=== PATIENT | female | born 1930 | race Caucasian/White ===

== ENCOUNTER 2016-06-03 12:57 | Inpatient (IN) | payer MEDICARE, OTHER ==
[~2016-06-03] VITALS: Ht 157.5 cm; Wt 54.0 kg
[~2016-06-03 12:57] MED LIST: APIX2.5T PO; DILT60TA33 PO; LEXA10TA PO; LISI-515 PO; METO100T PO; NEXI20CA PO; PRAV10TA PO; TRAV0.00 EACH EYE
[2016-06-03 12:59] VITALS: BP 173/78; PULSE 54; RESP 20; TEMP 97.3; O2SAT 91
[2016-06-03 13:15] VITALS: BP 191/84; PULSE 52; RESP 26; TEMP 97.8; O2SAT 84
[2016-06-03] MEDS ORDERED: SODIUM CHLORIDE 0.9% FLUSH 5 ML FLUSH IVF PRN (13:45)
[2016-06-03 13:48] LABS: BLOOD GAS BASE EXCESS -2.3 mmol/L (-2-2); BLOOD GAS CARBOXYHEMOGLOBIN 1.3 % (0-4); BLOOD GAS HCO3 21 mmol/L (22-26); BLOOD GAS METHEMOGLOBIN 0.3 % (0-2); BLOOD GAS O2 HGB SATURATION 93 % (90-100); BLOOD GAS OXYGEN CONTENT 14.2 Vol % (12.0-20.0); BLOOD GAS PCO2 31 mmHg (38-42); BLOOD GAS PO2 68 mmHG (61-120); BLOOD GAS TOTAL HGB 10.8 G/DL (12.0-16.0); CRITICAL VALUE NO; DRAW SITE LT RADIAL; LITER FLOW 4 L/M; NUMBER OF ARTERIAL PUNCTURES 1; OXYGEN DEVICE NASAL CANNULA; TEMP CORR TO 98.6; ULNAR PULSE PRESENT
[2016-06-03 13:49] LABS: STAT YES
[2016-06-03 13:56] LABS: AUTOMATED NEUTROPHIL # 3.3 TH/MM3 (1.8-7.7); BASOPHIL % 0.7 % (0.0-2.0); EOSINOPHIL # 0.1 TH/MM3 (0-0.4); EOSINOPHIL % 1.8 % (0.0-4.0); HEMATOCRIT 34.2 % (35.0-46.0); HEMO FLAGS DIFF FINAL; LYMPH % 20.6 % (9.0-44.0); LYMPHOCYTE # 1.1 TH/MM3 (1.0-4.8); MEAN CELL VOLUME 92.2 FL (80.0-100.0); MEAN CORPUSCULAR HEMOGLOBIN 30.9 PG (27.0-34.0); MEAN CORPUSCULAR HGB CONC 33.5 % (32.0-36.0); MONO % 14.2 % (0.0-8.0); NEUT % 62.7 % (16.0-70.0); PLATELET COUNT 308 TH/MM3 (150-450); RED CELL DISTRIBUTION WIDTH 16.3 % (11.6-17.2); WHITE BLOOD COUNT 5.3 TH/MM3 (4.0-11.0)
[2016-06-03 14:10] LABS: BACTERIA, URINE RARE /hpf; BLOOD, URINE NEG (NEG); GLUCOSE,URINE NEG (NEG); KETONE, URINE NEG (NEG); MUCUS URINE FEW /lpf (OCC); NITRITE,URINE NEG (NEG); SQUAMOUS EPITHELIAL CELL URINE 1 /hpf (0-5)
[2016-06-03 14:12] LABS: COMMENT (UR) CATH-CULTURE IND; CULTURE IF INDICATED CATH CULTURE IND; URINE COLOR LIGHT AMBER (YELLW/STRAW)
[2016-06-03 14:13] LABS: APTT (PATIENT) 34.5 SEC (24.3-30.1); INTERNATIONAL NORMALIZED RATIO 1.5 RATIO; PROTHROMBIN TIME - PATIENT 16.7 SEC (9.8-11.6)
[2016-06-03 14:16] LABS: ANION GAP 6 MEQ/L (5-15); BICARBONATE 25.6 MEQ/L (21.0-32.0); BLOOD UREA NITROGEN 5 MG/DL (7-18); CHLORIDE 107 MEQ/L (98-107); GLOMERULAR FILTRATION RATE 82 ML/MIN (>89); SODIUM (NA) 139 MEQ/L (136-145)
--- NOTE | 2016-06-03 14:24 | PD ---
HPI Chief Complaint: Respiratory Distress Time Seen by Provider: 13:12 Travel History International Travel<30 days: No Contact w/Intl Traveler<30days: No Traveled to known affect area: No History of Present Illness HPI Patient is a 86-year-old female with history of HTN, CVA/TIA, A. fib who presents the emergency department with complaint of diarrhea. Patient states that she had a stroke last January/February and ever since has been ill with diarrhea. It has increased slightly over the course the last week, and is now darker. Patient is anticoagulated for history of CVA/TIA. Patient is slightly dyspneic on exam and though she initially did not complain of this, upon further questioning was dyspneic for the last 2 days at home. She has not had any cough or chest congestion, no documented fevers. She denies any history of underlying lung disease. No chest pain. PFSH Past Medical History Hx Anticoagulant Therapy: Yes Alzheimer's Disease: Yes Atrial Fibrillation: Yes Anxiety: Yes Depression: Yes Heart Rhythm Problems: Yes (RVR) Cardiac Catheterization: Yes (ablation) Cardiovascular Problems: Yes High Cholesterol: Yes (resolved) Cerebrovascular Accident: Yes Dementia: Yes (slight) Diminished Hearing: Yes GERD: Yes Hiatal Hernia: Yes Hypertension: Yes Neurologic: Yes Immunizations Current: Yes ?: Not Menopausal: Yes Past Surgical History Abdominal Surgery: Yes (HERNIA ) Section: Yes Eye Surgery: Yes (removal of cataracts - bilateral) Gynecologic Surgery: Yes (removal of ovarian cyst) Hysterectomy: Yes Tonsillectomy: Yes Other Surgery: Yes (DERMOID CYST REMOVED AT 46 YEARS OF AGE, ) Social History Alcohol Use: Yes (1 per day) Tobacco Use: No Substance Use: No Allergies-Medications (Allergen,Severity, Reaction): Coded Allergies: Lactose (Verified Allergy, Severe, Cramping, 02/14/16) Reported Meds & Prescriptions Reported Meds & Active Scripts Active Pravastatin 10 Mg Tab 10 Mg PO DAILY Eliquis (Apixaban) 2.5 Mg Tab 2.5 Mg PO BID@ Reported Lexapro (Escitalopram Oxalate) 10 Mg Tab 10 Mg PO DAILY Nexium (Esomeprazole DR) 20 Mg Capdr 20 Mg PO DAILY Metoprolol Tartrate 100 Mg Tab 100 Mg PO BID Review of Systems ROS Limitations: Poor Historian Except as stated in HPI: all other systems reviewed are Neg Physical Exam Exam Limitations: Poor Historian Narrative GENERAL: Elderly female in mild respiratory distress SKIN: Warm and dry. HEAD: Normocephalic. EYES: No scleral icterus. No injection or drainage. ENT: Mucous membranes pink and moist. NECK: Supple CARDIOVASCULAR: Bradycardic with heart rate in the 50s, regular rhythm. No murmur appreciated. RESPIRATORY: Mild respiratory distress, decreased in bilateral bases GASTROINTESTINAL: Abdomen soft, non-tender, nondistended. MUSCULOSKELETAL: No obvious deformities. No edema. NEUROLOGICAL: Awake and alert. Motor grossly within normal limits. Normal speech. PSYCHIATRIC: Appropriate mood and affect; insight and judgment normal. Data Data Last Documented VS Vital Signs Date Time Temp Pulse Resp B/P Pulse Ox O2 Delivery O2 Flow Rate FiO2 06/03/16 15:40 50 23 195/85 96 Nasal Cannula 3 06/03/16 13:15 97.8 Orders Complete Blood Count With Diff (06/03/16 13:33) Basic Metabolic Panel (Bmp) (06/03/16 13:33) D-Dimer (06/03/16 13:33) Act Partial Throm Time (Ptt) (06/03/16 13:33) Prothrombin Time / Inr (Pt) (06/03/16 13:33) Troponin I (06/03/16 13:33) Arterial Blood Gas (Abg) (06/03/16 13:33) Urinalysis - C+S If Indicated (06/03/16 13:33) Iv Access Insert/Monitor (06/03/16 13:33) Electrocardiogram (06/03/16 13:33) Ecg Monitoring (06/03/16 13:33) Oximetry (06/03/16 13:33) Oxygen Administration (06/03/16 13:33) Chest, Single Ap (06/03/16 13:33) Cath For Specimen (06/03/16 13:33) Sodium Chloride 0.9% Flush (Ns Flush) (06/03/16 13:45) Type And Screen (06/03/16 13:33) Urine Culture (06/03/16 13:40) Ct Pulmonary Angiogram (06/03/16 14:16) Potassium Chloride (Kcl) (06/03/16 14:45) Iohexol 350 Inj (Omnipaque 350 Inj) (06/03/16 15:30) Labs Laboratory Tests Test 06/03/16 06/03/16 06/03/16 13:30 13:40 14:25 White Blood Count 5.3 TH/MM3 Red Blood Count 3.70 MIL/MM3 Hemoglobin 11.4 GM/DL Hematocrit 34.2 % Mean Corpuscular Volume 92.2 FL Mean Corpuscular Hemoglobin 30.9 PG Mean Corpuscular Hemoglobin 33.5 % Concent Red Cell Distribution Width 16.3 % Platelet Count 308 TH/MM3 Mean Platelet Volume 8.2 FL Neutrophils (%) (Auto) 62.7 % Lymphocytes (%) (Auto) 20.6 % Monocytes (%) (Auto) 14.2 % Eosinophils (%) (Auto) 1.8 % Basophils (%) (Auto) 0.7 % Neutrophils # (Auto) 3.3 TH/MM3 Lymphocytes # (Auto) 1.1 TH/MM3 Monocytes # (Auto) 0.8 TH/MM3 Eosinophils # (Auto) 0.1 TH/MM3 Basophils # (Auto) 0.0 TH/MM3 CBC Comment DIFF FINAL Differential Comment Prothrombin Time 16.7 SEC Prothromb Time International 1.5 RATIO Ratio Activated Partial 34.5 SEC Thromboplast Time D-Dimer Quantitative (PE/DVT) 0.78 MG/L FEU Sodium Level 139 MEQ/L Potassium Level 2.9 MEQ/L Chloride Level 107 MEQ/L Carbon Dioxide Level 25.6 MEQ/L Anion Gap 6 MEQ/L Blood Urea Nitrogen 5 MG/DL Creatinine 0.68 MG/DL Estimat Glomerular Filtration 82 ML/MIN Rate Random Glucose 103 MG/DL Calcium Level 8.4 MG/DL Troponin I LESS THAN 0.02 NG/ML Urine Color LIGHT MAX Urine Turbidity CLEAR Urine pH 6.0 Urine Specific [place] 1.020 Urine Protein TRACE mg/dL Urine Glucose (UA) NEG mg/dL Urine Ketones NEG mg/dL Urine Occult Blood NEG Urine Nitrite NEG Urine Bilirubin NEG Urine Urobilinogen LESS THAN 2.0 MG/DL Urine Leukocyte Esterase TRACE Urine RBC 1 /hpf Urine WBC 1 /hpf Urine Squamous Epithelial 1 /hpf Cells Urine Bacteria RARE /hpf Urine Mucus FEW /lpf Microscopic Urinalysis Comment CATH-CULTURE IND Blood Gas Puncture Site LT RADIAL Blood Gas Patient Temperature 98.6 Blood Gas HCO3 21 mmol/L Blood Gas Base Excess -2.3 mmol/L Blood Gas Oxygen Saturation 93 % Arterial Blood pH 7.45 Arterial Blood Partial 31 mmHg Pressure CO2 Arterial Blood Partial 68 mmHG Pressure O2 Arterial Blood Oxygen Content 14.2 Vol % Arterial Blood 1.3 % Carboxyhemoglobin Arterial Blood Methemoglobin 0.3 % Blood Gas Hemoglobin 10.8 G/DL Oxygen Delivery Device NASAL CANNULA Blood Gas Liter Flow 4 L/M Blood Type O POSITIVE Antibody Screen NEGATIVE Blood Bank Comment MDM Medical Decision Making Medical Screen Exam Complete: Yes Emergency Medical Condition: Yes Medical Record Reviewed: Yes Differential Diagnosis 86-year-old female with history of HTN, CVA/TIA, A. fib here with complaint of chronic diarrhea acutely worsened over the last several days to week, slightly darker in color with dyspnea for the last 2 days. Differential includes chronic diarrhea, electrolyte abnormality, dehydration, GI bleed, coagulopathy, pulmonary embolism, pneumonia, ACS, arrhythmia. Narrative Course Patient placed on monitor, IV established and blood obtained. O2 saturations borderline placed on supplemental oxygen. Twelve-lead EKG shows sinus bradycardia, no notable ST abnormalities, normal intervals. CBC, BMP, coags, type and screen troponin, d-dimer, urinalysis, ABG were obtained and notable for pH 7.45, PCO2 31, bicarbonate 21, PaO2 68. D-dimer elevated 0.78. Potassium 2.9, replaced with 80 mg orally. Portable chest x-ray obtained that by my read shows large left pleural effusion and small right pleural effusion. Mild cardiomegaly. CT pulmonary angiogram showed no evidence of PE. Moderate right and moderate to large left pleural effusion with bibasilar consolidation. Patient given dose of IV Lasix. She remains hypoxic and will be admitted for further management. Diagnosis Primary Impression: Pleural effusion Additional Impressions: Hypoxia Shortness of breath Diarrhea Qualified Code: R19.7 - Diarrhea, unspecified type Admitting Information Admitting Physician Requests: Admit Larissa Mckenzie MD Jun 03, 2016 14:24
[2016-06-03 14:28] LABS: POTASSIUM 2.9 MEQ/L (3.5-5.1)
--- NOTE | 2016-06-03 14:29 | RADRPT ---
EXAM DATE/TIME: 06/03/2016 13:49 [facility] COMPARISON: No previous studies available for comparison. INDICATIONS : Patient states shortness of breath. MEDICAL HISTORY : None. SURGICAL HISTORY : None. ENCOUNTER: Initial ACUITY: 1 day PAIN SCORE: 2/10 LOCATION: Bilateral chest FINDINGS: The cardiac silhouette is enlarged. There is increased density at the left base with silhouetting lef t hemidiaphragm. There is overall prominence of the interstitium. CONCLUSION: 1. Moderate left effusion. Some degree of left base atelectasis or consolidation is also needs to be considered. 2. Cardiomegaly. 3. Diffuse interstitial prominence likely representing pulmonary venous hypertension or mild edema. Jerry Jacobo MD on June 03, 2016 at 14:26 Board Certified Radiologist. This report was verified electronically.
[2016-06-03] MEDS ORDERED: POTASSIUM CHLORIDE 20 MEQ CONTROLLED RELEASE TAB PO ONE (14:45)
[2016-06-03] MEDS ORDERED: IOHEXOL 350 MG/ML 10 ML VIAL (for RAD DIAG) IV ONE (15:30)
[2016-06-03 15:40] VITALS: BP 195/85; PULSE 50; RESP 23; O2SAT 96
--- NOTE | 2016-06-03 15:44 | RADRPT ---
EXAM DATE/TIME: 06/03/2016 15:17 [facility] COMPARISON: No previous studies available for comparison. INDICATIONS : Short of breath. Evaluate for pulmonary embolism. IV CONTRAST: 50 cc Omnipaque 350 (iohexol) IV RADIATION DOSE: 7.05 CTDIvol (mGy) MEDICAL HISTORY : Cardiovascular disease. Cerebrovascular disease. Hypertension. SURGICAL HISTORY : Hysterectomy. ENCOUNTER: Initial ACUITY: 2 days PAIN SCALE: 0/10 LOCATION: chest TECHNIQUE: Volumetric scanning of the chest was performed using a pulmonary embolism protocol MIP images were re constructed. Using automated exposure control and adjustment of the mA and/or kV according to patien t size, radiation dose was kept as low as reasonably achievable to obtain optimal diagnostic quality images. FINDINGS: There is no pulmonary embolus. Moderate right and moderate to large left pleural effusions are present with basilar dependent consol idation. Mild left atrial enlargement. There is right and left-sided coronary artery calcification. Contrast r efluxes down the hepatic veins, can be seen in the setting of tricuspid regurgitation. No lymphadenopathy demonstrated. CONCLUSION: 1. No pulmonary embolus. 2. Moderate right and moderate to large left pleural effusions with basilar consolidation. 3. Mild left atrial margin. Possible tricuspid regurg. 4. Coronary artery calcification. Jerry Mcdonough MD on June 03, 2016 at 15:40 Board Certified Radiologist. This report was verified electronically.
[2016-06-03] MEDS ORDERED: FUROSEMIDE 40 MG/4 ML VIAL IV PUSH ONE (16:00)
[2016-06-03] MEDS ORDERED: hydrALAZINE HCL 20 MG/ML VIAL IV PUSH ONE (16:30)
[2016-06-03] MEDS ORDERED: SODIUM CHLORIDE 0.9% FLUSH 5 ML FLUSH FLUSH PRN (17:30)
[2016-06-03] MEDS ORDERED: NALOXONE HCL 0.4 MG/ML AMP IV PRN (17:30)
[2016-06-03] MEDS ORDERED: ACETAMINOPHEN 325 MG TAB PO PRN (17:30)
[2016-06-03] MEDS ORDERED: ONDANSETRON HCL 4 MG/2 ML VIAL IVP PRN (17:30)
[2016-06-03] MEDS ORDERED: NON-FORMULARY DRUG (Esomeprazole DR (Nexium) 20 MG) PO SCH (17:30)
[2016-06-03 18:38] VITALS: BP 172/75
--- NOTE | 2016-06-03 18:42 | MH ---
DATE OF ADMISSION 06/03/2016 ADMITTING PHYSICIAN Jorge Macedo MD ATTENDING PHYSICIAN Dr. Jaxson Kelly. CHIEF COMPLAINT Diarrhea, respiratory distress. HISTORY OF THE PRESENT ILLNESS The patient is a very pleasant 86-year-old female with a past medical history significant for hypertension, atrial fibrillation, cerebrovascular accident / transient ischemic attack who presents to the emergency room with complaints of diarrhea. Per patient she had a stroke last January and ever since she has been ill with diarrhea. It has increased slightly over the course of the last week and now is darker. The patient is anticoagulated for a history of cerebrovascular accident / transient ischemic attack. The patient is slightly dyspneic on examination and though she initially did not complain of this, upon further questioning she did say that her dyspnea has been progressively worsening for the last two days. Denies any cough or chest congestion. Denies any chest pain. Denies any pedal edema. Denies any fever. Per patient she had CT-guided aspiration of left pleural effusion two months ago at [facility]. Her maintenance associate is Dr. Abel. She also had cardiac ablation times two. Her micro photographer is Dr. Lares. In the ER a chest x-ray done showed moderate left effusion, some degree of left base atelectasis or consolidation. The D-dimer done in the ER was elevated at 0.78, so a CT angiography was requested which ruled out any pulmonary embolism but it did show moderate right moderate to large left pleural effusions with basilar consolidation. Because of the patient's symptomatology and the abnormal findings, the patient was admitted for further evaluation. PAST MEDICAL HISTORY 1. Atrial fibrillation. 2. Hypertension. 3. Hyperlipidemia. 4. History of cerebrovascular accident. 5. Gastroesophageal reflux disease. 6. Hiatal hernia. 7. History of pleural effusion. PAST SURGICAL HISTORY 1. Hysterectomy. 2. Removal of dermoid cyst. 3. Right inguinal hernia repair. 4. Bilateral cataract surgery. 5. Tonsillectomy. 6. Cardiac ablation times two. 7. CT-guided aspiration of left pleural effusion. SOCIAL HISTORY Denies any tobacco use or illicit drug use. Has one glass of wine per day. Lives with her . FAMILY HISTORY Significant for dementia in mother. Prostate cancer in father. ALLERGIES LACTOSE. MEDICATIONS Active medications: 1. Pravastatin 10 milligrams p.o. q.h.s. 2. Eliquis 2.5 milligrams p.o. twice a day. 3. Lexapro 10 milligrams p.o. daily. 4. Nexium 20 milligrams p.o. daily. 5. Metoprolol tartrate 100 milligrams p.o. twice a day. REVIEW OF SYSTEMS GENERAL: Complains of generalized weakness. HEENT: Denies any headache, ear, nose, and throat pain. RESPIRATORY: Does complain of dyspnea. Denies any wheezing. CARDIOVASCULAR: Denies any chest pain. Denies any orthopnea or paroxysmal nocturnal dyspnea. GASTROINTESTINAL: Does complain of chronic diarrhea since January of last year. No nausea or vomiting. MUSCULOSKELETAL: No joint pains. NEUROLOGICAL: Mild weakness of the left leg since her stroke in January of last year. PSYCHIATRIC: No depression or anxiety. Denies any suicidal ideation or homicidal intention. PHYSICAL EXAMINATION GENERAL: Elderly, frail, female in mild respiratory distress on 2 liters of oxygen. SKIN: Warm and dry. HEAD: Atraumatic, normocephalic. EYES: Pupils are equal, round and reactive to light. Extraocular movements are intact. No scleral icterus. No conjunctival injection or drainage. EARS, NOSE, AND THROAT: Mucous membranes are pink and moist. NECK: Supple. No JVD. CARDIOVASCULAR: Bradycardic with heart rate in the 50s. Regular rhythm. A 3/6 systolic ejection murmur. LUNGS: Mild respiratory distress. Decreased breath sounds bilaterally with basilar rales. GASTROINTESTINAL: Abdomen is soft and nontender, nondistended. No bowel sounds heard in all four quadrants. No organomegaly. MUSCULOSKELETAL: No obvious deformity. No edema. NEUROLOGICAL: The patient is awake and alert. Strength is 4/4 in the left lower extremity. Normal speech. PSYCHIATRIC: Appropriate mood and affect. Insight and judgment are normal. VITAL SIGNS: Blood pressure at the time of examination 195/85, heart rate is 50, respiratory rate 23, pulse oximetry is 96% on 3 liters nasal cannula. LABORATORY DATA Labs done showed a WBC of 5.3, hemoglobin 11.4, hematocrit 34.2. Platelets 308,000. PT is 16.7, INR is 1.5. D-dimer is 0.78. Potassium is 2.9, chloride 107, BUN 5, creatinine 0.68. Calcium is 8.4. Troponin I is less than 0.02. Urinalysis is positive for leukocyte esterase. ABG shows a bicarbonate of 21, oxygen is 93%. IMAGING A chest x-ray showed large pleural effusion and small right pleural effusion. Mild cardiomegaly. CT pulmonary angiogram showed no evidence of pulmonary embolism. Moderate right and moderate to large left pleural effusion with bibasilar consolidation. A 12-lead EKG showed sinus bradycardia, no notable ST abnormalities, normal intervals. DIAGNOSTIC IMPRESSION 1. Bilateral pleural effusions, left greater than right. 2. Dyspnea. 3. Hypoxia. 4. Hypokalemia. 5. Diarrhea. 6. History of left pleural effusion. 7. Atrial fibrillation. 8. Hyperlipidemia. 9. Gastroesophageal reflux disease. 10. Depression. PLAN We will admit the patient to cardiac care unit. Start the patient on continuous telemetry monitoring. We will start the patient empirically on Rocephin. We will continue the patient on oxygen, titrate to keep pulse oximetry about 92% . We will request pulmonary consultation with Dr. Lares, cardiology consultation with Dr. Abel. Heme-occult stool done in the emergency room was negative. We will request a 2-D echocardiogram. Patient has received potassium in the emergency room and also a dose of IV Lasix. We will repeat potassium level. We will continue the patient on IV Lasix 40 milligrams IV twice a day. We will monitor the electrolytes and replace as needed. We will also request a GI consultation with Dr. Eid. We will request a CT scan of the abdomen to rule out any colitis or diverticulitis. We will continue the home medications as appropriate. Deep venous thrombosis prophylaxis with Eliquis. Peptic ulcer disease prophylaxis with Nexium. We will check the CBC and the BMP in the a.m. we will also check TSH, T4 and lipid profile. We will also check lipase and amylase. Further management depends upon the hospital course. The patient is acutely ill, has presented with shortness of breath and diarrhea. Recent labs have shown severe hypokalemia and the CT scan has shown bilateral pleural effusions. The patient will need a complete pulmonary, gastrointestinal and cardiologic workup. The patient will need an inpatient stay of minimum three midnights. Anticipate discharge to home with home health care when stable. MD SANJAY Caldera
[2016-06-03 20:00] VITALS: BP 191/86; PULSE 68; RESP 17; TEMP 96.4; O2SAT 97
[2016-06-03] MEDS: SODIUM CHLORIDE 0.9% FLUSH 5 ML FLUSH FLUSH SCH (20:57)
[2016-06-03] MEDS: METOPROLOL TARTRATE 100 MG TAB PO SCH (20:57)
--- NOTE | 2016-06-03 21:04 | RADRPT ---
EXAM DATE/TIME: 06/03/2016 20:20 [facility] COMPARISON: CT PULMONARY ANGIOGRAM, June 03, 2016, 15:17. INDICATIONS : Diarrhea. ORAL CONTRAST: No oral contrast ingested. RADIATION DOSE: 8.73 CTDIvol (mGy) MEDICAL HISTORY : Cardiovascular disease. Dementia. Alzheimers.Hypertension. CVA. SURGICAL HISTORY : Hysterectomy. ENCOUNTER: Initial ACUITY: 1 day PAIN SCALE: 0/10 LOCATION: lower quadrant TECHNIQUE: Volumetric scanning of the abdomen and pelvis was performed. Using automated exposure control and ad justment of the mA and/or kV according to patient size, radiation dose was kept as low as reasonably achievable to obtain optimal diagnostic quality images. FINDINGS: Fluid-filled colon noted. No obstruction or high-grade inflammatory changes are demonstrated. Noncontrast appearance of the solid organs within normal limits. Incidentally seen 2 cm cyst of the r ight kidney. Both kidneys are excreting the contrast from the CT pulmonary and are gram done earlier today. There is excreted contrast collected in the urinary bladder. A small bubble of gas is seen in the urinary bladder is well. Several small dependently layering stones are seen in an otherwise normal-appearing gallbladder. No p erceptible wall thickening. No ductal stone or ductal dilatation. There is dense atherosclerotic calcification of the abdominal aorta. No aneurysm demonstrated. There are moderate right and moderate to large left pleural effusions at the visualized lung bases. CONCLUSION: 1. Nonspecific fluid-filled colon. No obstruction or perceptible inflammatory changes. 2. Small stones in the gallbladder without evidence of conus cystitis or biliary obstruction. 3. Atherosclerotic and tortuous abdominal aorta. No aneurysm. 4. Bilateral pleural effusions. 5. Small bubble of gas in the urinary bladder; was the bladder recently catheterized? Jerry Mcdonough MD on June 03, 2016 at 20:58 Board Certified Radiologist. This report was verified electronically.
[2016-06-04] VITALS (8 sets, daily range): BP systolic 106–194; BP diastolic 46–83; PULSE 56–63; RESP 17–18; TEMP 96.5–98.2; O2SAT 92–97
[2016-06-04] MEDS: ZOLPIDEM TARTRATE 5 MG TAB PO PRN ×2 (01:47→21:40)
[2016-06-04] MEDS: DOCUSATE SODIUM 100 MG CAP PO SCH ×2 (04:21→17:15)
[2016-06-04 05:12] LABS: HEMATOCRIT 35.6 % (35.0-46.0); MEAN CELL VOLUME 90.7 FL (80.0-100.0); MEAN CORPUSCULAR HEMOGLOBIN 30.5 PG (27.0-34.0); MEAN CORPUSCULAR HGB CONC 33.6 % (32.0-36.0); PLATELET COUNT 315 TH/MM3 (150-450); RED BLOOD COUNT 3.92 MIL/MM3 (4.00-5.30); RED CELL DISTRIBUTION WIDTH 16.3 % (11.6-17.2); REVIEW FLAG FINAL; WHITE BLOOD COUNT 6.4 TH/MM3 (4.0-11.0)
[2016-06-04 05:45] LABS: ALKALINE PHOSPHATASE 80 U/L (45-117); ALT (GPT) 26 U/L (10-53); AMYLASE 60 U/L (25-115); ANION GAP 11 MEQ/L (5-15); AST (GOT) 23 U/L (15-37); BICARBONATE 23.3 MEQ/L (21.0-32.0); BLOOD UREA NITROGEN 6 MG/DL (7-18); CHLORIDE 109 MEQ/L (98-107); FREE T4 1.63 NG/DL (0.76-1.46); GLOMERULAR FILTRATION RATE 85 ML/MIN (>89); HDL CHOLESTEROL 27.9 MG/DL (40.0-60.0); LDL CHOLESTEROL 64 MG/DL (0-99); SODIUM (NA) 143 MEQ/L (136-145); TOTAL BILIRUBIN ADULT 0.6 MG/DL (0.2-1.0)
[2016-06-04 06:03] LABS: POTASSIUM 2.9 MEQ/L (3.5-5.1)
[2016-06-04] MEDS: APIXABAN 2.5 MG TABLET PO SCH ×2 (06:34→17:15)
[2016-06-04] MEDS: FUROSEMIDE 40 MG/4 ML VIAL IV PUSH SCH (08:33)
[2016-06-04] MEDS: METOPROLOL TARTRATE 100 MG TAB PO SCH ×2 (08:34→21:00)
[2016-06-04] MEDS: PRAVASTATIN SOD 10 MG TAB PO SCH (08:34)
[2016-06-04] MEDS: POTASSIUM CHLORIDE 10 MEQ CONTROLLED RELEASE TAB PO SCH (08:35)
[2016-06-04] MEDS: ESCITALOPRAM OXALATE 10 MG TAB PO SCH (08:35)
[2016-06-04] MEDS: PANTOPRAZOLE SOD 20 MG DELAYED RELEASE TAB PO SCH (08:35)
[2016-06-04] MEDS: SODIUM CHLORIDE 0.9% FLUSH 5 ML FLUSH FLUSH SCH ×2 (08:35→21:00)
[2016-06-04] MEDS ORDERED: POTASSIUM CHLOR 10 MEQ PREMIX 100 ML IV ONE (09:00)
[2016-06-04] MEDS ORDERED: hydrALAZINE HCL 20 MG/ML VIAL IV PUSH PRN (11:45)
[2016-06-04] MEDS: amLODIPine BESYLATE 5 MG TAB PO SCH (12:16)
--- NOTE | 2016-06-04 12:52 | MB ---
cc: LORNE WOLFF M.D., VINCENT G. DO DATE OF CONSULTATION: 06/04/2016 REASON FOR CONSULTATION Atrial fibrillation, pleural effusion. PRIMARY [employer]ER Dr. Lorne Wolff. HISTORY OF PRESENT ILLNESS Eleanor Alfonso is a pleasant 86-year-old female who presents to [facility] Emergency Room on June 03, 2016. She initially had a complaint of diarrhea which has been going on for 4-5 weeks. Over the last week it has been getting significantly worse. She was noted to be slightly dyspneic on exam and did not initially complain of it but upon further questioning by the emergency room she states that she has been a little more short of breath at home than usual for the past two days. She has not had any cough or congestion, fever or chills. She denies chest pain. In seeing her today she states that her shortness of breath is still there but somewhat better. She denies chest pain. She previously was at [facility] and had aspiration of a left pleural effusion. PAST MEDICAL HISTORY 1. Atrial fibrillation. 2. Hypertension. 3. Hyperlipidemia. 4. History of CVA (January 2016) with mild left-sided weakness as residual. 5. Gastroesophageal reflux disease. 6. Hiatal hernia. 7. History of pleural effusion. PAST SURGICAL HISTORY 1. Hysterectomy. 2. Removal of a dermoid cyst. 3. Right inguinal hernia repair. 4. Bilateral cataract surgery. 5. Tonsillectomy. 6. Atrial fibrillation ablation x2. 7. Aspiration of a left pleural effusion (2 months ago). ALLERGIES LACTULOSE. MEDICATIONS 1. Eliquis 2.5 mg b.i.d. 2. Lexapro 10 mg daily. 3. Metoprolol tartrate 100 mg b.i.d. 4. Pravastatin 10 mg daily. 5. Nexium 20 mg daily. FAMILY HISTORY Denies premature coronary artery disease or sudden cardiac within the family. SOCIAL HISTORY Denies any tobacco or illicit drug abuse. Has one glass of wine per day. Lives with her . REVIEW OF SYSTEMS 14-systems were reviewed including osteopathic pertinent positives and negatives above, otherwise negative. PHYSICAL EXAMINATION VITAL SIGNS: Temperature 97.1, heart rate 60, blood pressure 178/83, respirations 18, pulse ox 97% on room air. GENERAL: In general the patient appears well, in no acute distress, alert, awake and oriented x3. Extraocular muscles intact. Mucous membranes are moist. NECK: Supple. No JVD at 45 degrees. No carotid bruits heard bilaterally. Carotid upstroke is brisk in nature. HEART: Heart is regular rate and rhythm. Positive first and second heart sounds with a 2/6 mid peaking crescendo-decrescendo murmur to the right sternal border. LUNGS: Lungs have decreased breath sounds at bilateral bases. ABDOMEN: Soft, nontender, nondistended. No organomegaly noted. EXTREMITIES: Show no clubbing, cyanosis or edema. NEUROLOGIC: Mild weakness of the left leg. SKIN: Warm, dry and intact. OSTEOPATHIC: Mild kyphoscoliosis, no lordosis or paraspinal tender points. LABORATORY FINDINGS Hemoglobin 11.9, hematocrit 35.6, platelets 315. Potassium 2.9, BUN 6, creatinine 0.66, troponin 0.02 increasing to 0.15 and then down to 0.02. Total cholesterol 101, LDL 64, HDL 27.9, triglycerides 47, TSH 2.18. Electrocardiogram (June 03, 2016 at 1408) sinus bradycardia, nonspecific ST-T wave changes. IMPRESSION 1. Significant chronic diarrhea. 2. Bilateral pleural effusions with recent aspiration of left pleural effusion. 3. Significant hypokalemia most likely due to diarrhea. 4. Hypoalbuminemia. 5. Dyspnea secondary to pleural effusions. 6. Minimal elevation of troponin. 7. Atrial fibrillation. 8. History of recent stroke (January 2016). 9. Hyperlipidemia. 10. Gastroesophageal reflux disease. 11. Depression. RECOMMENDATIONS 1. Eleanor may be having increase in her pleural effusions for multiple reasons including possible diastolic dysfunction with an elevated blood pressure, possible atrial fibrillation with rapid ventricular response (currently in normal sinus rhythm) or due to third spacing due to hypoalbuminemia. 2. Will check an echo to look at her overall left ventricular function, cardiac structure and possible valvulopathies. Previous echocardiogram showed normal function with moderate aortic stenosis and mild aortic regurgitation. 3. Her atrial fibrillation is currently controlled on metoprolol. 4. She will continue on her Eliquis for her atrial fibrillation. If there is a plan for possible thoracentesis then this can be stopped in anticipation. 5. Extensive diarrhea for which GI has been consulted. 6. Hypokalemia most likely due to her chronic diarrhea. 7. Mild elevation in troponin most likely secondary to bilateral pleural effusions and shortness of breath. Thank you for allowing me to see Eleanor Alfonso, if there are any questions, please do not hesitate to call. Fox Gomez DO VGP/TLL /10:26 AM /11:31 AM
--- NOTE | 2016-06-04 13:02 | PD.CONS ---
HPI History of Present Illness This is a 86 year old female who presented to the Emergency department with complaints of diarrhea. She has been having 2 to 3 loose stools daily since January when she was hospitalized with a stroke then went to Rehab. Shortly after being in Rehab she developed the loose diarrhea stools.She one stool yesterday that was darker than normal. She is on Eliquis for a Hx of Afib. Denies nausea or vomiting, no abdominal pain, has no seen any blood in stools. Does have shortness of breath C/O being dyspnic at home for 2 days.Last colonoscopy and EGD was 2 to 3 years ago and was normal. Discussed possible procedures colonoscopy and EGD she is not certain she would want a colonoscopy done. (Fang Rubio) PFSH Past Medical History Afib CVA Anxiety Depression CAD Dementia GERD Hiatal hernia HTN Past Surgical History Cataract Colonoscopy/EGD Hernia surgery Ovarian cyst removal Hysterectomy Tonsillectomy (Fang Rubio) Coded Allergies: Lactose (Verified Allergy, Unknown, Cramping, 06/03/16) Medications Reported Meds & Active Scripts Active Pravastatin 10 Mg Tab 10 Mg PO DAILY Eliquis (Apixaban) 2.5 Mg Tab 2.5 Mg PO BID@,18 Reported Lexapro (Escitalopram Oxalate) 10 Mg Tab 10 Mg PO DAILY Nexium (Esomeprazole DR) 20 Mg Capdr 20 Mg PO DAILY Metoprolol Tartrate 100 Mg Tab 100 Mg PO BID Family History noncontributory Social History Non-smoker Drinks one drink daily (Fang Rubio) Review of Systems Gastrointestinal: COMPLAINS OF: Diarrhea (Fang Rubio) GI Exam Vitals I&O Vital Signs Date Time Temp Pulse Resp B/P Pulse Ox O2 Delivery O2 Flow Rate FiO2 06/04/16 12:00 97.0 56 17 194/78 93 06/04/16 10:57 97 Nasal Cannula 21 06/04/16 08:00 97.1 60 18 178/83 92 06/04/16 00:00 97.3 60 17 171/72 96 06/03/16 20:00 96.4 68 17 191/86 97 06/03/16 18:38 58 21 172/75 95 Nasal Cannula 3 06/03/16 15:40 50 23 195/85 96 Nasal Cannula 3 06/03/16 13:54 96 Nasal Cannula 6 06/03/16 13:35 Nasal Cannula 6 06/03/16 13:15 97.8 52 26 191/84 84 06/03/16 12:59 97.3 54 20 173/78 91 Room Air I/O 06/03/16 06/03/16 06/03/16 06/04/16 06/04/16 06/04/16 07:00 15:00 23:00 07:00 15:00 23:00 Intake Total 120 ml 240 ml Balance 120 ml 240 ml Intake Oral 120 ml 240 ml IV Total 0 ml 0 ml # Voids 5 2 Laboratory Test 06/03/16 06/03/16 06/03/16 06/03/16 13:30 13:40 14:25 14:35 White Blood Count 5.3 TH/MM3 Red Blood Count 3.70 MIL/MM3 Hemoglobin 11.4 GM/DL Hematocrit 34.2 % Mean Corpuscular Volume 92.2 FL Mean Corpuscular Hemoglobin 30.9 PG Mean Corpuscular Hemoglobin 33.5 % Concent Red Cell Distribution Width 16.3 % Platelet Count 308 TH/MM3 Mean Platelet Volume 8.2 FL Neutrophils (%) (Auto) 62.7 % Lymphocytes (%) (Auto) 20.6 % Monocytes (%) (Auto) 14.2 % Eosinophils (%) (Auto) 1.8 % Basophils (%) (Auto) 0.7 % Neutrophils # (Auto) 3.3 TH/MM3 Lymphocytes # (Auto) 1.1 TH/MM3 Monocytes # (Auto) 0.8 TH/MM3 Eosinophils # (Auto) 0.1 TH/MM3 Basophils # (Auto) 0.0 TH/MM3 CBC Comment DIFF FINAL Differential Comment Prothrombin Time 16.7 SEC Prothromb Time International 1.5 RATIO Ratio Activated Partial 34.5 SEC Thromboplast Time D-Dimer Quantitative (PE/DVT) 0.78 MG/L FEU Sodium Level 139 MEQ/L Potassium Level 2.9 MEQ/L Chloride Level 107 MEQ/L Carbon Dioxide Level 25.6 MEQ/L Anion Gap 6 MEQ/L Blood Urea Nitrogen 5 MG/DL Creatinine 0.68 MG/DL Estimat Glomerular Filtration 82 ML/MIN Rate Random Glucose 103 MG/DL Calcium Level 8.4 MG/DL Troponin I LESS THAN 0.02 0.15 NG/ML NG/ML Urine Color LIGHT MAX Urine Turbidity CLEAR Urine pH 6.0 Urine Specific [place] 1.020 Urine Protein TRACE mg/dL Urine Glucose (UA) NEG mg/dL Urine Ketones NEG mg/dL Urine Occult Blood NEG Urine Nitrite NEG Urine Bilirubin NEG Urine Urobilinogen LESS THAN 2.0 MG/DL Urine Leukocyte Esterase TRACE Urine RBC 1 /hpf Urine WBC 1 /hpf Urine Squamous Epithelial 1 /hpf Cells Urine Bacteria RARE /hpf Urine Mucus FEW /lpf Microscopic Urinalysis Comment CATH-CULTURE IND Blood Gas Puncture Site LT RADIAL Blood Gas Patient Temperature 98.6 Blood Gas HCO3 21 mmol/L Blood Gas Base Excess -2.3 mmol/L Blood Gas Oxygen Saturation 93 % Arterial Blood pH 7.45 Arterial Blood Partial 31 mmHg Pressure CO2 Arterial Blood Partial 68 mmHG Pressure O2 Arterial Blood Oxygen Content 14.2 Vol % Arterial Blood 1.3 % Carboxyhemoglobin Arterial Blood Methemoglobin 0.3 % Blood Gas Hemoglobin 10.8 G/DL Oxygen Delivery Device NASAL CANNULA Blood Gas Liter Flow 4 L/M Blood Type O POSITIVE Antibody Screen NEGATIVE Blood Bank Comment Test 06/04/16 06/04/16 00:06 04:28 Troponin I 0.02 NG/ML White Blood Count 6.4 TH/MM3 Red Blood Count 3.92 MIL/MM3 Hemoglobin 11.9 GM/DL Hematocrit 35.6 % Mean Corpuscular Volume 90.7 FL Mean Corpuscular Hemoglobin 30.5 PG Mean Corpuscular Hemoglobin 33.6 % Concent Red Cell Distribution Width 16.3 % Platelet Count 315 TH/MM3 Mean Platelet Volume 8.2 FL Sodium Level 143 MEQ/L Potassium Level 2.9 MEQ/L Chloride Level 109 MEQ/L Carbon Dioxide Level 23.3 MEQ/L Anion Gap 11 MEQ/L Blood Urea Nitrogen 6 MG/DL Creatinine 0.66 MG/DL Estimat Glomerular Filtration 85 ML/MIN Rate Random Glucose 110 MG/DL Calcium Level 8.5 MG/DL Total Bilirubin 0.6 MG/DL Aspartate Amino Transf 23 U/L (AST/SGOT) Alanine Aminotransferase 26 U/L (ALT/SGPT) Alkaline Phosphatase 80 U/L Total Protein 6.3 GM/DL Albumin 3.1 GM/DL Triglycerides Level 47 MG/DL Cholesterol Level 101 MG/DL LDL Cholesterol 64 MG/DL HDL Cholesterol 27.9 MG/DL Cholesterol/HDL Ratio 3.62 RATIO Amylase Level 60 U/L Lipase 166 U/L Free Thyroxine 1.63 NG/DL Thyroid Stimulating Hormone 2.180 uIU/ML 3rd Gen Date/Time Procedure Status Source Growth 06/04/16 00:45 Cyclospora Exam Resulted Stool Stool Pending 06/04/16 00:45 Cryptosporidium Exam - Final Resulted Stool Stool NEGATIVE - NO CRYPTOSPORIDIUM ANTIGEN... 06/04/16 00:45 Giardia Antigen (DRE) - Final Resulted Stool Stool NEGATIVE - NO GIARDIA ANTIGEN DETECTE... 06/04/16 00:45 Stool Occult Blood (DRE) - Final Resulted Stool Stool HEMOCCULT NEGATIVE 06/04/16 00:45 Received Stool Stool Pending 3 00:45 Cancelled Stool Stool 06/03/16 18:30 Rotavirus Antigen - Final Complete Stool Stool NEGATIVE - ROTAVIRUS ANTIGEN IS ABSEN... 06/03/16 13:40 Urine Culture - Preliminary Resulted Urine Catheterized Urine NO GROWTH IN 24 HOURS. Physical Examination HEENT: Pupils round and reactive to light; normocephalic; atraumatic; no jaundice. Throat is clear. NECK: Neck is supple, no JVD, no lymphadenopathy. CHEST: Chest is clear to auscultation and percussion. CARDIAC: Regular rate and rhythm with no murmur gallop or rubs. ABDOMEN: Soft, nondistended, nontender; no hepatosplenomegaly; bowel sounds are present in all four quadrants. EXTREMITIES: No clubbing, cyanosis, or edema. SKIN: Normal; no rash; no jaundice. 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 (Fang Rubio INTERIOR DESIGN PROFESSIONAL) Assessment and Plan Assessment: (1) Diarrhea (2) GERD (gastroesophageal reflux disease) Plan This is an 86 year old female admitted with diarrhea which has been chronic since January. Has 2 to 3 loose stools a day. She did notice a stool yesterday that was darker than normal. She is on Eliquis for Afib, had CVA in January. She may need an EGD but Eliquis would need to be held for several days. H&H is stable at 11.9/35.6. She is not interested in a colonoscopy at this time. Stool cultures are pending.CT abdomen and pelvis showed fluid filled colon, small gallstones. Plan -Check stool cultures -Check stools for occult blood -Follow H&H -Continue PPI -May need EGD would need to hold Eliquis several days -Supportive care Further recommendations will follow Patient was seen by Dr. Eid and myself, this consult was written on his behalf. (Fang Rubio) Physician Comments Seen and examined with [facility], admitted with diarrhea. Stool studies-p. CT -ve. at the bedside and states that they see Dr. Monge as an outpt. Discussed with Drs. Wagoner and Monica. Dr. Anderson will take over care from tomorrow. Thank you (Nel Eid MD) Problem Qualifiers (1) Diarrhea: Qualified Code: R19.7 - Diarrhea, unspecified type (2) GERD (gastroesophageal reflux disease): Qualified Code: K21.9 - Gastroesophageal reflux disease, esophagitis presence not specified Fang Rbuio Jun 04, 2016 13:01 Nel Eid MD Jun 04, 2016 14:43
[2016-06-04] MEDS ORDERED: POTASSIUM CHLORIDE 20 MEQ CONTROLLED RELEASE TAB PO ONE (14:30)
--- NOTE | 2016-06-04 14:43 | HHI.PR ---
Subjective Subjective Remarks Alert resting in bed Pleasantly confused Pale Diarrhea last p.m., small amount this a.m. with formed stool before diarrhea in room Review of Systems Constitutional Constitutional: Fatigue, Weakness (generalized) Pulmonary Respiratory: Coughing (occasional), Shortness of Breath (mild at rest) GI/Abdomen GI/Abdominal Exam: Diarrhea Musculoskeletal MS: Stiffness (chronic) Psychiatric Psychiatric: Normal Mood, Anxiety Vitals/Results Intake & Output 06/03/16 06/03/16 06/04/16 15:00 23:00 07:00 Intake Total 120 ml 240 ml Balance 120 ml 240 ml Intake Oral 120 ml 240 ml IV Total 0 ml 0 ml # Voids 5 2 Vital Signs Vital Signs Date Time Temp Pulse Resp B/P Pulse Ox O2 Delivery O2 Flow Rate FiO2 06/04/16 13:50 172/60 06/04/16 12:00 97.0 56 17 194/78 93 06/04/16 10:57 97 Nasal Cannula 21 06/04/16 08:00 97.1 60 18 178/83 92 06/04/16 00:00 97.3 60 17 171/72 96 06/03/16 20:00 96.4 68 17 191/86 97 06/03/16 18:38 58 21 172/75 95 Nasal Cannula 3 06/03/16 15:40 50 23 195/85 96 Nasal Cannula 3 CBC/BMP: 06/04/16 0428 06/04/16 0428 Lab Results Laboratory Tests Test 06/03/16 06/04/16 06/04/16 14:35 00:06 04:28 Troponin I 0.15 NG/ML 0.02 NG/ML White Blood Count 6.4 TH/MM3 Red Blood Count 3.92 MIL/MM3 Hemoglobin 11.9 GM/DL Hematocrit 35.6 % Mean Corpuscular Volume 90.7 FL Mean Corpuscular Hemoglobin 30.5 PG Mean Corpuscular Hemoglobin 33.6 % Concent Red Cell Distribution Width 16.3 % Platelet Count 315 TH/MM3 Mean Platelet Volume 8.2 FL Sodium Level 143 MEQ/L Potassium Level 2.9 MEQ/L Chloride Level 109 MEQ/L Carbon Dioxide Level 23.3 MEQ/L Anion Gap 11 MEQ/L Blood Urea Nitrogen 6 MG/DL Creatinine 0.66 MG/DL Estimat Glomerular Filtration 85 ML/MIN Rate Random Glucose 110 MG/DL Calcium Level 8.5 MG/DL Total Bilirubin 0.6 MG/DL Aspartate Amino Transf 23 U/L (AST/SGOT) Alanine Aminotransferase 26 U/L (ALT/SGPT) Alkaline Phosphatase 80 U/L Total Protein 6.3 GM/DL Albumin 3.1 GM/DL Triglycerides Level 47 MG/DL Cholesterol Level 101 MG/DL LDL Cholesterol 64 MG/DL HDL Cholesterol 27.9 MG/DL Cholesterol/HDL Ratio 3.62 RATIO Amylase Level 60 U/L Lipase 166 U/L Free Thyroxine 1.63 NG/DL Thyroid Stimulating Hormone 2.180 uIU/ML 3rd Gen Microbiology Microbiology 06/03/16 Rotavirus Antigen - Final, Complete NEGATIVE - ROTAVIRUS ANTIGEN IS ABSEN... 06/04/16 , Received Pending 06/04/16 Cyclospora Exam, Resulted Pending 06/04/16 Cryptosporidium Exam - Final, Resulted NEGATIVE - NO CRYPTOSPORIDIUM ANTIGEN... 06/04/16 Giardia Antigen (DRE) - Final, Resulted NEGATIVE - NO GIARDIA ANTIGEN DETECTE... 06/04/16 Stool Occult Blood (DRE) - Final, Resulted HEMOCCULT NEGATIVE Current Medications Active Medications Acetaminophen (Tylenol) 650 mg Q4H PRN PO; Start 06/03/16 at 17:30 Amlodipine Besylate (Norvasc) 5 mg DAILY PO Last administered on 06/04/16 12:16 ; Admin Dose 5 MG; Start 06/04/16 at 11:45 Apixaban (Eliquis) 2.5 mg BID@06,18 PO Last administered on 06/04/16 06:34; Admin Dose 2.5 MG; Start 06/03/16 at 18:00 Docusate Sodium (Colace) 100 mg Q12H PO; Start 06/03/16 at 17:30 Escitalopram Oxalate (Lexapro) 10 mg DAILY PO Last administered on 06/04/16 08: 35; Admin Dose 10 MG; Start 06/03/16 at 17:30 Furosemide (Lasix Inj) 40 mg DAILY IV PUSH; Start 06/04/16 at 09:00 Furosemide (Lasix Inj) 40 mg ONCE ONCE IV PUSH Last administered on 06/03/16 15:56; Admin Dose 40 MG; Start 06/03/16 at 16:00; Stop 06/03/16 at 16:01; Status DC Hydralazine HCl (Apresoline Inj) 10 mg ONCE ONCE IV PUSH Last administered on 16:45; Admin Dose 10 MG; Start 06/03/16 at 16:30; Stop 06/03/16 at 16: 31; Status DC Hydralazine HCl (Apresoline Inj) 10 mg Q6HR PRN IV PUSH; Start 06/04/16 at 11: 45 Iohexol (Omnipaque 350 Inj) 50 ml STK-MED ONCE IV Last administered on 15:30; Admin Dose 50 ML; Start 06/03/16 at 15:30; Stop 06/03/16 at 15:31; Status DC IV Flush (NS Flush) 2 ml BID FLUSH Last administered on 06/04/16 08:35; Admin Dose 2 ML; Start 06/03/16 at 21:00 IV Flush (NS Flush) 2 ml UNSCH PRN FLUSH; Start 06/03/16 at 17:30 Metoprolol Tartrate (Lopressor) 100 mg BID PO Last administered on 06/04/16 08: 34; Admin Dose 100 MG; Start 06/03/16 at 21:00 Naloxone HCl (Narcan Inj) 0.4 mg UNSCH PRN IV; Start 06/03/16 at 17:30 Non-Formulary Medication 20 mg DAILY PO; Start 06/03/16 at 17:30; Status UNV Ondansetron HCl (Zofran Inj) 4 mg Q6H PRN IVP; Start 06/03/16 at 17:30 Pantoprazole Sodium (Protonix) 20 mg DAILY PO Last administered on 06/04/16 08: 35; Admin Dose 20 MG; Start 06/03/16 at 17:45 Potassium Chloride 40 meq 40 meq DAILY PO Last administered on 06/04/16 08:35; Admin Dose 40 MEQ; Start 06/04/16 at 09:00 Potassium Chloride 40 meq 40 meq ONCE ONCE PO; Start 06/04/16 at 14:30; Stop at 14:31; Status DC Potassium Chloride (KCl 10 Meq Premix Inj) 100 ml @ 100 mls/hr NOW ONCE IV Last administered on 06/04/16 11:48; Admin Dose 100 MLS/HR; Start 06/04/16 at 09:00; Stop 06/04/16 at 09:59; Status DC Potassium Chloride (KCl 20 Meq Premix Inj) 100 ml @ 50 mls/hr ONCE ONCE IV; Start 06/04/16 at 15:00; Stop 06/04/16 at 16:59 Potassium Chloride (KCl) 80 meq ONCE ONCE PO Last administered on 06/03/16 15: 52; Admin Dose 80 MEQ; Start 06/03/16 at 14:45; Stop 06/03/16 at 14:46; Status DC Pravastatin Sodium (Pravachol) 10 mg DAILY PO Last administered on 06/04/16 08: 34; Admin Dose 10 MG; Start 06/03/16 at 17:30 Zolpidem Tartrate (Ambien) 5 mg HS PRN PO Last administered on 06/04/16 01:47 ; Admin Dose 5 MG; Start 06/03/16 at 17:30 Physical Exam General General Appearance: Well Developed, Pale, Anxious Appearance Remarks Thin frail Eyes Eye Exam: Pupils Equal, Pupils Reactive Ears & Nose Ears & Nose Exam: Nasal Mucosa [place] (pale) Throat Throat Exam: Oral Mucosa [place] & Moist (pale) Neck Neck Exam: Neck Supple Pulmonary Resp Exam: Decreased Bases, Diminished Breath Sounds, Poor Inspiratory Effort ( low volumes) Cardiology CV Exam: Murmur (holosystolic, grade 4/6 or greater) Gastrointestinal/Abdomen GI Exam: Soft, Bowel Sounds Present Musculoskeletal MS Exam: Atrophy (muscular) Integumentary Skin Exam: Warm, Dry, Intact (thin) Neurologic Neuro Exam: Alert, Awake Neuro Remarks Fair historian, assist with history Assessment/Plan Assessment/Plan 1. Bilateral pleural effusions, left greater than right. Active diurese is from IV Lasix yesterday. Low air volumes mild shortness of breath, improved. diastolic dysfunction with an elevated blood pressure may be some of the reasons for the effusions along with hypo-albuminemia. Echo to be done. Will follow cardiac planning. 2. Dyspnea. O2 management, medical management, secondary to the bilateral pleural effusions. 3. Hypoxia. O2 management resolving 4. Hypokalemia. Continues, IV potassium boluses today. Probable secondary to diarrhea 5. Diarrhea. When necessary medicines for medical management. Appreciate GI consult and assistance with this plan a care 6. History of left pleural effusion. IV Lasix given with active diuresis. Appreciate pulmonary input. May need thoracentesis in the future. 7. Atrial fibrillation. Controlled medical management, appreciate cardiac consult and input. Currently in sinus rhythm, meds include Metroprolol and Eliquis. 8. Hyperlipidemia. Controlled medical management 9. Gastroesophageal reflux disease. Medical management 10. Depression. Medical management 11. HTN , will eval medication management. Has by mouth meds, as well as IV Apresoline prn. Discussed with nurse Discussed with patient Discussed with Dr. Kelly, patient seen on his behalf Cheri Zeng Jun 04, 2016 14:43
[2016-06-04] MEDS ORDERED: POTASSIUM CHLOR 20 MEQ PREMIX 100 ML IV ONE (15:00)
--- NOTE | 2016-06-04 15:26 | EKG ---
Date Performed: 06/03/2016 Time Performed: 14:08:53 PTAGE: 86 years EKG: SINUS BRADYCARDIA MODERATE INTRAVENTRICULAR CONDUCTION DELAY NONSPECIFIC ST & T-WAVE ABNORM ALITY BORDERLINE ECG Compared to the PREVIOUS TRACING the atrial fibrillation has resolved PREVIOUS TRACIN02/13/2016 21.48 DOCTOR: Anne Tai Interpretating Date/Time 06/04/2016 15:26:08
[2016-06-04] MEDS: ENALAPRILAT 2.5 MG/2 ML VIAL IV PUSH PRN (17:14)
[2016-06-05] VITALS (10 sets, daily range): BP systolic 96–199; BP diastolic 49–96; PULSE 58–71; RESP 16–20; TEMP 96.1–98.2; O2SAT 90–95
--- NOTE | 2016-06-05 05:20 | MB ---
cc: HAI VILLAFANA MD, ARJUN D. MD DATE OF CONSULTATION 06/04/2016 REQUESTING PHYSICIAN Hai Villafana MD REASON FOR CONSULTATION Evaluation of pleural effusion. HISTORY OF PRESENT ILLNESS Ms. Alfonso is a an 86-year-old female with history of hypertension, atrial fibrillation, CVA. The patient was admitted at [facility] around [facility] with a TIA. She went to a rehab facility. She stayed there for 15 days. The patient states that after ever since she left the rehab place she has been having diarrhea. She does not have abdominal pain, no blood or mucus in the stool, no fever or chills. The patient came to the hospital with worsening of her shortness of breath. She had a CT of the chest done. It does not show any pulmonary embolism. She showed bilateral pleural effusion, mild atelectasis. Her CBC shows WBC count of 6.4, hemoglobin 11.9, hematocrit 35.6, MCV 90, platelet count 315. Her sodium was 143, potassium 2.9, chloride 109, CO2 23, BUN 6, creatinine 0.66. Blood gas on 4 liters nasal cannula - pH 7.45, pCO2 31, pO2 68, bicarb 21. PAST HISTORY 1. History of pleural effusion. 2. CVA. 3. Hypertension. 4. Atrial fibrillation. 5. Chronic diarrhea. 6. Gastroesophageal reflux. 7. Hiatal hernia. 8. Bilateral cataract surgery. 9. Cardiac ablation done by Dr. Abel. 10. History of thoracentesis. CURRENT MEDICATIONS 1. Enalapril as needed. 2. Amlodipine 5 mg a day. 3. Hydralazine 10 mg q. 6 hours. 4. Lasix 40 mg a day. 5. Potassium 40 mEq a day. 6. Metoprolol 100 mg twice a day. 7. Eliquis 2.5 mg twice a day. 8. Protonix 40 mg a day. ALLERGIES LACTOSE. SOCIAL HISTORY She is , lives with her . Denies any smoking or alcohol abuse. FAMILY HISTORY Unremarkable. REVIEW OF SYSTEMS She has lost weight, has swelling in her legs, has diarrhea. No abdominal pain. No seizures. Does have history of stroke. PHYSICAL EXAMINATION GENERAL: A frail elderly female, mild short of breath, not in any acute distress. VITAL SIGNS: Blood pressure 194/81, heart rate 60, respirations 18, temperature 96.1. HEENT EXAMINATION: Pupils are equal and reactive to light. She has had bilateral cataract surgery done. Oral mucosa, nasal mucosa normal. NECK: Supple. JVP not raised. CHEST: She has decreased breath sounds at the bases and has dull percussion note. CV: S1 and S2 normal. ABDOMEN: Soft, nondistended. Bowel sounds are present. EXTREMITIES: 1+ pedal edema. 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 No focal deficit. IMPRESSION 1. Bilateral pleural effusion, left more than right. 2. Atelectasis. 3. Atrial fibrillation. 4. Chronic diarrhea. 5. History of CVA. 6. History of thoracentesis in the past. PLAN 1. I discussed with the patient about thoracentesis. She feels that she is diuresing a lot with Lasix and she wants to give it a chance. If she is not better, then she will agree for thoracentesis. 2. Workup for diarrhea is underway. 3. Continue diuresis. Lasix, potassium, monitor electrolytes. 4. Further treatment will depend on her course in the hospital. Thank you Dr. Hai Villafana for this consultation. MD YUAN Osborne/SSB /5:57 PM /4:04 AM
[2016-06-05] MEDS: DOCUSATE SODIUM 100 MG CAP PO SCH ×2 (05:30→17:14)
[2016-06-05] MEDS: APIXABAN 2.5 MG TABLET PO SCH (05:34)
[2016-06-05 06:08] LABS: BICARBONATE 24.1 MEQ/L (21.0-32.0); POTASSIUM 3.7 MEQ/L (3.5-5.1)
[2016-06-05] MEDS: FUROSEMIDE 40 MG/4 ML VIAL IV PUSH SCH (09:00)
--- NOTE | 2016-06-05 09:24 | HHI.GIFU ---
GI Follow-up Note Consult Follow-up Subjective: Patient admitted with SOB and chronic diarrhea. GI consult done yesterday by Dr Eid. Stool studies neg so far. She was evaluated [address] Monge for chronic diarrhea and colon bxs were pos for collagenous colitis but she did not follow up for treatment. Objective: PHYSICAL EXAMINATION: Vitals signs stable No fever CARDIAC: Regular rate and rhythm with 2/6 systolic murmur. ABDOMEN: Soft, nondistended, nontender. EXTREMITIES: No clubbing, cyanosis, or edema. SKIN: warm and dry. No jaundice. HAUL TRUCK DRIVER: Tearful affect. Cooperative. Available Data (labs, X- Rays, Procedues) : ASSESSMENT/PLAN: 1. Chronic diarrhea-2013 w/u with EGD and colonoscopy revealed duodenal bxs neg for celiac sprue but pos for collagenous colitis. One of the more effective treatments is oral budesonide 9mg/d but rec R/O C. Diff first. Dr Chase to follow up tomorrow. It was a pleasure seeing Eleanor Alfonso. Thank you for this consult. Entered by: Catalino Cardozo MD Jun 05, 2016 09:24
[2016-06-05] MEDS: PANTOPRAZOLE SOD 20 MG DELAYED RELEASE TAB PO SCH (10:12)
[2016-06-05] MEDS: ESCITALOPRAM OXALATE 10 MG TAB PO SCH (10:13)
[2016-06-05] MEDS: SODIUM CHLORIDE 0.9% FLUSH 5 ML FLUSH FLUSH SCH ×2 (10:13→21:55)
[2016-06-05] MEDS: amLODIPine BESYLATE 5 MG TAB PO SCH (10:13)
[2016-06-05] MEDS: PRAVASTATIN SOD 10 MG TAB PO SCH (10:13)
[2016-06-05] MEDS: POTASSIUM CHLORIDE 10 MEQ CONTROLLED RELEASE TAB PO SCH (10:13)
[2016-06-05] MEDS: METOPROLOL TARTRATE 100 MG TAB PO SCH (10:13)
--- NOTE | 2016-06-05 11:28 | EC ---
Study Study Date:06/04/2016 STUDY CONCLUSIONS SUMMARY - Left ventricle: The cavity size was normal. Wall thickness was at the upper limits of normal. Systolic function was normal. The estimated ejection fraction was in the range of 60% to 65%. Wall motion was normal; there were no regional wall motion abnormalities. - Aortic valve: There was moderate stenosis. Moderate regurgitation. - Mitral valve: Mildly calcified annulus. Mild regurgitation. - Tricuspid valve: Mild-moderate regurgitation. - Pulmonic valve: Mild regurgitation. - Pericardium, extracardiac: There was a left pleural effusion. If LV function is below 40, please consider prescribing an ACEI or ARB or document rationale for non-use. PROCEDURE DATA STUDY STATUS: Elective. Procedure: Transthoracic echocardiography. Image quality was good. Scanning was performed from the parasternal, apical, and subcostal acoustic windows. Study completion: The patient tolerated the procedure well. Transthoracic echocardiography. M-mode, complete 2D, complete spectral Doppler, and color Doppler. Height: Height: 62in. Weight: Weight: 118.8lb. Body mass index: BMI: 21.8kg/m^2. Body surface area: BSA: 1.53m^2. Patient status: Inpatient. CARDIAC ANATOMY LEFT VENTRICLE: The cavity size was normal. Wall thickness was at the upper limits of normal. Systolic function was normal. The estimated ejection fraction was in the range of 60% to 65%. Wall motion was normal; there were no regional wall motion abnormalities. AORTIC VALVE: Moderately calcified leaflets. Doppler: There was moderate stenosis. Moderate regurgitation. Valve area: 0.69cm^2(VTI). Indexed valve area: 0.45cm^2/m^2 (VTI). Valve area: 0.64cm^2 (Vmax). Indexed valve area: 0.42cm^2/m^2 (Vmax). Mean gradient: 19mm Hg (S). Peak gradient: 34mm Hg (S). MITRAL VALVE: Mildly calcified annulus. Doppler: There was no evidence for stenosis. Mild regurgitation. Valve area by pressure half-time: 4cm^2. Indexed valve area by pressure half-time: 2.61cm^2/m^2. Peak gradient: 5mm Hg (D). LEFT ATRIUM: The atrium was mildly to moderately dilated. PULMONIC VALVE: Not well visualized. Doppler: There was no evidence for stenosis. Mild regurgitation. TRICUSPID VALVE: The valve appears to be grossly normal. Doppler: There was no evidence for stenosis. Mild-moderate regurgitation. Peak gradient: 62mm Hg (D). RIGHT ATRIUM: The atrium was mildly dilated. PERICARDIUM: There was no pericardial effusion. Pleura: There was a left pleural effusion. Patient weight: 118.8lb _Ejection fraction:_ 65-75% _Fractional shortening:_ 32% up to 5Kg 5-11.5Kg 11.6-22.9Kg 23-45Kg 45-57Kg Aortic Root 7-13 <17 13-22 17-27 17-27 LA diam 6-13 <23 24-38 33-47 37-40 RVID 10-17 7-15 7-15 7-18 8-17 LVIDd 12-22 <32 24-38 33-47 37-40 LVPW 2-4 3-6 5-7 6-8 7-8 IVS 2-4 3-6 5-7 6-8 7-8 BASIC MEASUREMENTS ADULT NORMAL Left ventricle LV internal dimension, ED, chordal *37.9 mm 43-52 level, PLAX LV internal dimension, ES, chordal 25.4 mm 23-38 level, PLAX Fractional shortening, chordal level, 33 % >29 PLAX LV posterior wall thickness, ED 11.5 mm IVS/LVPW ratio, ED 1 <1.3 Ventricular septum Septal thickness, ED 11.5 mm Aortic valve Leaflet separation *9 mm 15-26 Left atrium Anterior-posterior dimension 45 mm Anterior-posterior dimension index *2.94 cm/m^2 <2.2 Right ventricle RV internal dimension, ED, PLAX 27.8 mm 19-38 BASIC MEASUREMENTS ADULT NORMAL Aortic valve Leaflet separation *9 mm 15-26 Aorta Root diameter, ED 32 mm 20-37 DOPPLER MEASUREMENTS ADULT NORMAL Aortic valve Peak velocity, S 292 cm/s Mean velocity, S 205 cm/s VTI, S 71.6 cm Mean gradient, S 19 mm Hg Peak gradient, S 34 mm Hg Valve area, VTI 0.69 cm^2 Valve area index, VTI 0.45 cm^2/m^2 Valve area, Vmax 0.64 cm^2 Valve area index, Vmax 0.42 cm^2/m^2 Regurgitant velocity, ED 384 cm/s Regurgitant deceleration 3040 cm/s^2 Regurgitant pressure half-time 370 ms Regurgitant gradient, ED 59 mm Hg Mitral valve Peak E-wave velocity 117 cm/s Peak A-wave velocity 34.6 cm/s Pressure half-time 55 ms Peak gradient, D 5 mm Hg Peak E/A ratio 3.4 Valve area, pressure half-time 4 cm^2 Valve area index, pressure half-time 2.61 cm^2/m^2 Tricuspid valve Peak gradient, D 62 mm Hg Maximal inflow velocity 394 cm/s Systemic veins Estimated CVP 10 mm Hg Pulmonic valve Peak velocity, S 65.2 cm/s LEGEND: Mean values are shown as u=mean value. Asterisk (*) bowers values outside specified normal range. Prepared and signed by Fox Gomez [id number]
[2016-06-05 11:57] LABS: C. DIFF EPI 027 PRESUMPTIVE NEGATIVE (NEGATIVE); C. DIFF TOXIN PCR NEGATIVE (NEGATIVE)
--- NOTE | 2016-06-05 13:06 | PD.CARD.PN ---
Subjective Subjective Remarks No chest pain, no shortnes of breath concerned about the fluid and diarrhea Objective Medications Current Medications Medications (Trade) Dose Ordered Sig/Luis A Route Start Time Stop Time Status Last Admin (NS Flush) 2 ml UNSCH PRN FLUSH 06/03/16 17:30 (NS Flush) 2 ml BID FLUSH 06/03/16 21:00 06/05/16 10:13 (Tylenol) 650 mg Q4H PRN PO 06/03/16 17:30 (Zofran Inj) 4 mg Q6H PRN IVP 06/03/16 17:30 (Colace) 100 mg Q12H PO 06/03/16 17:30 (Ambien) 5 mg HS PRN PO 06/03/16 17:30 06/04/16 21:40 (Narcan Inj) 0.4 mg UNSCH PRN IV 06/03/16 17:30 (Eliquis) 2.5 mg BID@06,18 PO 06/03/16 18:00 Hold 06/05/16 05:34 (Lexapro) 10 mg DAILY PO 06/03/16 17:30 06/05/16 10:13 (Lopressor) 100 mg BID PO 06/03/16 21:00 06/05/16 10:13 (Pravachol) 10 mg DAILY PO 06/03/16 17:30 06/05/16 10:13 (Protonix) 20 mg DAILY PO 06/03/16 17:45 06/05/16 10:12 (Lasix Inj) 40 mg DAILY IV PUSH 06/04/16 09:00 (KCl) 40 meq DAILY PO 06/04/16 09:00 06/05/16 10:13 (Norvasc) 5 mg DAILY PO 06/04/16 11:45 06/05/16 10:13 (Apresoline Inj) 10 mg Q6HR PRN IV PUSH 06/04/16 11:45 (Vasotec Inj) 2.5 mg Q6H PRN IV PUSH 06/04/16 16:45 06/04/16 17:14 Vital Signs / I&O Vital Signs Date Time Temp Pulse Resp B/P Pulse Ox O2 Delivery O2 Flow Rate FiO2 06/05/16 10:23 90 Nasal Cannula 21 06/05/16 08:07 96.1 66 18 199/96 95 06/05/16 01:15 115/81 06/05/16 01:07 98.2 67 18 96/49 93 06/04/16 22:07 98.2 63 18 106/46 94 06/04/16 18:10 92 Nasal Cannula 2.00 06/04/16 16:00 96.5 60 18 194/81 92 06/04/16 13:50 172/60 I/O 06/04/16 06/04/16 06/04/16 06/05/16 06/05/16 06/05/16 07:00 15:00 23:00 07:00 15:00 23:00 Intake Total 240 ml 400 ml 100 ml 0 ml Balance 240 ml 400 ml 100 ml 0 ml Intake Oral 240 ml 400 ml IV Total 0 ml 100 ml 0 ml # Voids 2 3 2 2 # Bowel Movements 1 Physical Exam GENERAL: NAD, Alert and awake SKIN: Warm and dry. HEAD: Atraumatic. Normocephalic. EYES: Pupils equal and round. No scleral icterus. No injection or drainage. ENT: No nasal bleeding or discharge. Mucous membranes pink and moist. NECK: Trachea midline. No JVD. CARDIOVASCULAR: Irregularly irregular RESPIRATORY: No accessory muscle use. Decreased breath sounds on the left side GASTROINTESTINAL: Abdomen soft, non-tender, nondistended. Hepatic and splenic margins not palpable. MUSCULOSKELETAL: Extremities without clubbing, cyanosis, or edema. No obvious deformities. NEUROLOGICAL: Awake and alert. No obvious cranial nerve deficits. Motor grossly within normal limits. Five out of 5 muscle strength in the arms and legs. Normal speech. PSYCHIATRIC: Appropriate mood and affect; insight and judgment normal. Laboratory Laboratory Tests Test 06/05/16 06/05/16 04:56 10:30 Sodium Level 142 MEQ/L Potassium Level 3.7 MEQ/L Chloride Level 110 MEQ/L Carbon Dioxide Level 24.1 MEQ/L Anion Gap 8 MEQ/L Blood Urea Nitrogen 10 MG/DL Creatinine 0.67 MG/DL Estimat Glomerular Filtration 84 ML/MIN Rate Random Glucose 102 MG/DL Calcium Level 8.7 MG/DL Stool C. difficile Toxin (PCR) NEGATIVE Stl C. difficile Toxin PRESUMPTIVE Epiderm 027 NEGATIVE Assessment and Plan Problem List: (1) Diarrhea (2) Pleural effusion (3) Shortness of breath (4) CVA (cerebral vascular accident) (5) Paroxysmal a-fib (6) Valvular disease (7) Hypertension Assessment and Plan 1) Left pleural effusion, per the considering thoracentesis, can stop Eliquis as need for thoracentesis 2) EF 60-65%, moderate /AI, no change from before 3) Pleural effusion secondary to hypertension and possible diastolic dysfunction 4) Afib with controlled heart rates 5) Continue with diuresis, might need halfway diuresis outpt Problem Qualifiers (1) Diarrhea: Qualified Code: R19.7 - Diarrhea, unspecified type Fox Gomez DO Jun 05, 2016 13:06
--- NOTE | 2016-06-05 13:58 | HHI.PR ---
Subjective History of Present Illness PT very upset , apparently her fell in the room today & is taken to ER, she dont know how is he .worrying about him breathing is little better NO CP occ cough , no sputum NO fever or chill 2 small loose BM today No abd pain no dysuria or hematuria offers no other c/o Review of Systems Constitutional Constitutional: Fatigue, Weakness (generalized) Pulmonary Respiratory: Coughing (occasional), Shortness of Breath (mild at rest) GI/Abdomen GI/Abdominal Exam: Diarrhea Musculoskeletal MS: Stiffness (chronic) Psychiatric Psychiatric: Normal Mood, Anxiety Vitals/Results Intake & Output 06/04/16 06/04/16 06/05/16 14:59 22:59 06:59 Intake Total 400 ml 100 ml 0 ml Balance 400 ml 100 ml 0 ml Intake Oral 400 ml IV Total 100 ml 0 ml # Voids 3 2 2 # Bowel Movements 1 Vital Signs Vital Signs Date Time Temp Pulse Resp B/P Pulse Ox O2 Delivery O2 Flow Rate FiO2 06/05/16 12:00 97.0 58 19 183/82 93 06/05/16 10:23 90 Nasal Cannula 21 06/05/16 08:07 96.1 66 18 199/96 95 06/05/16 01:15 115/81 06/05/16 01:07 98.2 67 18 96/49 93 06/04/16 22:07 98.2 63 18 106/46 94 06/04/16 18:10 92 Nasal Cannula 2.00 06/04/16 16:00 96.5 60 18 194/81 92 CBC/BMP: 06/04/16 0428 06/05/16 0456 Lab Results Laboratory Tests Test 06/05/16 06/05/16 04:56 10:30 Sodium Level 142 MEQ/L Potassium Level 3.7 MEQ/L Chloride Level 110 MEQ/L Carbon Dioxide Level 24.1 MEQ/L Anion Gap 8 MEQ/L Blood Urea Nitrogen 10 MG/DL Creatinine 0.67 MG/DL Estimat Glomerular Filtration 84 ML/MIN Rate Random Glucose 102 MG/DL Calcium Level 8.7 MG/DL Stool C. difficile Toxin (PCR) NEGATIVE Stl C. difficile Toxin PRESUMPTIVE Epiderm 027 NEGATIVE Physical Exam General General Appearance: Pale, Anxious Appearance Remarks elderly frail female Eyes Eye Exam: Pupils Equal, Pupils Reactive Ears & Nose Ears & Nose Exam: Nasal Mucosa [place] (pale) Throat Throat Exam: Oral Mucosa [place] & Moist (pale) Neck Neck Exam: Neck Supple, Trachea Midline Pulmonary Resp Exam: No Distress, Decreased Bases, Diminished Breath Sounds Cardiology CV Exam: Normal Sinus Rhythm, Irregular, Murmur (holosystolic, grade 4/6 or greater) Gastrointestinal/Abdomen GI Exam: Soft, Non-Tender, Bowel Sounds Present Integumentary Skin Exam: Warm, Dry, Intact (thin) Extremeties Extremities Exam: No Edema, Pedal Pulses Palpable Neurologic Neuro Exam: Alert, Awake, Oriented, Speech Clear, Moving All Extremities Psychiatric Psych Exam: Appropriate Responses VTE Prophylaxis VTE Remarks Eliquis PUD Prophylasis PUD Prophylaxis: Protonix Assessment/Plan Assessment/Plan 1. Bilateral pleural effusions, left greater than right. ? etiology possible CHF acute on chronic diastolic fluid restriction IV Lasix /kcl Good UOP 2DEcho NL LVF, EF 60 to 65%. mod Mild MR / Mod TR card is f/u Dr Lares's input appreciated , contempating T/C, Eliquis with held 2. Dyspnea. O2 management, aerosol tx secondary to the bilateral pleural effusions. 3. Hypokalemia d/t diarrhea replace & monitor 4. Diarrhea. chronic Dr Anderson's input appreciated collagenous Colitis , stool check for cd iff , if neg start po budesonide 5. Atrial fibrillation s/p Ablation , currently appeared to in SR on BB Off Eliquis for possible T/C cont to monitor 6. Hyperlipidemia. Controlled medical management 7. Gastroesophageal reflux disease. Medical management 8. Depression. Medical management 9. HTN , stable on current meds monitor Discussed with patient in detail/answered all of her questions Favian Kelly MD Jun 05, 2016 13:58
[2016-06-05] MEDS: ACETAMINOPHEN 325 MG TAB PO PRN (16:13)
[2016-06-05] MEDS: ENALAPRILAT 2.5 MG/2 ML VIAL IV PUSH PRN (17:04)
--- NOTE | 2016-06-05 18:13 | HHI.PR ---
Subjective Remarks 86 YO WF with SOB,Pl eff,ch diarrhoea at BS Now pt wants to proceed with TC Has mild sob Objective Vital Signs Vital Signs Date Time Temp Pulse Resp B/P Pulse Ox O2 Delivery O2 Flow Rate FiO2 06/05/16 17:39 158/74 06/05/16 16:00 97.1 71 20 182/83 93 06/05/16 12:00 97.0 58 19 183/82 93 06/05/16 10:23 90 Nasal Cannula 21 06/05/16 08:07 96.1 66 18 199/96 95 06/05/16 01:15 115/81 06/05/16 01:07 98.2 67 18 96/49 93 06/04/16 22:07 98.2 63 18 106/46 94 I/O 06/04/16 06/04/16 06/04/16 06/05/16 06/05/16 06/05/16 07:00 15:00 23:00 07:00 15:00 23:00 Intake Total 240 ml 400 ml 100 ml 0 ml 300 ml Balance 240 ml 400 ml 100 ml 0 ml 300 ml Intake Oral 240 ml 400 ml 300 ml IV Total 0 ml 100 ml 0 ml # Voids 2 3 2 2 2 # Bowel Movements 1 1 Result Diagram: 06/04/16 0428 06/05/16 0456 Objective Remarks GENERAL: Frail elderly female, mild sob SKIN: Warm and dry. HEAD: Normocephalic. EYES: No scleral icterus. No injection or drainage. NECK: Supple, trachea midline. No JVD or lymphadenopathy. CARDIOVASCULAR: Regular rate and rhythm without murmurs, gallops, or rubs. RESPIRATORY: Breath sounds equal bilaterally. No accessory muscle use. Decreased BS at Bases GASTROINTESTINAL: Abdomen soft, non-tender, nondistended. MUSCULOSKELETAL: No cyanosis, or edema. BACK: Nontender without obvious deformity. No CVA tenderness. A/P Assessment and Plan Bilat Pleural effusion, L>R Dysnoea AF Ch Diarrhoea H/O CVA PLAN: DW pt and They agree for TC Hold Eliquis US guided Left theraputic TC Agustín Lares MD Jun 05, 2016 18:13
[2016-06-05] MEDS: ZOLPIDEM TARTRATE 5 MG TAB PO PRN (22:10)
[2016-06-06] VITALS (8 sets, daily range): BP systolic 157–186; BP diastolic 71–89; PULSE 59–69; RESP 16–20; TEMP 95.6–97.5; O2SAT 90–94
[2016-06-06] MEDS: METOPROLOL TARTRATE 100 MG TAB PO SCH ×3 (02:31→22:00)
[2016-06-06] MEDS ORDERED: ALPRAZolam 0.25 MG TAB PO ONE (03:30)
[2016-06-06 05:09] LABS: HEMATOCRIT 37.8 % (35.0-46.0); MEAN CELL VOLUME 90.6 FL (80.0-100.0); MEAN CORPUSCULAR HEMOGLOBIN 30.5 PG (27.0-34.0); MEAN CORPUSCULAR HGB CONC 33.7 % (32.0-36.0); PLATELET COUNT 342 TH/MM3 (150-450); RED BLOOD COUNT 4.17 MIL/MM3 (4.00-5.30); RED CELL DISTRIBUTION WIDTH 16.6 % (11.6-17.2); REVIEW FLAG FINAL; WHITE BLOOD COUNT 8.4 TH/MM3 (4.0-11.0)
[2016-06-06] MEDS: DOCUSATE SODIUM 100 MG CAP PO SCH ×2 (05:19→17:30)
[2016-06-06 05:39] LABS: POTASSIUM 3.6 MEQ/L (3.5-5.1)
[2016-06-06] MEDS: SODIUM CHLORIDE 0.9% FLUSH 5 ML FLUSH FLUSH SCH ×2 (08:07→22:00)
[2016-06-06] MEDS: FUROSEMIDE 40 MG/4 ML VIAL IV PUSH SCH (08:07)
[2016-06-06] MEDS: amLODIPine BESYLATE 5 MG TAB PO SCH (08:07)
--- NOTE | 2016-06-06 09:13 | HHI.GIFU ---
Subjective Remarks alert Nad states stool more formed yesterday..h/o chronic diarrhea w possible collagenous colitis in past.. states no prior knowledge of this Objective Vitals I&O Vital Signs Date Time Temp Pulse Resp B/P Pulse Ox O2 Delivery O2 Flow Rate FiO2 06/06/16 08:00 95.8 63 17 186/84 90 06/06/16 04:00 97.2 68 18 181/86 94 06/06/16 02:00 68 20 180/82 06/06/16 00:00 97.5 69 20 180/89 90 06/05/16 20:00 97.1 59 16 178/76 90 06/05/16 19:05 94 21 06/05/16 17:39 158/74 06/05/16 16:00 97.1 71 20 182/83 93 06/05/16 12:00 97.0 58 19 183/82 93 06/05/16 10:23 90 Nasal Cannula 21 I/O 06/05/16 06/05/16 06/05/16 06/06/16 06/06/16 06/06/16 07:00 15:00 23:00 07:00 15:00 23:00 Intake Total 0 ml 300 ml 240 ml 240 ml Balance 0 ml 300 ml 240 ml 240 ml Intake Oral 300 ml 240 ml 240 ml IV Total 0 ml 0 ml # Voids 2 2 2 2 # Bowel Movements 1 0 1 Laboratory Laboratory Tests Test 06/05/16 06/06/16 10:30 04:25 Stool C. difficile Toxin (PCR) NEGATIVE Stl C. difficile Toxin PRESUMPTIVE Epiderm 027 NEGATIVE White Blood Count 8.4 Red Blood Count 4.17 Hemoglobin 12.7 Hematocrit 37.8 Mean Corpuscular Volume 90.6 Mean Corpuscular Hemoglobin 30.5 Mean Corpuscular Hemoglobin 33.7 Concent Red Cell Distribution Width 16.6 Platelet Count 342 Mean Platelet Volume 7.9 Sodium Level 138 Potassium Level 3.6 Chloride Level 105 Carbon Dioxide Level 21.0 Anion Gap 12 Blood Urea Nitrogen 7 Creatinine 0.64 Estimat Glomerular Filtration 88 Rate Random Glucose 108 Calcium Level 8.9 Date/Time Procedure Status Source Growth 06/04/16 00:45 Cyclospora Exam - Final Complete Stool Stool NO CYCLOSPORA SEEN 06/04/16 00:45 Cryptosporidium Exam - Final Complete Stool Stool NEGATIVE - NO CRYPTOSPORIDIUM ANTIGEN... 06/04/16 00:45 Giardia Antigen (DRE) - Final Complete Stool Stool NEGATIVE - NO GIARDIA ANTIGEN DETECTE... 06/04/16 00:45 Stool Occult Blood (DRE) - Final Complete Stool Stool HEMOCCULT NEGATIVE 06/04/16 00:45 - Final Complete Stool Stool NO ENTERIC PATHOGENS DETECTED BY PCR... 06/04/16 00:45 Cancelled Stool Stool 06/03/16 18:30 Rotavirus Antigen - Final Complete Stool Stool NEGATIVE - ROTAVIRUS ANTIGEN IS ABSEN... 06/03/16 13:40 Urine Culture - Final Complete Urine Catheterized Urine NO GROWTH IN 48 HOURS. Physical Exam HEENdry oral mucosa. NECK: Neck is supple, no JVD, no lymphadenopathy. CHEST: Chest is clear to auscultation and percussion. CARDIAC: Regular rate and rhythm with no murmur gallop or rubs. ABDOMEN: Soft, nondistended, nontender; no hepatosplenomegaly; bowel sounds are present in all four quadrants. EXTREMITIES: No clubbing, cyanosis, or edema. SKIN: Normal; no rash; no jaundice. Assessment and Plan Assessment: (1) Diarrhea Plan This is an 86 year old female admitted with diarrhea which has been chronic since January. Has 2 to 3 loose stools a day. She did notice a stool yesterday that was darker than normal. She is on Eliquis for Afib, had CVA in January. She may need an EGD but Eliquis would need to be held for several days. H&H is stable at 11.9/35.6. She is not interested in a colonoscopy at this time. Stool cultures are pending.CT abdomen and pelvis showed fluid filled colon, small gallstones. Plan -Check stool cultures -Check stools for occult blood -Follow H&H -Continue PPI -May need EGD would need to hold Eliquis several days -Supportive care Further recommendations will follow Patient was seen by Dr. Eid and myself, this consult was written on his behalf. 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
[2016-06-06] MEDS: ESCITALOPRAM OXALATE 10 MG TAB PO SCH (10:40)
[2016-06-06] MEDS: POTASSIUM CHLORIDE 10 MEQ CONTROLLED RELEASE TAB PO SCH (10:40)
[2016-06-06] MEDS: PANTOPRAZOLE SOD 20 MG DELAYED RELEASE TAB PO SCH (10:40)
[2016-06-06] MEDS: PRAVASTATIN SOD 10 MG TAB PO SCH (10:41)
[2016-06-06] MEDS: ENALAPRILAT 2.5 MG/2 ML VIAL IV PUSH PRN (11:47)
[2016-06-06] MEDS ORDERED: cloNIDine HCL 0.1 MG TAB PO PRN (13:15)
[2016-06-06] MEDS: LISINOPRIL 5 MG TAB PO SCH ×2 (14:58→22:00)
--- NOTE | 2016-06-06 16:19 | HHI.PR ---
Subjective Subjective Remarks Alert, up in chair and back to bed with minimal help Pleasantly confused, off and on, including last p.m. Skin color pink Diarrhea improved and son in room (Cheri Zeng) Review of Systems Constitutional Constitutional: Fatigue, Weakness (generalized) Constitutional Remarks 10 point ROS done, still has mild SOB and pleasant confusion (Cheri Zeng) Pulmonary Respiratory: Coughing (improved) (Cheri Zeng) GI/Abdomen GI/Abdominal Exam: Diarrhea (Cheri Zeng) Musculoskeletal MS: Stiffness (chronic) (Cheri Zeng) Psychiatric Psychiatric: Normal Mood, Anxiety (Cheri Zeng) Vitals/Results Intake & Output 06/05/16 06/05/16 06/06/16 15:00 23:00 07:00 Intake Total 300 ml 240 ml 240 ml Balance 300 ml 240 ml 240 ml Intake Oral 300 ml 240 ml 240 ml IV Total 0 ml # Voids 2 2 2 # Bowel Movements 1 0 1 Vital Signs Vital Signs Date Time Temp Pulse Resp B/P Pulse Ox O2 Delivery O2 Flow Rate FiO2 06/06/16 12:00 95.6 59 17 162/72 93 06/06/16 08:00 95.8 63 17 186/84 90 06/06/16 04:00 97.2 68 18 181/86 94 06/06/16 02:00 68 20 180/82 06/06/16 00:00 97.5 69 20 180/89 90 06/05/16 20:00 97.1 59 16 178/76 90 06/05/16 19:05 94 21 06/05/16 17:39 158/74 (Cheri Zeng) CBC/BMP: 06/06/16 0425 06/06/16 0425 Lab Results Laboratory Tests Test 06/06/16 04:25 White Blood Count 8.4 TH/MM3 Red Blood Count 4.17 MIL/MM3 Hemoglobin 12.7 GM/DL Hematocrit 37.8 % Mean Corpuscular Volume 90.6 FL Mean Corpuscular Hemoglobin 30.5 PG Mean Corpuscular Hemoglobin 33.7 % Concent Red Cell Distribution Width 16.6 % Platelet Count 342 TH/MM3 Mean Platelet Volume 7.9 FL Sodium Level 138 MEQ/L Potassium Level 3.6 MEQ/L Chloride Level 105 MEQ/L Carbon Dioxide Level 21.0 MEQ/L Anion Gap 12 MEQ/L Blood Urea Nitrogen 7 MG/DL Creatinine 0.64 MG/DL Estimat Glomerular Filtration 88 ML/MIN Rate Random Glucose 108 MG/DL Calcium Level 8.9 MG/DL (Cheri Zeng M. PROFESSIONAL MODEL) Physical Exam General General Appearance: Pale, Anxious Appearance Remarks Thin frail (Cheri Zeng M. PROFESSIONAL MODEL) Eyes Eye Exam: Pupils Equal, Pupils Reactive (Cheri Zeng M. PROFESSIONAL MODEL) Ears & Nose Ears & Nose Exam: Nasal Mucosa [place] (pale) (Cheri Zeng M. PROFESSIONAL MODEL) Throat Throat Exam: Oral Mucosa [place] & Moist (pale) (Cheri Zeng M. PROFESSIONAL MODEL) Neck Neck Exam: Neck Supple, Trachea Midline (Cheri Zeng M. PROFESSIONAL MODEL) Pulmonary Resp Exam: No Distress, Decreased Bases, Diminished Breath Sounds (Cheri Zeng M. PROFESSIONAL MODEL) Cardiology CV Exam: Normal Sinus Rhythm, Irregular, Murmur (holosystolic, grade 4/6 or greater) (Cheri Zeng M. PROFESSIONAL MODEL) Gastrointestinal/Abdomen GI Exam: Soft, Non-Tender, Bowel Sounds Present (Cheri Zeng M. PROFESSIONAL MODEL) Integumentary Skin Exam: Warm, Dry, Intact (thin) (Cheri Zeng M. PROFESSIONAL MODEL) Extremeties Extremities Exam: No Edema, Pedal Pulses Palpable (Cheri Zeng M. PROFESSIONAL MODEL) Neurologic Neuro Exam: Alert, Awake, Oriented, Speech Clear, Moving All Extremities Neuro Remarks Fair historian, assist with history (Cheri Zeng. PROFESSIONAL MODEL) Psychiatric Psych Exam: Appropriate Responses (Cheri Zeng M. PROFESSIONAL MODEL) PUD Prophylasis PUD Prophylaxis: Protonix (Cheri Zeng M. PROFESSIONAL MODEL) Assessment/Plan Assessment/Plan 1. Bilateral pleural effusions, left greater than right. Plan for thoracentesis tomorrow fluid restriction 2DEcho NL LVF, EF 60 to 65%. mod Mild MR / Mod TR Patient and family understands procedure tomorrow Dr Lares's input appreciated , contempating T/C, Eliquis with held 2. Dyspnea. O2 management, aerosol tx secondary to the bilateral pleural effusions., Thoracentesis in a.m. 3. Hypokalemia d/t diarrhea replace & monitor 4. Diarrhea. chronic Dr Anderson's input appreciated collagenous Colitis , stool check for cd iff , if neg start po budesonide 5. Atrial fibrillation s/p Ablation , currently appeared to in SR on BB Off Eliquis for possible T/C cont to monitor 6. Hyperlipidemia. Controlled medical management 7. Gastroesophageal reflux disease. Medical management 8. Depression. Medical management, anxiety at times. Patient was up at 3 AM, confused. Took Ambien 9. HTN , mild elevation especially with systolic blood pressure increased lisinopril dose, BP this p.m. now 162/72 monitor Patient and family spoke to Dr. Gunter about her insomnia, anxiety and some confusion Xanax added. Suggested to patient and family that she use Xanax first for her sleep aid d/w patient , and son (Cheri Zeng) Assessment/Plan pt is seen & Examined d/w Cheri d/w PT & her at bedside in detail They were both unhappy & wanted to [facility] or be transferred to [place] I had a very long d/w them , answered all of their question , they verbalized understanding & agreed to stay here . clinically improving for possible T/C in am see orders will f/u (Favian Kelly MD) Cheri Zeng Jun 06, 2016 16:19 Favian Kelly MD Jun 06, 2016 17:03
--- NOTE | 2016-06-06 17:53 | PD.CARD.PN ---
Subjective Subjective Remarks No chest pain, shortness of breath only with moving around the room Diarrhea decreased Objective Medications Current Medications Medications (Trade) Dose Ordered Sig/Luis A Route Start Time Stop Time Status Last Admin (NS Flush) 2 ml UNSCH PRN FLUSH 06/03/16 17:30 (NS Flush) 2 ml BID FLUSH 06/03/16 21:00 06/06/16 08:07 (Tylenol) 650 mg Q4H PRN PO 06/03/16 17:30 (Zofran Inj) 4 mg Q6H PRN IVP 06/03/16 17:30 (Colace) 100 mg Q12H PO 06/03/16 17:30 (Ambien) 5 mg HS PRN PO 06/03/16 17:30 06/05/16 22:10 (Narcan Inj) 0.4 mg UNSCH PRN IV 06/03/16 17:30 (Eliquis) 2.5 mg BID@06,18 PO 06/03/16 18:00 Hold 06/05/16 05:34 (Lexapro) 10 mg DAILY PO 06/03/16 17:30 06/06/16 10:40 (Lopressor) 100 mg BID PO 06/03/16 21:00 06/06/16 08:07 (Pravachol) 10 mg DAILY PO 06/03/16 17:30 06/06/16 10:41 (Protonix) 20 mg DAILY PO 06/03/16 17:45 06/06/16 10:40 (Lasix Inj) 40 mg DAILY IV PUSH 06/04/16 09:00 (KCl) 40 meq DAILY PO 06/04/16 09:00 06/06/16 10:40 (Norvasc) 5 mg DAILY PO 06/04/16 11:45 06/06/16 08:07 (Apresoline Inj) 10 mg Q6HR PRN IV PUSH 06/04/16 11:45 (Vasotec Inj) 2.5 mg Q6H PRN IV PUSH 06/04/16 16:45 06/06/16 11:47 (Tylenol) 650 mg Q6H PRN PO 06/05/16 13:45 06/05/16 16:13 (Prinivil) 5 mg Q12HR PO 06/06/16 13:30 06/06/16 14:58 (Catapres) 0.1 mg Q6H PRN PO 06/06/16 13:15 06/06/16 17:36 (Xanax) 0.25 mg Q8H PRN PO 06/06/16 13:15 Vital Signs / I&O Vital Signs Date Time Temp Pulse Resp B/P Pulse Ox O2 Delivery O2 Flow Rate FiO2 06/06/16 17:13 93 21 06/06/16 12:00 95.6 59 17 162/72 93 06/06/16 08:00 95.8 63 17 186/84 90 06/06/16 04:00 97.2 68 18 181/86 94 06/06/16 02:00 68 20 180/82 06/06/16 00:00 97.5 69 20 180/89 90 06/05/16 20:00 97.1 59 16 178/76 90 06/05/16 19:05 94 21 I/O 06/05/16 06/05/16 06/05/16 06/06/16 06/06/16 06/06/16 07:00 15:00 23:00 07:00 15:00 23:00 Intake Total 0 ml 300 ml 240 ml 240 ml 0 ml Balance 0 ml 300 ml 240 ml 240 ml 0 ml Intake Oral 300 ml 240 ml 240 ml 0 ml IV Total 0 ml 0 ml # Voids 2 2 2 2 3 # Bowel Movements 1 0 1 0 Physical Exam GENERAL: NAD, Alert and awake SKIN: Warm and dry. HEAD: Atraumatic. Normocephalic. EYES: Pupils equal and round. No scleral icterus. No injection or drainage. ENT: No nasal bleeding or discharge. Mucous membranes pink and moist. NECK: Trachea midline. No JVD. CARDIOVASCULAR: Irregularly irregular RESPIRATORY: No accessory muscle use. Decreased breath sounds on the left side GASTROINTESTINAL: Abdomen soft, non-tender, nondistended. Hepatic and splenic margins not palpable. MUSCULOSKELETAL: Extremities without clubbing, cyanosis, or edema. No obvious deformities. NEUROLOGICAL: Awake and alert. No obvious cranial nerve deficits. Motor grossly within normal limits. Five out of 5 muscle strength in the arms and legs. Normal speech. PSYCHIATRIC: Appropriate mood and affect; insight and judgment normal. Laboratory Laboratory Tests Test 06/06/16 04:25 White Blood Count 8.4 TH/MM3 Red Blood Count 4.17 MIL/MM3 Hemoglobin 12.7 GM/DL Hematocrit 37.8 % Mean Corpuscular Volume 90.6 FL Mean Corpuscular Hemoglobin 30.5 PG Mean Corpuscular Hemoglobin 33.7 % Concent Red Cell Distribution Width 16.6 % Platelet Count 342 TH/MM3 Mean Platelet Volume 7.9 FL Sodium Level 138 MEQ/L Potassium Level 3.6 MEQ/L Chloride Level 105 MEQ/L Carbon Dioxide Level 21.0 MEQ/L Anion Gap 12 MEQ/L Blood Urea Nitrogen 7 MG/DL Creatinine 0.64 MG/DL Estimat Glomerular Filtration 88 ML/MIN Rate Random Glucose 108 MG/DL Calcium Level 8.9 MG/DL Assessment and Plan Problem List: (1) Diarrhea (2) Pleural effusion (3) Shortness of breath (4) CVA (cerebral vascular accident) (5) Paroxysmal a-fib (6) Valvular disease (7) Hypertension Assessment and Plan 1) Left pleural effusion, Eliquis stopped for thoracentesis 2) EF 60-65%, moderate /AI, no change from before 3) Pleural effusion secondary to hypertension and possible diastolic dysfunction 4) Afib with controlled heart rates 5) Blood pressure elevated, Lisinopril added, if still elevated then increase Norvasc to 10mg daily Problem Qualifiers (1) Diarrhea: Qualified Code: R19.7 - Diarrhea, unspecified type Fox Gomez DO Jun 06, 2016 17:52
--- NOTE | 2016-06-06 21:34 | HHI.PR ---
Subjective Remarks 86 YO WF with SOB,Pl eff,ch diarrhoea at BS Now pt wants to proceed with TC Has mild sob Was confused last night Son and at BS Objective Vital Signs Vital Signs Date Time Temp Pulse Resp B/P Pulse Ox O2 Delivery O2 Flow Rate FiO2 06/06/16 17:13 93 21 06/06/16 16:00 95.6 59 17 162/72 93 06/06/16 12:00 95.6 59 17 162/72 93 06/06/16 08:00 95.8 63 17 186/84 90 06/06/16 04:00 97.2 68 18 181/86 94 06/06/16 02:00 68 20 180/82 06/06/16 00:00 97.5 69 20 180/89 90 I/O 06/05/16 06/05/16 06/05/16 06/06/16 06/06/16 06/06/16 07:00 15:00 23:00 07:00 15:00 23:00 Intake Total 0 ml 300 ml 240 ml 240 ml 0 ml Balance 0 ml 300 ml 240 ml 240 ml 0 ml Intake Oral 300 ml 240 ml 240 ml 0 ml IV Total 0 ml 0 ml # Voids 2 2 2 2 3 # Bowel Movements 1 0 1 0 Result Diagram: 06/06/16 0425 06/06/16 0425 Objective Remarks GENERAL: Frail elderly female, mild sob SKIN: Warm and dry. HEAD: Normocephalic. EYES: No scleral icterus. No injection or drainage. NECK: Supple, trachea midline. No JVD or lymphadenopathy. CARDIOVASCULAR: Regular rate and rhythm without murmurs, gallops, or rubs. RESPIRATORY: Breath sounds equal bilaterally. No accessory muscle use. Decreased BS at Bases GASTROINTESTINAL: Abdomen soft, non-tender, nondistended. MUSCULOSKELETAL: No cyanosis, or edema. BACK: Nontender without obvious deformity. No CVA tenderness. A/P Assessment and Plan Bilat Pleural effusion, L>R Dysnoea AF Ch Diarrhoea H/O CVA PLAN: DW pt and They agree for TC Hold Eliquis US guided Left theraputic TC Agustín Lares MD Jun 06, 2016 21:34
[2016-06-06] MEDS: ALPRAZolam 0.25 MG TAB PO PRN (22:00)
[2016-06-07] VITALS (9 sets, daily range): BP systolic 138–195; BP diastolic 65–104; PULSE 51–70; RESP 16–20; TEMP 95.4–97.8; O2SAT 93–98
[2016-06-07] MEDS: DOCUSATE SODIUM 100 MG CAP PO SCH ×2 (05:30→07:45)
[2016-06-07 05:40] LABS: INTERNATIONAL NORMALIZED RATIO 1.2 RATIO; PROTHROMBIN TIME - PATIENT 13.3 SEC (9.8-11.6)
--- NOTE | 2016-06-07 06:30 | RADRPT ---
EXAM DATE/TIME: 06/07/2016 05:26 [facility] COMPARISON: CHEST SINGLE AP, June 03, 2016, 13:49. INDICATIONS : F/U pleural effusion MEDICAL HISTORY : Cardiovascular disease. Cerebrovascular disease. Hypertension SURGICAL HISTORY : Hysterectomy. ENCOUNTER: Subsequent ACUITY: 3 days PAIN SCORE: 10/10 LOCATION: Bilateral chest FINDINGS: Single AP view of the chest. Persistent cardiac silhouette enlargement. Slight decrease in size of le ft pleural effusion. Decrease in bilateral lower lung atelectasis versus consolidation. CONCLUSION: Decrease in bilateral atelectasis versus consolidation at the bases. Decrease in pleural effusions. John Mancuso MD on June 07, 2016 at 6:27 Board Certified Radiologist. This report was verified electronically.
[2016-06-07] MEDS: METOPROLOL TARTRATE 100 MG TAB PO SCH ×2 (07:43→21:29)
[2016-06-07] MEDS: PRAVASTATIN SOD 10 MG TAB PO SCH (07:44)
[2016-06-07] MEDS: amLODIPine BESYLATE 5 MG TAB PO SCH (07:44)
[2016-06-07] MEDS: PANTOPRAZOLE SOD 20 MG DELAYED RELEASE TAB PO SCH (07:44)
[2016-06-07] MEDS: ESCITALOPRAM OXALATE 10 MG TAB PO SCH (07:44)
[2016-06-07] MEDS: LISINOPRIL 5 MG TAB PO SCH ×2 (07:44→21:29)
[2016-06-07] MEDS: FUROSEMIDE 40 MG/4 ML VIAL IV PUSH SCH (07:45)
[2016-06-07] MEDS: SODIUM CHLORIDE 0.9% FLUSH 5 ML FLUSH FLUSH SCH ×2 (07:45→21:00)
[2016-06-07] MEDS: POTASSIUM CHLORIDE 10 MEQ CONTROLLED RELEASE TAB PO SCH (07:45)
--- NOTE | 2016-06-07 08:58 | HHI.GIFU ---
Subjective Remarks Alert ... going for pleural effusion tap...only small amount loose stool yesterday Objective Vitals I&O Vital Signs Date Time Temp Pulse Resp B/P Pulse Ox O2 Delivery O2 Flow Rate FiO2 06/07/16 00:00 97.6 70 18 154/68 93 06/06/16 20:00 97.1 61 16 157/71 92 06/06/16 17:13 93 21 06/06/16 16:00 95.6 59 17 162/72 93 06/06/16 12:00 95.6 59 17 162/72 93 I/O 06/06/16 06/06/16 06/06/16 06/07/16 06/07/16 06/07/16 07:00 15:00 23:00 07:00 15:00 23:00 Intake Total 240 ml 0 ml 240 ml 120 ml Balance 240 ml 0 ml 240 ml 120 ml Intake Oral 240 ml 0 ml 240 ml 120 ml IV Total 0 ml 0 ml 0 ml # Voids 2 3 2 3 # Bowel Movements 1 0 1 0 Laboratory Laboratory Tests Test 06/07/16 04:48 Prothrombin Time 13.3 Prothromb Time International 1.2 Ratio Date/Time Procedure Status Source Growth 06/04/16 00:45 Cyclospora Exam - Final Complete Stool Stool NO CYCLOSPORA SEEN 06/04/16 00:45 Cryptosporidium Exam - Final Complete Stool Stool NEGATIVE - NO CRYPTOSPORIDIUM ANTIGEN... 06/04/16 00:45 Giardia Antigen (DRE) - Final Complete Stool Stool NEGATIVE - NO GIARDIA ANTIGEN DETECTE... 06/04/16 00:45 Stool Occult Blood (DRE) - Final Complete Stool Stool HEMOCCULT NEGATIVE 06/04/16 00:45 - Final Complete Stool Stool NO ENTERIC PATHOGENS DETECTED BY PCR... 06/04/16 00:45 Cancelled Stool Stool 06/03/16 18:30 Rotavirus Antigen - Final Complete Stool Stool NEGATIVE - ROTAVIRUS ANTIGEN IS ABSEN... 06/03/16 13:40 Urine Culture - Final Complete Urine Catheterized Urine NO GROWTH IN 48 HOURS. Imaging Last Impressions Chest X-Ray 06/07/16 0600 Signed Impressions: Service Date/Time: May 05:26 - CONCLUSION: Decrease in bilateral atelectasis versus consolidation at the bases. Decrease in pleural effusions. John Mancuso MD CT Angiography 06/03/16 1416 Signed Impressions: Service Date/Time: Friday, June 03, 2016 15:17 - CONCLUSION: 1. No pulmonary embolus. 2. Moderate right and moderate to large left pleural effusions with basilar consolidation. 3. Mild left atrial margin. Possible tricuspid regurg. 4. Coronary artery calcification. Jerry Mcdonough MD Abdomen/Pelvis CT 06/03/16 0000 Signed Impressions: Service Date/Time: Friday, June 03, 2016 20:20 - CONCLUSION: 1. Nonspecific fluid-filled colon. No obstruction or perceptible inflammatory changes. 2. Small stones in the gallbladder without evidence of conus cystitis or biliary obstruction. 3. Atherosclerotic and tortuous abdominal aorta. No aneurysm. 4. Bilateral pleural effusions. 5. Small bubble of gas in the urinary bladder; was the bladder recently catheterized? Jerry Mcdonough MD Physical Exam HEENT dry oral mucosa. NECK: Neck is supple, no JVD, no lymphadenopathy. CHEST: decreased breath sounds at bases CARDIAC: Regular rate and rhythm with no murmur gallop or rubs. ABDOMEN: Soft, nondistended, nontender; no hepatosplenomegaly; bowel sounds are present in all four quadrants. EXTREMITIES: No clubbing, cyanosis, or edema. SKIN: Normal; no rash; no jaundice. Assessment and Plan Assessment: (1) Diarrhea Plan The pt has a previous h/o microscopic colitis per colon bxs in past.....pt did not follow up w Dr Monge .....have ordered budesonide 9 mg since it is nonformulary...pt will need rx after dc as well and then follow up w Dr Monge discussed w pt. Problem Qualifiers (1) Diarrhea: Qualified Code: R19.7 - Diarrhea, unspecified type Juan M Chase MD Jun 07, 2016 08:58
--- NOTE | 2016-06-07 10:08 | RADRPT ---
EXAM DATE/TIME: 06/07/2016 09:48 [facility] COMPARISON: No previous studies available for comparison. INDICATIONS : S/p left thoracentesis. MEDICAL HISTORY : atrial fibrillation SURGICAL HISTORY : thoracentesis at another hospital ENCOUNTER: Initial ACUITY: 1 day PAIN SCORE: 0/10 LOCATION: Bilateral chest FINDINGS: A single frontal expiratory view of the chest was performed. The lungs are symmetrically aerated and clear. No evidence of pneumothorax. Mediastinal structures are in the midline. The cardio-mediastinal contours and bronchopulmonary markings are unremarkable for an expiratory exam . Osseous structures are intact. CONCLUSION: There is no pneumothorax following left thoracentesis .Minimal bibasilar consolidativ e changes are present. Ayden Gutierres MD FACR on June 07, 2016 at 10:05 Board Certified Radiologist. This report was verified electronically.
--- NOTE | 2016-06-07 10:39 | HHI.PR ---
Subjective History of Present Illness feels better s/p T/C today 600 cc fluid was removed breathing is much better NO CP occ cough , no sputum NO fever or chill 2 loose BM today No abd pain no dysuria or hematuria offers no other c/o is at bedside Review of Systems Constitutional Constitutional: Fatigue, Weakness (generalized) Pulmonary Respiratory: Coughing (improved) GI/Abdomen GI/Abdominal Exam: Diarrhea Musculoskeletal MS: Stiffness (chronic) Psychiatric Psychiatric: Normal Mood, Anxiety Vitals/Results Intake & Output 06/06/16 06/06/16 06/07/16 15:00 23:00 07:00 Intake Total 0 ml 240 ml 120 ml Balance 0 ml 240 ml 120 ml Intake Oral 0 ml 240 ml 120 ml IV Total 0 ml 0 ml # Voids 3 2 3 # Bowel Movements 0 1 0 Vital Signs Vital Signs Date Time Temp Pulse Resp B/P Pulse Ox O2 Delivery O2 Flow Rate FiO2 06/07/16 10:15 97.8 52 16 158/73 97 06/07/16 10:00 96.9 51 16 138/67 97 06/07/16 09:15 97.8 55 20 160/80 95 06/07/16 08:00 95.8 61 19 195/104 96 06/07/16 00:00 97.6 70 18 154/68 93 06/06/16 20:00 97.1 61 16 157/71 92 06/06/16 17:13 93 21 06/06/16 16:00 95.6 59 17 162/72 93 06/06/16 12:00 95.6 59 17 162/72 93 CBC/BMP: 06/06/16 0425 06/06/16 0425 Lab Results Laboratory Tests Test 06/07/16 04:48 Prothrombin Time 13.3 SEC Prothromb Time International 1.2 RATIO Ratio Physical Exam General General Appearance: No Acute Distress, Comfortable, Pale, Anxious Appearance Remarks elderly frail female Eyes Eye Exam: Pupils Equal, Pupils Reactive, Sclera White, Extraocular Movement Intact Ears & Nose Ears & Nose Exam: Nasal Mucosa [place] (pale) Throat Throat Exam: Oral Mucosa [place] & Moist (pale) Neck Neck Exam: Neck Supple, Trachea Midline Pulmonary Resp Exam: Clear Bilaterally, Breath Sounds Equal, No Distress Cardiology CV Exam: Normal Sinus Rhythm, Irregular, Murmur (holosystolic, grade 4/6 or greater) Gastrointestinal/Abdomen GI Exam: Soft, Non-Tender, Bowel Sounds Present Integumentary Skin Exam: Warm, Dry, Intact (thin) Extremeties Extremities Exam: No Edema, Pedal Pulses Palpable Neurologic Neuro Exam: Alert, Awake, Oriented, Speech Clear, Moving All Extremities Psychiatric Psych Exam: Appropriate Responses VTE Prophylaxis VTE Remarks Eliquis PUD Prophylasis PUD Prophylaxis: Protonix Assessment/Plan Assessment/Plan Assessment/Plan 1. Bilateral pleural effusions, left greater than right. s/p thoracentesis , 600 cc fluid removed PF sent for analysis post procedure CXR Neg for PTx/improved effusion cont fluid restriction 2DEcho NL LVF, EF 60 to 65%. mod Mild MR / Mod TR 2. s/p Hypokalemia d/t diarrhea replace & monitor 3. ch Diarrhea. chronic Dr Anderson's input appreciated collagenous Colitis , stool check for cd iff , if neg po budesonide as out pt basis 4. Hx Atrial fibrillation s/p Ablation , currently in SR on BB Resume Eliquis cont to monitor 5. Hyperlipidemia. Controlled medical management 6 Gastroesophageal reflux disease. Medical management 7. Depression. Medical management, anxiety at times. Patient was up at 3 AM, confused. Took Ambien 8. HTN , better cont TYRONE-I/ CCB/BB Xanax prn PT eval & tx ss for d/xc planning / will f/u Favian Kelly MD Jun 07, 2016 10:39
--- NOTE | 2016-06-07 11:17 | RADRPT ---
EXAM DATE/TIME: 06/07/2016 09:11 [facility] COMPARISON: No previous studies available for comparison. INDICATIONS : Left pleural effusion. MEDICAL HISTORY : Hypertension. Hypercholesterolemia. Gastroesophageal reflux disease. CVA. TIA. Afib. Alzheimer's d isease. cardiovascular problems. hiatel hernia. SURGICAL HISTORY : section. Hysterectomy. Tonsillectomy. Hernia repair. Cataracts. ENCOUNTER: Initial ACUITY: 2 days PAIN SCORE: 0/10 LOCATION: Left chest FLUID: Total volume of 600 cc of clear, yellow fluid was removed. Fluid was discarded. Thoracentesis was therapeutic only. TECHNIQUE: 1. Ultrasound guidance for thoracentesis. 2. Thoracentesis. The risks, benefits, and alternatives to ultrasound guided thoracentesis were explained to the patien t in lay simple terms, including the risk of bleeding and infection. Written and verbal informed con sent was obtained. Appropriate area for thoracentesis was marked under ultrasound guidance with the patient in the uprig ht position. Overlying skin was prepped and draped in the usual sterile fashion and with local anest hetic, a dermatotomy was made with an 11 blade scalpel. A 6 Hungarian thoracentesis catheter was placed in the pleural space and fluid was removed. Catheter was then removed and a sterile dressing applie d. There were no immediate complications. The patient tolerated the procedure well and the left the ultrasound suite in stable condition. Chest radiograph is to be obtained. CONCLUSION: Uncomplicated ultrasound guided thoracentesis. Ayden Gutierres MD FACR on June 07, 2016 at 11:15 Board Certified Radiologist. This report was verified electronically.
[2016-06-07 12:26] LABS: TOTAL PROTEIN,PLEURAL FLUID 1.7 GM/DL
--- NOTE | 2016-06-07 14:06 | PD.CARD.PN ---
Subjective Subjective Remarks No chest pain, decreased shortness of breath post thoracentesis Objective Medications Current Medications Medications (Trade) Dose Ordered Sig/Luis A Route Start Time Stop Time Status Last Admin (NS Flush) 2 ml UNSCH PRN FLUSH 06/03/16 17:30 (NS Flush) 2 ml BID FLUSH 06/03/16 21:00 06/07/16 07:45 (Tylenol) 650 mg Q4H PRN PO 06/03/16 17:30 (Zofran Inj) 4 mg Q6H PRN IVP 06/03/16 17:30 (Colace) 100 mg Q12H PO 06/03/16 17:30 (Ambien) 5 mg HS PRN PO 06/03/16 17:30 06/05/16 22:10 (Narcan Inj) 0.4 mg UNSCH PRN IV 06/03/16 17:30 (Eliquis) 2.5 mg BID@06,18 PO 06/03/16 18:00 Hold 06/05/16 05:34 (Lexapro) 10 mg DAILY PO 06/03/16 17:30 06/07/16 07:44 (Lopressor) 100 mg BID PO 06/03/16 21:00 06/07/16 07:43 (Pravachol) 10 mg DAILY PO 06/03/16 17:30 06/07/16 07:44 (Protonix) 20 mg DAILY PO 06/03/16 17:45 06/07/16 07:44 (Lasix Inj) 40 mg DAILY IV PUSH 06/04/16 09:00 (KCl) 40 meq DAILY PO 06/04/16 09:00 06/07/16 07:45 (Norvasc) 5 mg DAILY PO 06/04/16 11:45 06/07/16 07:44 (Apresoline Inj) 10 mg Q6HR PRN IV PUSH 06/04/16 11:45 (Vasotec Inj) 2.5 mg Q6H PRN IV PUSH 06/04/16 16:45 06/06/16 11:47 (Tylenol) 650 mg Q6H PRN PO 06/05/16 13:45 06/05/16 16:13 (Prinivil) 5 mg Q12HR PO 06/06/16 13:30 06/07/16 07:44 (Catapres) 0.1 mg Q6H PRN PO 06/06/16 13:15 06/06/16 17:36 (Xanax) 0.25 mg Q8H PRN PO 06/06/16 13:15 06/06/16 22:00 Vital Signs / I&O Vital Signs Date Time Temp Pulse Resp B/P Pulse Ox O2 Delivery O2 Flow Rate FiO2 06/07/16 12:00 95.9 54 16 166/75 95 06/07/16 10:15 97.8 52 16 158/73 97 06/07/16 10:00 96.9 51 16 138/67 97 06/07/16 09:15 97.8 55 20 160/80 95 06/07/16 08:00 95.8 61 19 195/104 96 06/07/16 00:00 97.6 70 18 154/68 93 06/06/16 20:00 97.1 61 16 157/71 92 06/06/16 17:13 93 21 06/06/16 16:00 95.6 59 17 162/72 93 I/O 06/06/16 06/06/16 06/06/16 06/07/16 06/07/16 06/07/16 07:00 15:00 23:00 07:00 15:00 23:00 Intake Total 240 ml 0 ml 240 ml 120 ml Balance 240 ml 0 ml 240 ml 120 ml Intake Oral 240 ml 0 ml 240 ml 120 ml IV Total 0 ml 0 ml 0 ml # Voids 2 3 2 3 # Bowel Movements 1 0 1 0 Physical Exam GENERAL: NAD, Alert and awake SKIN: Warm and dry. HEAD: Atraumatic. Normocephalic. EYES: Pupils equal and round. No scleral icterus. No injection or drainage. ENT: No nasal bleeding or discharge. Mucous membranes pink and moist. NECK: Trachea midline. No JVD. CARDIOVASCULAR: Irregularly irregular RESPIRATORY: No accessory muscle use. Diminished breath sounds but clear GASTROINTESTINAL: Abdomen soft, non-tender, nondistended. Hepatic and splenic margins not palpable. MUSCULOSKELETAL: Extremities without clubbing, cyanosis, or edema. No obvious deformities. NEUROLOGICAL: Awake and alert. No obvious cranial nerve deficits. Motor grossly within normal limits. Five out of 5 muscle strength in the arms and legs. Normal speech. PSYCHIATRIC: Appropriate mood and affect; insight and judgment normal. Laboratory Laboratory Tests Test 06/07/16 06/07/16 04:48 09:50 Prothrombin Time 13.3 SEC Prothromb Time International 1.2 RATIO Ratio Pleural Fluid Total Protein 1.7 GM/DL Pleural Fluid LDH 80 U/L Assessment and Plan Problem List: (1) Diarrhea (2) Pleural effusion (3) Shortness of breath (4) CVA (cerebral vascular accident) (5) Paroxysmal a-fib (6) Valvular disease (7) Hypertension Assessment and Plan 1) Left pleural effusion, Eliquis stopped for thoracentesis, can be restarted when safely possible 2) EF 60-65%, moderate /AI, no change from before 3) Pleural effusion secondary to hypertension and possible diastolic dysfunction 4) Afib with controlled heart rates 5) Blood pressure elevated, Lisinopril added, will increase Norvasc Problem Qualifiers (1) Diarrhea: Qualified Code: R19.7 - Diarrhea, unspecified type Fox Gomez DO Jun 07, 2016 14:06
[2016-06-07] MEDS ORDERED: amLODIPine BESYLATE 5 MG TAB PO ONE (14:15)
--- NOTE | 2016-06-07 16:59 | HHI.PR ---
Subjective Remarks 86 YO WF with SOB,Pl eff,ch diarrhoea at BS Now pt wants to proceed with TC Has mild sob at BS had TC 600 cc fluid removed Objective Vital Signs Vital Signs Date Time Temp Pulse Resp B/P Pulse Ox O2 Delivery O2 Flow Rate FiO2 06/07/16 16:00 95.4 53 16 148/67 97 06/07/16 13:40 93 21 06/07/16 12:00 95.9 54 16 166/75 95 06/07/16 10:15 97.8 52 16 158/73 97 06/07/16 10:00 96.9 51 16 138/67 97 06/07/16 09:15 97.8 55 20 160/80 95 06/07/16 08:00 95.8 61 19 195/104 96 06/07/16 00:00 97.6 70 18 154/68 93 06/06/16 20:00 97.1 61 16 157/71 92 06/06/16 17:13 93 21 I/O 06/06/16 06/06/16 06/06/16 06/07/16 06/07/16 06/07/16 07:00 15:00 23:00 07:00 15:00 23:00 Intake Total 240 ml 0 ml 240 ml 120 ml 240 ml Balance 240 ml 0 ml 240 ml 120 ml 240 ml Intake Oral 240 ml 0 ml 240 ml 120 ml 240 ml IV Total 0 ml 0 ml 0 ml # Voids 2 3 2 3 4 # Bowel Movements 1 0 1 0 1 Result Diagram: 06/06/16 0425 06/06/16 0425 Objective Remarks GENERAL: Frail elderly female, mild sob SKIN: Warm and dry. HEAD: Normocephalic. EYES: No scleral icterus. No injection or drainage. NECK: Supple, trachea midline. No JVD or lymphadenopathy. CARDIOVASCULAR: Regular rate and rhythm without murmurs, gallops, or rubs. RESPIRATORY: Breath sounds equal bilaterally. No accessory muscle use. Decreased BS at Bases GASTROINTESTINAL: Abdomen soft, non-tender, nondistended. MUSCULOSKELETAL: No cyanosis, or edema. BACK: Nontender without obvious deformity. No CVA tenderness. A/P Assessment and Plan Bilat Pleural effusion, L>R Dysnoea AF Ch Diarrhoea H/O CVA PLAN: DW pt and Stable on RA DC plans for home Agustín Lares MD Jun 07, 2016 16:59
[2016-06-07] MEDS: ACETAMINOPHEN 325 MG TAB PO PRN (21:29)
[2016-06-07] MEDS: ALPRAZolam 0.25 MG TAB PO PRN (22:42)
[2016-06-08] VITALS: BP 147/68; PULSE 63; RESP 17; TEMP 96.2; O2SAT 95
[2016-06-08] MEDS: DOCUSATE SODIUM 100 MG CAP PO SCH ×2 (05:30→07:55)
[2016-06-08] MEDS: POTASSIUM CHLORIDE 10 MEQ CONTROLLED RELEASE TAB PO SCH (07:53)
[2016-06-08] MEDS: PRAVASTATIN SOD 10 MG TAB PO SCH (07:53)
[2016-06-08] MEDS: LISINOPRIL 5 MG TAB PO SCH (07:54)
[2016-06-08] MEDS: PANTOPRAZOLE SOD 20 MG DELAYED RELEASE TAB PO SCH (07:54)
[2016-06-08] MEDS: ESCITALOPRAM OXALATE 10 MG TAB PO SCH (07:54)
[2016-06-08] MEDS: FUROSEMIDE 40 MG/4 ML VIAL IV PUSH SCH (07:54)
[2016-06-08] MEDS: SODIUM CHLORIDE 0.9% FLUSH 5 ML FLUSH FLUSH SCH (07:55)
[2016-06-08 08:00] VITALS: BP 170/80; PULSE 60; RESP 20; TEMP 95.8; O2SAT 92
[2016-06-08 08:11] VITALS: O2SAT 96
[2016-06-08] MEDS ORDERED: APIXABAN 2.5 MG TABLET PO SCH (09:00)
[2016-06-08] MEDS: METOPROLOL TARTRATE 100 MG TAB PO SCH (09:00)
--- NOTE | 2016-06-08 09:54 | PD.CARD.PN ---
Subjective Subjective Remarks No chest pain, no shortness of breath, doing well off oxygen Objective Medications Current Medications Medications (Trade) Dose Ordered Sig/Luis A Route Start Time Stop Time Status Last Admin (NS Flush) 2 ml UNSCH PRN FLUSH 06/03/16 17:30 (NS Flush) 2 ml BID FLUSH 06/03/16 21:00 06/08/16 07:55 (Tylenol) 650 mg Q4H PRN PO 06/03/16 17:30 (Zofran Inj) 4 mg Q6H PRN IVP 06/03/16 17:30 (Colace) 100 mg Q12H PO 06/03/16 17:30 (Ambien) 5 mg HS PRN PO 06/03/16 17:30 06/05/16 22:10 (Narcan Inj) 0.4 mg UNSCH PRN IV 06/03/16 17:30 (Lexapro) 10 mg DAILY PO 06/03/16 17:30 06/08/16 07:54 (Lopressor) 100 mg BID PO 06/03/16 21:00 06/07/16 21:29 (Pravachol) 10 mg DAILY PO 06/03/16 17:30 06/08/16 07:53 (Protonix) 20 mg DAILY PO 06/03/16 17:45 06/08/16 07:54 (Lasix Inj) 40 mg DAILY IV PUSH 06/04/16 09:00 (KCl) 40 meq DAILY PO 06/04/16 09:00 06/08/16 07:53 (Apresoline Inj) 10 mg Q6HR PRN IV PUSH 06/04/16 11:45 (Vasotec Inj) 2.5 mg Q6H PRN IV PUSH 06/04/16 16:45 06/06/16 11:47 (Tylenol) 650 mg Q6H PRN PO 06/05/16 13:45 06/07/16 21:29 (Prinivil) 5 mg Q12HR PO 06/06/16 13:30 06/08/16 07:54 (Catapres) 0.1 mg Q6H PRN PO 06/06/16 13:15 06/06/16 17:36 (Xanax) 0.25 mg Q8H PRN PO 06/06/16 13:15 06/07/16 22:42 (Norvasc) 10 mg DAILY PO 06/08/16 09:00 06/08/16 07:54 (Eliquis) 2.5 mg BID PO 06/08/16 09:00 06/08/16 07:54 Vital Signs / I&O Vital Signs Date Time Temp Pulse Resp B/P Pulse Ox O2 Delivery O2 Flow Rate FiO2 06/08/16 08:11 96 21 06/08/16 00:00 96.2 63 17 147/68 95 06/07/16 20:00 96.0 60 17 143/65 98 06/07/16 16:00 95.4 53 16 148/67 97 06/07/16 13:40 93 21 06/07/16 12:00 95.9 54 16 166/75 95 06/07/16 10:15 97.8 52 16 158/73 97 06/07/16 10:00 96.9 51 16 138/67 97 I/O 06/07/16 06/07/16 06/07/16 06/08/16 06/08/16 06/08/16 07:00 15:00 23:00 07:00 15:00 23:00 Intake Total 120 ml 240 ml 240 ml 240 ml Balance 120 ml 240 ml 240 ml 240 ml Intake Oral 120 ml 240 ml 240 ml 240 ml IV Total 0 ml 0 ml # Voids 3 4 2 2 # Bowel Movements 0 1 1 Physical Exam GENERAL: NAD, Alert and awake SKIN: Warm and dry. HEAD: Atraumatic. Normocephalic. EYES: Pupils equal and round. No scleral icterus. No injection or drainage. ENT: No nasal bleeding or discharge. Mucous membranes pink and moist. NECK: Trachea midline. No JVD. CARDIOVASCULAR: Irregularly irregular RESPIRATORY: No accessory muscle use. Clear to auscultation GASTROINTESTINAL: Abdomen soft, non-tender, nondistended. Hepatic and splenic margins not palpable. MUSCULOSKELETAL: Extremities without clubbing, cyanosis, or edema. No obvious deformities. NEUROLOGICAL: Awake and alert. No obvious cranial nerve deficits. Motor grossly within normal limits. Five out of 5 muscle strength in the arms and legs. Normal speech. PSYCHIATRIC: Appropriate mood and affect; insight and judgment normal. Assessment and Plan Problem List: (1) Diarrhea (2) Pleural effusion (3) Shortness of breath (4) CVA (cerebral vascular accident) (5) Paroxysmal a-fib (6) Valvular disease (7) Hypertension Assessment and Plan 1) Left pleural effusion s/p thoracentesis 2) EF 60-65%, moderate /AI, no change from before 3) Pleural effusion secondary to hypertension and possible diastolic dysfunction 4) Afib with controlled heart rates 5) Blood pressure better controlled 6) Eliquis restarted 7) Will see PRN, call with questions... will follow up with Dr. Wolff 2-4 weeks after discharge Problem Qualifiers (1) Diarrhea: Qualified Code: R19.7 - Diarrhea, unspecified type Fox Gomez DO Jun 08, 2016 09:54
--- NOTE | 2016-06-08 11:48 | HHI.PR ---
Subjective Remarks up in chair alert, anxious to go home family in diarrhea resolve, Stool cultures negative color pink rested well last am. Afebrile (Cheri Zeng) Objective Objective Results - Vital Signs Date Time Temp Pulse Resp B/P Pulse Ox O2 Delivery O2 Flow Rate FiO2 06/08/16 08:11 96 21 06/08/16 08:00 95.8 60 20 170/80 92 06/08/16 00:00 96.2 63 17 147/68 95 06/07/16 20:00 96.0 60 17 143/65 98 06/07/16 16:00 95.4 53 16 148/67 97 06/07/16 13:40 93 21 06/07/16 12:00 95.9 54 16 166/75 95 I/O 06/07/16 06/07/16 06/07/16 06/08/16 06/08/16 06/08/16 07:00 15:00 23:00 07:00 15:00 23:00 Intake Total 120 ml 240 ml 240 ml 240 ml Balance 120 ml 240 ml 240 ml 240 ml Intake Oral 120 ml 240 ml 240 ml 240 ml IV Total 0 ml 0 ml # Voids 3 4 2 2 # Bowel Movements 0 1 1 (Cheri Zeng) Result Diagram: 06/06/1642406/06/16 0425 ROS General: Weakness (improved), Other (10 point ROS done weakness and diarrhea improved and or resolved. Confusion last a.m. and slept well, other systems negative or unremarkable) GI: Diarrhea (resolved) (Cheri Zeng) Physical Exam Physical Exam PHYSICAL EXAMINATION GENERAL: This is a thin female who appears to be in no acute distress. She is alert and awake, talkative HEAD: Normocephalic without any lesion or mass noted. Facial features appear symmetric. OROPHARYNGEAL: Oropharynx without erythema or edema. NECK: Supple. No nuchal rigidity or lymphadenopathy. Trachea midline without deviation. CARDIAC: Regular rhythm, regular rate, S1 and S2 are heard. Murmur heard LUNGS: Clear to auscultation bilaterally. no wheeze, use of accessory muscles on inspiration or expiration. ABDOMEN: Soft, nontender, no organomegaly or masses. Bowel sounds are heard in all four quadrants. No rebound. No guarding. EXTREMITIES: no edema. Pulses equal bilateral. NEUROLOGICAL: Patient mood and affect appropriate with mild anxiety to go home home No focal deficit SKIN:Warm and moist turgor thin Objective Remarks I'm ready to go home. (Cheri Zeng) A/P Assessment and Plan Assessment/Plan 1. Bilateral pleural effusions, left greater than right. s/p thoracentesis , 600 cc fluid removed SOB better, able to tolerate on room air post procedure CXR Neg for PTx/improved effusion cont fluid restriction 2DEcho NL LVF, EF 60 to 65%. mod Mild MR / Mod TR 2. s/p Hypokalemia d/t diarrhea Diarrhea resolved, stable 3. ch Diarrhea. chronic Dr Anderson's input appreciated collagenous Colitis , stool specimens negative, stable 4. Hx Atrial fibrillation s/p Ablation , currently in SR on BB Resume Eliquis , stable 5. Hyperlipidemia. Controlled medical management 6 Gastroesophageal reflux disease. Medical management 7. Depression. Medical management, anxiety at times. Slept well last night with Xanax, no Ambien 8. HTN , better cont TYRONE-I/ CCB/BB, stable Discharge planning in process, Dr. kelly to see Xanax prn , worked well at night for rest Discussed With: Nurse, Family (patient and family), Other (Dr. Kelly, patient seen on his behalf) (Cheri Zeng) Assessment and Plan PT IS SEEN & eXAMINED D/W PT 7 AT BEDSIDE D/W CHERI PT analysis c/w Transudative fluid medically stable BP stable cleared by card & Pulmonary start Budesonide d/c home w HHXC see Orders f/u pcp f/u card & GI (Favian Kelly MD) Cheri Zeng Jun 08, 2016 11:48 Favian Kelly MD Jun 08, 2016 12:35
[2016-06-08 12:00] VITALS: BP 151/67; PULSE 56; RESP 18; TEMP 95.8; O2SAT 97
[2016-06-08] MEDS ORDERED: BUDE9TAB PO (12:41)
[2016-06-08] MEDS ORDERED: AMLO10 PO (12:41)
[2016-06-08] MEDS ORDERED: LISI-519 PO (12:41)
[2016-06-08] MEDS ORDERED: FURO1TAB62 PO (12:41)
[2016-06-08] MEDS ORDERED: POTA-243 PO (12:41)
--- NOTE | 2016-06-08 12:44 | HHI.FF ---
Face to Face Verification Diagnosis: (1) Shortness of breath (2) Pleural effusion (3) Hypertension (4) Valvular disease (5) Paroxysmal a-fib (6) Anxiety (7) Frequent falls Physical Therapy Order: Evaluate and Treat, Improve ambulation, Strength and gait training Home Health Nursing Order: Medical education Signs/symptoms of disease process CHF education Medication education-adverse effect I have seen patient Eleanor Alfonso on 06/08/16. My clinical findings support the need for the requested home health care services because: Ltd mobility - disease progression Patient has SOB Deconditioned w/ increased weakness High risk of falls I certify that my clinical findings support that this patient is homebound because: Unsteady gait/balance Unsafe to leave home unassisted Unable to use public transportation Favian Kelly MD Jun 08, 2016 12:44
--- NOTE | 2016-08-03 18:51 | HHI.DS ---
Discharge Summary Admission Date Jun 03, 2016 at 16:46 Discharge Date: Jun 08, 2016 Admitting Diagnosis hypoxia, dyspnea, bilateral pleural effusions (1) Pleural effusion (2) Diarrhea (3) Paroxysmal a-fib (4) Valvular disease (5) Hypertension (6) Anxiety (7) GERD (gastroesophageal reflux disease) (8) Hypoxia Imaging Last Impressions Chest X-Ray 06/07/16 0600 Signed Impressions: Service Date/Time: May 05:26 - CONCLUSION: Decrease in bilateral atelectasis versus consolidation at the bases. Decrease in pleural effusions. John Mancuso MD Thoracentesis Ultrasound 06/07/16 0000 Signed Impressions: Service Date/Time: May 09:11 - CONCLUSION: Uncomplicated ultrasound guided thoracentesis. Ayden Gutierres MD FACR CT Angiography 06/03/16 1416 Signed Impressions: Service Date/Time: Friday, June 03, 2016 15:17 - CONCLUSION: 1. No pulmonary embolus. 2. Moderate right and moderate to large left pleural effusions with basilar consolidation. 3. Mild left atrial margin. Possible tricuspid regurg. 4. Coronary artery calcification. Jerry Mcdonough MD Abdomen/Pelvis CT 06/03/16 0000 Signed Impressions: Service Date/Time: Friday, June 03, 2016 20:20 - CONCLUSION: 1. Nonspecific fluid-filled colon. No obstruction or perceptible inflammatory changes. 2. Small stones in the gallbladder without evidence of conus cystitis or biliary obstruction. 3. Atherosclerotic and tortuous abdominal aorta. No aneurysm. 4. Bilateral pleural effusions. 5. Small bubble of gas in the urinary bladder; was the bladder recently catheterized? Jerry Mcdonough MD Hospital Course The patient is a very pleasant 86-year-old female with a past medical history significant for hypertension, atrial fibrillation, cerebrovascular accident / transient ischemic attack who presents to the emergency room with complaints of diarrhea. Per patient she had a stroke last January and ever since she has been ill with diarrhea. It has increased slightly over the course of the last week and now is darker. The patient is anticoagulated for a history of cerebrovascular accident / transient ischemic attack. The patient was slightly dyspneic on examination and though she initially did not complain of this, upon further questioning she did say that her dyspnea has been progressively worsening for the last two days. Denied any cough or chest congestion. Denied any chest pain. Denied any pedal edema. Denied any fever. Per patient she had CT-guided aspiration of left pleural effusion two months ago at [facility]. Her machine setter is Dr. Abel. She also had cardiac ablation times two. Her keno writer is Dr. Lares. In the ER a chest x-ray done showed moderate left effusion, some degree of left base atelectasis or consolidation. The D-dimer done in the ER was elevated at 0.78, so a CT angiography was requested which ruled out any pulmonary embolism but it did show moderate right moderate to large left pleural effusions with basilar consolidation. Because of the patient's symptomatology and the abnormal findings, the patient was admitted for further evaluation. LABORATORY DATA Labs done showed a WBC of 5.3, hemoglobin 11.4, hematocrit 34.2. Platelets 308,000. PT is 16.7, INR is 1.5. D-dimer is 0.78. Potassium is 2.9, chloride 107, BUN 5, creatinine 0.68. Calcium is 8.4. Troponin I is less than 0.02. Urinalysis is positive for leukocyte esterase. ABG shows a bicarbonate of 21, oxygen is 93%. IMAGING A chest x-ray showed large pleural effusion and small right pleural effusion. Mild cardiomegaly. CT pulmonary angiogram showed no evidence of pulmonary embolism. Moderate right and moderate to large left pleural effusion with bibasilar consolidation. A 12-lead EKG showed sinus bradycardia, no notable ST abnormalities, normal intervals. Pt. admitted for: 1. Bilateral pleural effusions, left greater than right. 2. Dyspnea. 3. Hypoxia. 4. Hypokalemia. 5. Diarrhea. 6. History of left pleural effusion. 7. Atrial fibrillation. 8. Hyperlipidemia. 9. Gastroesophageal reflux disease. 10. Depression. During the course of the hospitalization, the following took place: Admitted the patient to cardiac care unit. Started the patient on continuous telemetry monitoring. Started the patient empirically on Rocephin. Continue the patient on oxygen, titrate to keep pulse oximetry about 92%. Requested pulmonary consultation with Dr. Lares, cardiology consultation with Dr. Abel. Heme-occult stool done in the emergency room was negative. Requested 2-D echocardiogram. Patient received potassium in the emergency room and also a dose of IV Lasix. Repeated K level. Continue the patient on IV Lasix 40 milligrams IV twice a day. Monitored the electrolytes and replace as needed. Requested a GI consultation Requested CT scan of the abdomen to rule out any colitis or diverticulitis. Continue the home medications as appropriate. Deep venous thrombosis prophylaxis with Eliquis. Peptic ulcer disease prophylaxis with Nexium. Checked lipase and amylase. Pt. found with pleural effusions, left greater than right. s/p thoracentesis , 600 cc fluid removed post procedure CXR Neg for PTx/improved effusion cont fluid restriction 2DEcho NL LVF, EF 60 to 65%. mod Mild MR / Mod TR s/p Hypokalemia d/t diarrhea Diarrhea resolved, stable It was chronic, evaluated by GI Dr. Anderson and Dr. Chase collagenous Colitis , stool specimens negative, stable Started on Budosenide Hx Atrial fibrillation s/p Ablation , currently in SR on BB Resumed Eliquis after thoracentesis Hyperlipidemia. Controlled medical management Gastroesophageal reflux disease. Medical management Depression. Medical management, anxiety at times. Slept well with Xanax, no Ambien HTN , better cont TYRONE-I/ CCB/BB, stable Pt's condition improved, vss, labs stabilized, no SOB no fever. CM consult for DC planning cleared by all consultants Discharged home in stable condition Pt Condition on Discharge: Stable Discharge Disposition: Disch w/ Home Health Serv Discharge Instructions DIET: Follow Instructions for: Heart Healthy Diet Fluid Restrictions: 1500cc/day Activities you can perform: Weight Bearing as Lou Other Activity Instructions: fall precautions Follow up Referrals: Cardiology - 3 Weeks Gastroenterology - 4 Weeks PCP Follow-up - 1 Week New Medications: Budesonide ER 24 HR (Uceris ER 24 HR) 9 Mg Vale 9 MG PO DAILY colitis #30 Ref 0 TAB Furosemide (Lasix) 20 Mg Tab 20 MG PO DAILY chf #30 Ref 0 TAB Amlodipine (Norvasc) 10 Mg Tab 10 MG PO DAILY htn #30 TAB Lisinopril (Lisinopril) 5 Mg Tab 10 MG PO DAILY htn #60 TAB Potassium Chloride ER (Klor-Con 10) 10 Meq Tab 10 MEQ PO DAILY low K #30 TAB Continued Medications: Apixaban (Eliquis) 2.5 Mg Tab 2.5 MG PO BID@06,18 afib and stroke #60 Ref 0 TAB Escitalopram (Lexapro) 10 Mg Tab 10 MG PO DAILY #30 Ref [address] (Nexium) 20 Mg Capdr 20 MG PO DAILY Ref 0 CAP Metoprolol Tartrate (Metoprolol Tartrate) 100 Mg Tab 100 MG PO BID #60 Ref 0 TAB Pravastatin (Pravastatin) 10 Mg Tab 10 MG PO DAILY Cholesterol Management #30 Ref 0 TAB Tamika Jim [facility] August 03, 2016 18:51
== END 2016-06-08 14:26 | disposition home health service (06) | DRG 187 ==
LOC: NEPE 12:57 → NEDA 16:46 → N07A 18:35
PROVIDERS: ADMIT Family Medicine; ATTEND Family Medicine
PROC: 0W9B3ZX Drainage of Left Pleural Cavity, Percutaneous Approach, Diagnostic (ICD-10-PCS; principal; 2016-06-07)
DX: J90 Pleural effusion, not elsewhere classified (principal); I69.354 Hemiplegia and hemiparesis following cerebral infarction affecting left non-dominant side; E88.09 Other disorders of plasma-protein metabolism, not elsewhere classified; J98.11 Atelectasis; I48.0 Paroxysmal atrial fibrillation; R19.7 Diarrhea, unspecified; G30.9 Alzheimer's disease, unspecified; F02.80 Dementia in other diseases classified elsewhere, unspecified severity, without behavioral disturbance, psychotic disturbance, mood disturbance, and anxiety; H91.90 Unspecified hearing loss, unspecified ear; F32.9 Major depressive disorder, single episode, unspecified; F41.9 Anxiety disorder, unspecified; I51.7 Cardiomegaly; R09.02 Hypoxemia; E78.5 Hyperlipidemia, unspecified; I10 Essential (primary) hypertension; K21.0 Gastro-esophageal reflux disease with esophagitis; K44.9 Diaphragmatic hernia without obstruction or gangrene; E87.6 Hypokalemia; Z79.02 Long term (current) use of antithrombotics/antiplatelets; I35.2 Nonrheumatic aortic (valve) stenosis with insufficiency; I25.10 Atherosclerotic heart disease of native coronary artery without angina pectoris; K80.20 Calculus of gallbladder without cholecystitis without obstruction; G47.00 Insomnia, unspecified
CPT/HCPCS: 32555; 36600; 71010; 71275; 74176; 80048; 80053; 80061; 81001; 82150; 82272; 82805; 83615; 83690; 84157; 84439; 84443; 84484; 85025; 85027; 85379; 85610; 85730; 86850; 86900; 86901; 87086; 87207; 87328; 87329; 87338; 87425; 87493; 87506; 88112; 88305; 93005; 93306; 96374; 96375; C1729; J0360; J1940; J3480; P9612; Q9967

== ENCOUNTER 2016-08-07 00:56 | Inpatient (IN) | payer MEDICARE, OTHER ==
[2016-08-07] VITALS (13 sets, daily range): BP systolic 100–168; BP diastolic 50–87; PULSE 64–93; RESP 13–20; TEMP 96.3–103.1; O2SAT 93–98
[~2016-08-07] VITALS: Ht 162.6 cm; Wt 52.6 kg
[~2016-08-07 00:56] MED LIST changes: +AMLO10 PO; +BUDE9TAB PO; -DILT60TA33 PO; +FURO1TAB62 PO; -LISI-515 PO; +LISI-519 PO; +POTA-243 PO; -TRAV0.00 EACH EYE
[2016-08-07] MEDS ORDERED: SODIUM CHLOR 0.9% 1000 ML INJ 1,000 ML IV ONE (01:15)
[2016-08-07] MEDS ORDERED: ONDANSETRON HCL 4 MG/2 ML VIAL IVP ONE (01:15)
[2016-08-07] MEDS ORDERED: VANCOMYCIN INJ 1,000 MG in SODIUM CHLOR 0.9% 250 ML INJ 250 ML IV ONE (01:15)
[2016-08-07] MEDS ORDERED: ACETAMINOPHEN 325 MG TAB PO ONE (01:15)
[2016-08-07] MEDS ORDERED: SODIUM CHLORIDE 0.9% FLUSH 10 ML FLUSH IVF PRN (01:15)
[2016-08-07] MEDS ORDERED: CEFEPIME INJ 1,000 MG in SODIUM CHLORIDE 0.9% INJ 100 ML IV ONE (01:15)
--- NOTE | 2016-08-07 01:27 | RADRPT ---
EXAM DATE/TIME: 08/07/2016 01:09 [facility] COMPARISON: CHEST SINGLE AP, June 07, 2016, 5:26. INDICATIONS : Chest pain. MEDICAL HISTORY : Atrial fibrillation. SURGICAL HISTORY : Thoracentesis. ENCOUNTER: Initial ACUITY: 1 day PAIN SCORE: 6/10 LOCATION: Bilateral chest FINDINGS: A single AP portable semierect view of the chest was obtained and again demonstrates patchy opacity i n both lung bases left greater than right with partial obscuration of the left hemidiaphragm. The hea rt size is mildly prominent. There is stable blunting of the left costophrenic angle. There are ather osclerotic changes in the aorta. Tracheal calcifications are present as well. CONCLUSION: No significant change. Patchy opacity remains at the lung bases left greater than right with probable left effusion. Jamin Yost MD on August 07, 2016 at 1:24 Board Certified Radiologist. This report was verified electronically.
[2016-08-07 01:38] LABS: AUTOMATED NEUTROPHIL # 11.6 TH/MM3 (1.8-7.7); BASOPHIL # 0.1 TH/MM3 (0-0.2); BASOPHIL % 0.4 % (0.0-2.0); EOSINOPHIL # 0.2 TH/MM3 (0-0.4); EOSINOPHIL % 1.4 % (0.0-4.0); HEMATOCRIT 40.2 % (35.0-46.0); HEMO FLAGS DIFF FINAL; LYMPH % 5.5 % (9.0-44.0); LYMPHOCYTE # 0.7 TH/MM3 (1.0-4.8); MEAN CELL VOLUME 90.7 FL (80.0-100.0); MEAN CORPUSCULAR HEMOGLOBIN 29.9 PG (27.0-34.0); MEAN CORPUSCULAR HGB CONC 32.9 % (32.0-36.0); MONO % 4.9 % (0.0-8.0); NEUT % 87.8 % (16.0-70.0); PLATELET COUNT 212 TH/MM3 (150-450); RED BLOOD COUNT 4.43 MIL/MM3 (4.00-5.30); RED CELL DISTRIBUTION WIDTH 15.3 % (11.6-17.2); WHITE BLOOD COUNT 13.2 TH/MM3 (4.0-11.0)
[2016-08-07 01:55] LABS: APTT (PATIENT) 29.8 SEC (24.3-30.1); INTERNATIONAL NORMALIZED RATIO 1.2 RATIO; PROTHROMBIN TIME - PATIENT 13.7 SEC (9.8-11.6)
--- NOTE | 2016-08-07 02:07 | RADRPT ---
EXAM DATE/TIME: 08/07/2016 01:50 [facility] COMPARISON: CT BRAIN W/O CONTRAST, February 10, 2016, 1:35. INDICATIONS : Dizziness. RADIATION DOSE: 38.27 CTDIvol (mGy) MEDICAL HISTORY : Alzheimer's Gastroesophageal reflux disease. Hernia, hiatal. Hypertension. SURGICAL HISTORY : Hernia repair. Cardiac catherization. ENCOUNTER: Initial ACUITY: 1 day PAIN SCALE: 0/10 LOCATION: cranial TECHNIQUE: Multiple contiguous axial images were obtained of the head. Using automated exposure control and adj ustment of the mA and/or kV according to patient size, radiation dose was kept as low as reasonably a chievable to obtain optimal diagnostic quality images. FINDINGS: CEREBRUM: Moderate atrophic changes are again noted with sulcal and ventricular prominence. The lateral ventric les remain mildly prominent. Ventricular white matter lucencies remain which are unchanged. No eviden ce of midline shift, mass lesion, hemorrhage or acute infarction. No extra-axial fluid collections a re seen. POSTERIOR FOSSA: The cerebellum and brainstem are stable in appearance. There is a small infarct again noted in the le ft cerebellar hemisphere. The 4th ventricle is midline. The cerebellopontine angle is unremarkable. EXTRACRANIAL: The visualized portion of the orbits is intact. SKULL: The calvaria is intact. No evidence of skull fracture. CONCLUSION: 1. No acute hemorrhage or mass effect. 2. Stable atrophy and ventricular prominence. 3. Periventricular white matter lucencies which remain most consistent with chronic small vessel isch emic change. 4. Small area of infarction in the left cerebellar hemisphere. Jamin Yost MD on August 07, 2016 at 2:03 Board Certified Radiologist. This report was verified electronically.
[2016-08-07 02:17] LABS: ALKALINE PHOSPHATASE 90 U/L (45-117); ALT (GPT) 33 U/L (10-53); ANION GAP 10 MEQ/L (5-15); AST (GOT) 28 U/L (15-37); BICARBONATE 24.1 MEQ/L (21.0-32.0); BLOOD UREA NITROGEN 10 MG/DL (7-18); CHLORIDE 98 MEQ/L (98-107); GLOMERULAR FILTRATION RATE 81 ML/MIN (>89); SODIUM (NA) 132 MEQ/L (136-145); TOTAL BILIRUBIN ADULT 0.6 MG/DL (0.2-1.0)
[2016-08-07 02:20] LABS: CREATINE KINASE 56 U/L (26-192)
[2016-08-07 02:22] LABS: POTASSIUM 2.9 MEQ/L (3.5-5.1)
[2016-08-07] MEDS ORDERED: POTASSIUM CHLORIDE 10 MEQ CONTROLLED RELEASE TAB PO ONE (03:30)
[2016-08-07 04:43] LABS: BACTERIA, URINE OCC /hpf; BLOOD, URINE NEG (NEG); GLUCOSE,URINE NEG (NEG); KETONE, URINE 10 mg/dL (NEG); MUCUS URINE FEW /lpf (OCC); NITRITE,URINE NEG (NEG); PH, URINE 5.5 (5.0-8.5); SQUAMOUS EPITHELIAL CELL URINE 1 /hpf (0-5); URINE COLOR YELLOW (YELLW/STRAW)
[2016-08-07] MEDS ORDERED: ATOR20TA15 PO (04:43)
[2016-08-07 04:44] LABS: COMMENT (UR) CATH-CULTURE IND; CULTURE IF INDICATED CATH CULTURE IND
[2016-08-07] MEDS ORDERED: SODIUM CHLORIDE 0.9% FLUSH 10 ML FLUSH IV FLUSH PRN (07:00)
[2016-08-07] MEDS ORDERED: ONDANSETRON HCL 4 MG/2 ML VIAL IVP PRN (07:00)
[2016-08-07] MEDS ORDERED: Vancomycin Consult Pharmacy 1 EA OTHER SCH (07:00)
[2016-08-07] MEDS ORDERED: NALOXONE HCL 0.4 MG/ML AMP IV PRN (07:00)
--- NOTE | 2016-08-07 07:28 | PD ---
HPI Chief Complaint: Syncope/Near-Syncope Time Seen by Provider: 01:05 Travel History International Travel<30 days: No Contact w/Intl Traveler<30days: No Traveled to known affect area: No History of Present Illness HPI Patient is an 86-year-old female who comes in complaining of generalized weakness. Her called EMS because she was very weak and slightly altered at home. She says she feels nauseous, and overall very weak. She denies any chest pain or shortness of breath. She denies any abdominal pain. She denies any falls. PFSH Past Medical History Hx Anticoagulant Therapy: Yes Alzheimer's Disease: Yes Atrial Fibrillation: Yes Anxiety: Yes Depression: Yes Heart Rhythm Problems: Yes (RVR) Cardiac Catheterization: Yes (ablation) Cardiovascular Problems: Yes High Cholesterol: Yes (resolved) Cerebrovascular Accident: Yes Dementia: Yes (slight) Diminished Hearing: Yes GERD: Yes Hiatal Hernia: Yes Hypertension: Yes Neurologic: Yes Immunizations Current: Yes Tetanus Vaccination: Unknown Influenza Vaccination: No Menopausal: Yes Past Surgical History Abdominal Surgery: Yes (HERNIA ) Section: Yes Eye Surgery: Yes (removal of cataracts - bilateral) Gynecologic Surgery: Yes (removal of ovarian cyst) Hysterectomy: Yes Tonsillectomy: Yes Other Surgery: Yes (DERMOID CYST REMOVED AT 46 YEARS OF AGE, ) Social History 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) Tobacco Use: No Substance Use: No Allergies-Medications (Allergen,Severity, Reaction): Coded Allergies: Lactose (Verified Allergy, Unknown, Cramping, 06/03/16) Reported Meds & Prescriptions Reported Meds & Active Scripts Active Norvasc (Amlodipine Besylate) 10 Mg Tab 10 Mg PO DAILY Lisinopril 5 Mg Tab 10 Mg PO DAILY Eliquis (Apixaban) 2.5 Mg Tab 2.5 Mg PO BID@,18 Reported Atorvastatin (Atorvastatin Calcium) 20 Mg Tab 20 Mg PO HS Lexapro (Escitalopram Oxalate) 10 Mg Tab 10 Mg PO DAILY Nexium (Esomeprazole DR) 20 Mg Capdr 20 Mg PO DAILY Metoprolol Tartrate 100 Mg Tab 100 Mg PO BID Review of Systems Except as stated in HPI: all other systems reviewed are Neg General / Constitutional: Positive: Fever HENT: Positive: Lightheadedness, No: Headaches Cardiovascular: No: Chest Pain or Discomfort Respiratory: No: Shortness of Breath Gastrointestinal: Positive: Nausea, No: Abdominal Pain Musculoskeletal: No: Edema Skin: No Rash, No Change in Pigmentation Neurologic: Positive: Weakness Physical Exam Narrative GENERAL: Awake and alert, in no acute distress. SKIN: Focused skin assessment warm/dry. HEAD: Atraumatic. Normocephalic. EYES: Pupils equal and round. No scleral icterus. Extraocular movements intact. ENT: Mucous membranes pink and moist. NECK: Trachea midline. No JVD. CARDIOVASCULAR: Regular rate and rhythm. No murmur appreciated. RESPIRATORY: No accessory muscle use. Clear to auscultation. Breath sounds equal bilaterally. GASTROINTESTINAL: Abdomen soft, non-tender, nondistended. MUSCULOSKELETAL: No obvious deformities. No clubbing. No cyanosis. No edema. NEUROLOGICAL: Awake and alert. No obvious cranial nerve deficits. Motor grossly within normal limits. Normal speech. PSYCHIATRIC: Appropriate mood and affect; insight and judgment normal. Data Data Last Documented VS Vital Signs Date Time Temp Pulse Resp B/P Pulse Ox O2 Delivery O2 Flow Rate FiO2 08/07/16 05:44 99.9 64 20 119/58 98 08/07/16 04:36 Room Air 08/07/16 02:44 2 Orders Complete Blood Count With Diff (08/07/16 01:05) Comprehensive Metabolic Panel (08/07/16 01:05) Ckmb (Isoenzyme) Profile (08/07/16 01:05) Troponin I (08/07/16 01:05) Act Partial Throm Time (Ptt) (08/07/16 01:05) Prothrombin Time / Inr (Pt) (08/07/16 01:05) Urinalysis - C+S If Indicated (08/07/16 01:05) Ua Includes Microscopic (08/07/16 01:05) Chest, Single Ap (08/07/16 01:05) Ct Brain W/O Iv Contrast(Rout) (08/07/16 01:05) Ecg Monitoring (08/07/16 01:05) Iv Access Insert/Monitor (08/07/16 01:05) Oximetry (08/07/16 01:05) Ondansetron Inj (Zofran Inj) (08/07/16 01:15) Sodium Chloride 0.9% Flush (Ns Flush) (08/07/16 01:15) Lactic Acid (08/07/16 01:11) Blood Culture (08/07/16 01:11) Acetaminophen (Tylenol) (08/07/16 01:15) Sodium Chlor 0.9% 1000 Ml Inj (Ns 1000 M (08/07/16 01:15) Cefepime Inj (Maxipime Inj) (08/07/16 01:15) Vancomycin Inj (Vancomycin Inj) (08/07/16 01:15) Potassium Chloride (Kcl) (08/07/16 03:30) Urine Culture (08/07/16 04:30) Admit Order (Ed Use Only) (08/07/16 ) Labs Laboratory Tests Test 08/07/16 08/07/16 01:21 04:30 White Blood Count 13.2 TH/MM3 Red Blood Count 4.43 MIL/MM3 Hemoglobin 13.2 GM/DL Hematocrit 40.2 % Mean Corpuscular Volume 90.7 FL Mean Corpuscular Hemoglobin 29.9 PG Mean Corpuscular Hemoglobin 32.9 % Concent Red Cell Distribution Width 15.3 % Platelet Count 212 TH/MM3 Mean Platelet Volume 8.5 FL Neutrophils (%) (Auto) 87.8 % Lymphocytes (%) (Auto) 5.5 % Monocytes (%) (Auto) 4.9 % Eosinophils (%) (Auto) 1.4 % Basophils (%) (Auto) 0.4 % Neutrophils # (Auto) 11.6 TH/MM3 Lymphocytes # (Auto) 0.7 TH/MM3 Monocytes # (Auto) 0.6 TH/MM3 Eosinophils # (Auto) 0.2 TH/MM3 Basophils # (Auto) 0.1 TH/MM3 CBC Comment DIFF FINAL Differential Comment Prothrombin Time 13.7 SEC Prothromb Time International 1.2 RATIO Ratio Activated Partial 29.8 SEC Thromboplast Time Sodium Level 132 MEQ/L Potassium Level 2.9 MEQ/L Chloride Level 98 MEQ/L Carbon Dioxide Level 24.1 MEQ/L Anion Gap 10 MEQ/L Blood Urea Nitrogen 10 MG/DL Creatinine 0.69 MG/DL Estimat Glomerular Filtration 81 ML/MIN Rate Random Glucose 147 MG/DL Lactic Acid Level 2.0 mmol/L Calcium Level 9.2 MG/DL Total Bilirubin 0.6 MG/DL Aspartate Amino Transf 28 U/L (AST/SGOT) Alanine Aminotransferase 33 U/L (ALT/SGPT) Alkaline Phosphatase 90 U/L Total Creatine Kinase 56 U/L Troponin I LESS THAN 0.02 NG/ML Total Protein 7.6 GM/DL Albumin 3.6 GM/DL Urine Color YELLOW Urine Turbidity CLEAR Urine pH 5.5 Urine Specific Roberts 1.015 Urine Protein 30 mg/dL Urine Glucose (UA) NEG mg/dL Urine Ketones 10 mg/dL Urine Occult Blood NEG Urine Nitrite NEG Urine Bilirubin NEG Urine Urobilinogen LESS THAN 2.0 MG/DL Urine Leukocyte Esterase NEG Urine RBC 3 /hpf Urine WBC 1 /hpf Urine Squamous Epithelial 1 /hpf Cells Urine Bacteria OCC /hpf Urine Mucus FEW /lpf Microscopic Urinalysis Comment CATH-CULTURE IND MDM Medical Decision Making Medical Screen Exam Complete: Yes Emergency Medical Condition: Yes Medical Record Reviewed: Yes Interpretation(s) ECG shows A. fib at 88, no ST elevation, depressions in lead V4 and V5. Differential Diagnosis Sepsis versus UTI versus pneumonia versus ACS Narrative Course Patient is an 86-year-old female comes in due to weakness and altered mental status. Exam shows patient is alert and oriented 3. IV established, labs sent. Patient connected to cardiac surgeon. Patient found to be febrile to 103 on arrival. Abdomen elevated white blood cell count of 13.2. Patient given IV fluids. Given cefepime and vancomycin. Blood culture sent. Patient does have a history of UTI which she has been taking antibiotics for. Patient has no meningeal signs currently. Source is still unknown for sepsis. Patient be admitted for further management. Diagnosis Primary Impression: Sepsis Qualified Code: A41.9 - Sepsis, due to unspecified organism Admitting Information Admitting Physician Requests: Admit Rosa M Corrigan MD August 07, 2016 07:28
[2016-08-07] MEDS: SODIUM CHLOR 0.9% 1000 ML INJ 1,000 ML IV SCH ×2 (07:29→15:06)
[2016-08-07] MEDS: METOPROLOL TARTRATE 100 MG TAB PO SCH ×3 (09:00→21:00)
[2016-08-07] MEDS: LISINOPRIL 10 MG TAB PO SCH ×2 (09:00→12:08)
[2016-08-07] MEDS ORDERED: HEPARIN SODIUM - SQ 10,000 UNITS/ML VIAL SQ SCH (09:00)
[2016-08-07] MEDS: POTASSIUM CHLORIDE 20 MEQ CONTROLLED RELEASE TAB PO SCH ×2 (09:04→20:08)
[2016-08-07] MEDS: PANTOPRAZOLE SOD 20 MG DELAYED RELEASE TAB PO SCH (09:04)
--- NOTE | 2016-08-07 10:07 | MH ---
cc: NEEL HIGGINS DATE OF ADMISSION: 08/07/2016 DATE OF : 1930 CHIEF COMPLAINT 1. Near syncope/collapse. 2. Generalized weakness. 3. Fever, chills. RECENT TRAVEL: No travel in the last thirty days. HISTORY OF PRESENT ILLNESS: This is a pleasant 86 year-old female with multiple medical comorbidities who comes to the emergency room complaining of generalized weakness. She states that she has been feeling bad for several days but this has continued to get worse. She was seen by her regular physician for a urinary tract infection approximately 8 to 9 days ago and was given antibiotics for ten days. She had taken eight days of p.o. antibiotics but has continued to have fevers, chills, malaise but last p.m. collapsed in the bathroom, she was so weak. The patient has noted some increase in confusion even though she already has a diagnosis of dementia. The patient denies passing out, denies any other falls. She does have a decreased appetite with some nausea but no vomiting. The patient usually is incontinent and wears diapers, she did complain of some diarrhea this past p.m. also. She denies any chest pain, no acute shortness of breath, no abdominal pain no headaches. PAST MEDICAL HISTORY: Most of her medical history has been obtained through the record which includes; 1. Dementia 2. Alzheimer's disease controlled. 3. Atrial fibrillation 4. history of anticoagulant therapy 5. Depression 6. Cardiovascular disease 7. Hyperlipidemia 8. Cerebrovascular accidents 9. Dementia. 10. Diminished hearing. 11. Gastroesophageal reflux disease 12. Hiatal hernia. 13. Hypertension. PAST SURGICAL HISTORY: 1. Hernia repair. 2. Bilateral cataract removal. 3. Ovarian cyst. 4. Normal dermoid cyst removed at 46 years old. 5. Hysterectomy. 6. Tonsillectomy. 7. Ablation. ALLERGIES LACTOSE REPORTED MEDICATIONS: 1. Norvasc. 2. Lisinopril. 3. Eliquis 4. Atorvastatin 5. Lexapro 6. Nexium. 7. Metoprolol 8. Some type of antibiotics for her urinary tract infection, she did not bring her with her. SOCIAL HISTORY: The patient is , currently lives at home with her . They have a son who is also here at the hospital checking on her. The patient does not smoke, no illicit drugs but does have a couple of glasses of wine daily. REVIEW OF SYSTEMS A 12 point review of systems was done. The patient is positive for symptoms noted in the history of present illness, pulse a systolic murmur, incontinence, near syncopal episode and collapse last p.m. fever, malaise, mild confusion, diarrhea, and dysuria with burning. Other systems are negative or unremarkable. PHYSICAL EXAMINATION: VITAL SIGNS: Temperature 99.9, axillary, pulse 64, respirations 20, blood pressure 119/58, o2 saturation 98% currently on room air. Temperature at 1:55 a.m. was 103.1. IN GENERAL: This is a frail, white female who looks to be her stated age. She is alert, with mild pleasant confusion. SKIN: The skin is thin, turgor, pale but warm and dry. Mild bumps and abrasions noted on her extremities but no acute lacerations were seen. HEAD, EYES, EARS, NOSE, AND THROAT: Atraumatic, normocephalic, Pupils equal, round, reactive to light and accommodation, mucous membranes are dry, slightly pale. NECK: The neck is thin and supple. CARDIOVASCULAR SYSTEM: S2, S2, systolic murmur, grade 4/6 at the left sternal border. Shows no edema, pulses are intact. RESPIRATORY: Lung sounds are essentially clear anteriorly and posteriorly with no wheezes, rales or rhonchi. ABDOMEN: The abdomen is flat, soft, nontender, nondistended, bowel sounds are active. MUSCULOSKELETAL: Moves her extremities with purpose, no acute edema. Her pulses are intact. NEUROLOGIC: She is alert, she has some general confusion over her total situation as well as her current situation. Her affect is appropriate for her age. She has equal hand dispatch clerk but they are both weak, generalized weakness. PSYCHOLOGICAL: Her mood and affect are appropriate for her age and current situation. DIAGNOSTIC DATA: White blood count 13.2, Red blood cell 4.43. Hemoglobin 13.2, hematocrit 40.2, platelet count is 212, neutrophil auto count percentage 87.8, lymphocytes 5.5. All others are normal. Diff are normal. PT/INR is 1.2, chemistry on admission; sodium of 132, potassium 2.9, chloride 98. Carbon dioxide 24.1, anion gap 10, blood urea nitrogen 10, creatinine 0.69, glomerular filtration rate 81, random glucose 147, lactic acid is 2, troponin is negative at 0.02. All other chemistries are normal. IMAGING STUDIES: Show chest x-ray to have no significant change from patchy opacities in the left lung base, greater then the right, CT of the head shows no acute hemorrhage or mass effect, stable atrophy. Small area of infarct on the left cerebellar hemisphere. ASSESSMENT AND PLAN: 1. Urinary tract infection with urosepsis. 2. Leukocytosis. 3. Hypokalemia, severe. 4. Hyponatremia. 5. Alzheimer's dementia. 6. Gastroesophageal reflux disease. 7. History of atrial fibrillation. 8. History of coronary vascular disease. PLAN: The plan is to admit initially for observation, inpatient status, the patient will need IV antibiotic therapy to continue which will be cefepime. The patient was given Vancomycin and cefepime in the emergency room the patient will have her medications reconciled as warranted, she will receive potassium, p.o. as well as some potassium boluses. We will recheck her labs within the next 24 hours after her treatment regimen is completed. Deep venous thrombosis prophylaxis Heparin subcutaneous, peptic ulcer disease prophylaxis with Protonix. Vital signs will be q hours and as warranted, activity can be out of bed but only with assistance. Heart healthy diet, the patient will have electrocardiogram monitoring. Labs and medications as warranted, her course of treatment will be dependent on her response to therapies to my knowledge, she is full code, full aggressive care and we will continue to follow. Neel Higgins MD DICTATED BY: HOMER Addison JP/alissa /8:58 AM /9:24 AM pt seen and examined as above meds and labs reviewed chart was reviewed plan of care kwasi villalpando pt and family at bedside in detail SANJAY
[2016-08-07] MEDS: CEFEPIME INJ 1,000 MG in SODIUM CHLORIDE 0.9% INJ 100 ML IV SCH ×2 (11:55→20:08)
[2016-08-07] MEDS: POTASSIUM CHLOR 20 MEQ PREMIX 100 ML IV SCH ×2 (12:02→15:06)
[2016-08-07] MEDS: ALPRAZolam 0.25 MG TAB PO PRN ×2 (12:07→21:48)
[2016-08-07] MEDS: ESCITALOPRAM OXALATE 10 MG TAB PO SCH (12:07)
[2016-08-07] MEDS: SODIUM CHLORIDE 0.9% FLUSH 10 ML FLUSH IV FLUSH SCH ×2 (12:08→20:08)
--- NOTE | 2016-08-07 15:06 | EKG ---
Date Performed: 08/07/2016 Time Performed: 01:03:49 PTAGE: 86 years EKG: Likely ATRIAL FIBRILLATION, does appear to be intermittent organized atrial activity ST DEP RESSION, CONSIDER SUBENDOCARDIAL INJURY Recommend repeat ekg with an attempt at a swimming pool cleaner baseline. T he apparent atrial fibrillation is new from the previous ekg. Additionally anterolateral ST changes are new, consider ischemia ABNORMAL ECG PREVIOUS TRACING : 06/03/2016 14.08 DOCTOR: Nam Cardoso Interpretating Date/Time 08/07/2016 15:05:22
[2016-08-07] MEDS: ACETAMINOPHEN 325 MG TAB PO PRN ×2 (15:25→21:48)
[2016-08-07] MEDS: APIXABAN 2.5 MG TABLET PO SCH (20:08)
[2016-08-07] MEDS: ATORVASTATIN 20 MG TAB PO SCH (20:08)
[2016-08-08] MEDS: CEFEPIME INJ 1,000 MG in SODIUM CHLORIDE 0.9% INJ 100 ML IV SCH ×3 (02:48→18:22)
[2016-08-08] MEDS: SODIUM CHLOR 0.9% 1000 ML INJ 1,000 ML IV SCH ×3 (02:49→22:44)
[2016-08-08] MEDS: ACETAMINOPHEN 325 MG TAB PO PRN (02:49)
[2016-08-08] MEDS: APIXABAN 2.5 MG TABLET PO SCH ×2 (06:09→18:22)
[2016-08-08] MEDS: VANCOMYCIN INJ 1,250 MG in SODIUM CHLOR 0.9% 250 ML INJ 250 ML IV SCH (06:10)
[2016-08-08 07:38] LABS: AUTOMATED NEUTROPHIL # 10.4 TH/MM3 (1.8-7.7); BASOPHIL % 0.2 % (0.0-2.0); EOSINOPHIL # 0.1 TH/MM3 (0-0.4); EOSINOPHIL % 0.6 % (0.0-4.0); HEMATOCRIT 38.2 % (35.0-46.0); HEMO FLAGS DIFF FINAL; LYMPH % 9.9 % (9.0-44.0); LYMPHOCYTE # 1.3 TH/MM3 (1.0-4.8); MEAN CELL VOLUME 92.2 FL (80.0-100.0); MEAN CORPUSCULAR HEMOGLOBIN 29.7 PG (27.0-34.0); MEAN CORPUSCULAR HGB CONC 32.2 % (32.0-36.0); MONO % 9.7 % (0.0-8.0); NEUT % 79.6 % (16.0-70.0); PLATELET COUNT 178 TH/MM3 (150-450); RED BLOOD COUNT 4.14 MIL/MM3 (4.00-5.30); RED CELL DISTRIBUTION WIDTH 15.8 % (11.6-17.2); WHITE BLOOD COUNT 13.1 TH/MM3 (4.0-11.0)
[2016-08-08 08:00] VITALS: BP 145/82; PULSE 134; RESP 18; TEMP 98.1; O2SAT 92
[2016-08-08 08:14] LABS: ALT (GPT) 28 U/L (10-53); ANION GAP 8 MEQ/L (5-15); AST (GOT) 29 U/L (15-37); BICARBONATE 21.4 MEQ/L (21.0-32.0); BLOOD UREA NITROGEN 7 MG/DL (7-18); CHLORIDE 108 MEQ/L (98-107); GLOMERULAR FILTRATION RATE 97 ML/MIN (>89); POTASSIUM 3.9 MEQ/L (3.5-5.1); SODIUM (NA) 137 MEQ/L (136-145)
[2016-08-08 08:16] LABS: ALKALINE PHOSPHATASE 73 U/L (45-117); TOTAL BILIRUBIN ADULT 0.6 MG/DL (0.2-1.0)
[2016-08-08] MEDS: SODIUM CHLORIDE 0.9% FLUSH 10 ML FLUSH IV FLUSH SCH ×2 (09:00→21:08)
[2016-08-08] MEDS: METOPROLOL TARTRATE 100 MG TAB PO SCH ×3 (10:04→21:08)
[2016-08-08] MEDS: LISINOPRIL 10 MG TAB PO SCH (10:04)
[2016-08-08] MEDS: PANTOPRAZOLE SOD 20 MG DELAYED RELEASE TAB PO SCH (10:05)
[2016-08-08] MEDS: ESCITALOPRAM OXALATE 10 MG TAB PO SCH (10:05)
--- NOTE | 2016-08-08 11:18 | EKG ---
Date Performed: 08/07/2016 Time Performed: 09:12:33 PTAGE: 86 years EKG: Sinus rhythm MODERATE ST DEPRESSION PROLONGED QT INTERVAL ABNORMAL ECG NO PREVIOUS TRACING DOCTOR: Edson Giordano Interpretating Date/Time 08/08/2016 11:16:17
[2016-08-08 12:00] VITALS: BP 121/72; PULSE 116; RESP 18; TEMP 96.4; O2SAT 94
--- NOTE | 2016-08-08 12:18 | HHI.PR ---
Subjective Remarks Patient is lying on bed without any apparent distress Denies any complaint No headache No nausea vomiting As per patient she had a bowel movement. As per RN she is a 3 loose bowel movements No abdominal pain No shortness of breath or chest pain No cough No sore throat Review of systems a 12 point system otherwise unremarkable Objective Objective Results - Vital Signs Date Time Temp Pulse Resp B/P Pulse Ox O2 Delivery O2 Flow Rate FiO2 08/08/16 08:00 98.1 134 18 145/82 92 08/07/16 23:30 98.3 85 17 126/57 95 08/07/16 21:10 98.4 78 17 100/65 94 08/07/16 19:00 Room Air 08/07/16 16:10 96.9 69 18 110/61 95 08/07/16 12:00 98.3 74 13 118/79 97 I/O 08/07/16 08/07/16 08/07/16 08/08/16 08/08/16 08/08/16 07:00 15:00 23:00 07:00 15:00 23:00 Intake Total 1080 ml 1385 ml 742 ml Balance 1080 ml 1385 ml 742 ml Intake Oral 1080 ml 240 ml 60 ml IV Total 1145 ml 682 ml # Voids 8 5 7 # Bowel Movements 0 0 3 Result Diagram: 08/08/16 0650 08/08/16 0650 Other Results Laboratory Tests Test 08/08/16 06:50 White Blood Count 13.1 Red Blood Count 4.14 Hemoglobin 12.3 Hematocrit 38.2 Mean Corpuscular Volume 92.2 Mean Corpuscular Hemoglobin 29.7 Mean Corpuscular Hemoglobin 32.2 Concent Red Cell Distribution Width 15.8 Platelet Count 178 Mean Platelet Volume 8.5 Neutrophils (%) (Auto) 79.6 Lymphocytes (%) (Auto) 9.9 Monocytes (%) (Auto) 9.7 Eosinophils (%) (Auto) 0.6 Basophils (%) (Auto) 0.2 Neutrophils # (Auto) 10.4 Lymphocytes # (Auto) 1.3 Monocytes # (Auto) 1.3 Eosinophils # (Auto) 0.1 Basophils # (Auto) 0.0 CBC Comment DIFF FINAL Differential Comment Sodium Level 137 Potassium Level 3.9 Chloride Level 108 Carbon Dioxide Level 21.4 Anion Gap 8 Blood Urea Nitrogen 7 Creatinine 0.59 Estimat Glomerular Filtration 97 Rate Random Glucose 108 Calcium Level 9.0 Total Bilirubin 0.6 Aspartate Amino Transf 29 (AST/SGOT) Alanine Aminotransferase 28 (ALT/SGPT) Alkaline Phosphatase 73 Total Protein 6.8 Albumin 2.8 Date/Time Procedure Status Source Growth 08/07/16 04:30 Urine Culture Received Urine Catheterized Urine Pending 08/07/16 01:45 Aerobic Blood Culture Received Blood Peripheral Pending 08/07/16 01:45 Anaerobic Blood Culture Received Blood Peripheral Pending Physical Exam Physical Exam IN GENERAL: This is a frail, white female who looks to be her stated age. She is alert, with mild pleasant confusion. SKIN: The skin is thin, turgor, pale but warm and dry. Mild bumps and abrasions noted on her extremities but no acute lacerations were seen. HEAD, EYES, EARS, NOSE, AND THROAT: Atraumatic, normocephalic, Pupils equal, round, reactive to light and accommodation, mucous membranes are dry, slightly pale. NECK: The neck is thin and supple. CARDIOVASCULAR SYSTEM: S2, S2, systolic murmur, grade 4/6 at the left sternal border. Shows no edema, pulses are intact. Tachycardia RESPIRATORY: Lung sounds are essentially clear anteriorly and posteriorly with no wheezes, rales or rhonchi. ABDOMEN: The abdomen is flat, soft, nontender, nondistended, bowel sounds are active. MUSCULOSKELETAL: Moves her extremities with purpose, no acute edema. Her pulses are intact. NEUROLOGIC: She is alert, she has some general confusion over her total situation as well as her current situation. Her affect is appropriate for her age. She has equal hand keysmith but they are both weak, generalized weakness. PSYCHOLOGICAL: Her mood and affect are appropriate for her age and current situation. A/P Assessment and Plan 1. Urinary tract infection with urosepsis. 2. Leukocytosis. 3. Hypokalemia, severe. 4. Hyponatremia. 5. Alzheimer's dementia. 6. Gastroesophageal reflux disease. 7. History of atrial fibrillation. 8. History of coronary vascular disease. PLAN: Labs reviewed Leukocytosis will monitor Potassium improved Tachycardia likely atrial fibrillation with put patient on telemetry monitoring, continue metoprolol and eliquis Cultures so far pending plan for C. difficile if continues to diarrhea Plan for cardiology consult Continue antibiotics Deep venous thrombosis prophylaxis patient is already on eliquis peptic ulcer disease prophylaxis with Protonix. Plan for electrocardiogram Medications reviewed continue same Discussed with patient and at bedside Discussed with RN EKG reviewed showing sinus rhythm at 2 PM this afternoon. Labs reviewed Patient likely had sinus tachycardia/A. fib with RVR this morning. It is resolved Will monitor on telemetry. Total time spent in management of this patient is more than 35 minutes Heather Higgins MD August 08, 2016 11:28
[2016-08-08 14:43] LABS: C. DIFF EPI 027 PRESUMPTIVE NEGATIVE (NEGATIVE); C. DIFF TOXIN PCR NEGATIVE (NEGATIVE)
[2016-08-08 16:00] VITALS: BP 135/62; PULSE 77; RESP 18; TEMP 97.9; O2SAT 94
--- NOTE | 2016-08-08 19:59 | MB ---
cc: BENJI LANCE DATE OF CONSULTATION 08/08/2016 DATE OF 1930 REASON FOR CONSULTATION Atrial fibrillation with rapid ventricular response. HISTORY OF PRESENT ILLNESS 86-year-old female with past medical history significant for Alzheimer's dementia, atrial fibrillation status post ablation in March 2016 on chronic oral anticoagulation, hyperlipidemia, hypertension, history of multiple hospitalizations in the hospital the last one being due to diarrhea, that presented to the hospital with generalized weakness in the setting of recent urinary tract infection. The patient was put on p.o. antibiotics by primary care physician, however, she continued with fevers, chills, malaise. According to she collapsed in the bathroom because of the weakness. She was also having increased confusion, thus the brought her to the emergency department for further evaluation. In the emergency department she was found to be with a fever 103, leukocytosis and electrolyte abnormalities for which she was admitted to the hospital. She has been treated for questionable sepsis, UTI. While in the hospital she had an episode of atrial fibrillation with RVR. She was put on a Cardizem drip. Thus cardiology has been consulted for further management and evaluation. Of note, the patient now is in sinus rhythm and she is off the Cardizem drip and she has no cardiovascular complaints. REVIEW OF SYSTEMS Negative except for what is mentioned in the HPI. PAST MEDICAL HISTORY 1. Alzheimer's. 2. Atrial fibrillation on chronic oral anticoagulation. 3. Depression. 4. Hyperlipidemia. 5. Diminished hearing. 6. Gastroesophageal reflux disease. 7. Hiatal hernia. 8. Hypertension. PAST SURGICAL HISTORY 9. Hernia repair. 10. Bilateral cataract removal. 11. Ovarian cyst. 12. Hysterectomy. 13. Tonsillectomy. 14. Atrial fibrillation ablation in March 2016. ALLERGIES LACTULOSE. MEDICATIONS Home medications: 1. Norvasc. 2. Lisinopril. 3. Eliquis. 4. Atorvastatin. 5. Lexapro. 6. Nexium. 7. Metoprolol. SOCIAL HISTORY She denies smoking, illicit drug use. She does takes a couple of glasses of wine daily. PHYSICAL EXAMINATION VITAL SIGNS: Temperature 97.9 coming down 103, RR 18, HR 77,BP 135/62, O2 sat 94 % room air. GENERAL: She is awake, alert and oriented in no acute distress. Eyes are sunken. NECK: No JVD, no carotid bruits. HEART: Regular rate and rhythm. No murmurs, rubs or gallops. LUNGS: Poor inspiratory effort. No wheezes or rhonchi or rales. ABDOMEN: Soft, nontender, nondistended. EXTREMITIES: No cyanosis or edema. Pulses throughout. Bruises in the bilateral lower extremities. LABORATORY DATA CBC, hemoglobin 12, hematocrit 38, white count of 13.1, platelet count of 178. INR 1.2. Electrolytes, sodium 137, potassium of 3.9 coming up from 2.9, BUN 7, creatinine 0.5. Troponins less than 0.02. Albumin 2.8. TSH 2.1. IMAGING STUDIES Chest x-ray left pleural effusion. CT scan of the head, chronic small vessel ischemic changes and small area of infarction in the left cerebellar hemisphere. There is stable atrophy and ventricular prominence. Chest CT scan no pulmonary emboli. program counselor sinus rhythm. ASSESSMENT/PLAN 86-year-old female admitted with a UTI / sepsis. We have been consulted for atrial fibrillation management. She remains afebrile, hemodynamically stable with no cardiovascular complaints. She converted back sinus rhythm, on metoprolol 100 p.o. mg b.i.d. as well as the Eliquis 2.5 mg p.o. b.i.d. I understand that the atrial fibrillation exacerbation likely due to the underlying infection / sepsis. Treat infection per primary team. Recommendations: 1. Continue metoprolol 2. Continue Eliquis 3. Avoid electrolyte imbalances. 4. Encouraged to be out of bed, incentive spirometry. 5. She has a followup appointment to see Dr. Abel on Saturday. I have asked Dr. Abel to see while she is admitted Thank you for the opportunity to take part in the care of this patient. We will be available on a p.r.n. basis for any other questions or concerns. MD LYNETTE Muller/PAPITO /6:57 PM /7:30 PM SANJAY
[2016-08-08 20:15] VITALS: BP 116/70; PULSE 78; RESP 17; TEMP 99; O2SAT 93
[2016-08-08] MEDS: ATORVASTATIN 20 MG TAB PO SCH ×2 (21:00→21:07)
[2016-08-08 21:06] VITALS: PULSE 98
[2016-08-08] MEDS: ALPRAZolam 0.25 MG TAB PO PRN (21:07)
[2016-08-08 23:45] VITALS: BP 142/74; PULSE 93; RESP 19; TEMP 99.3; O2SAT 92
[2016-08-09] VITALS (8 sets, daily range): BP systolic 98–146; BP diastolic 56–74; PULSE 96–130; RESP 16–20; TEMP 96.8–98.9; O2SAT 92–98
[2016-08-09] MEDS: CEFEPIME INJ 1,000 MG in SODIUM CHLORIDE 0.9% INJ 100 ML IV SCH ×3 (02:33→16:40)
[2016-08-09] MEDS: VANCOMYCIN INJ 1,250 MG in SODIUM CHLOR 0.9% 250 ML INJ 250 ML IV SCH (05:29)
[2016-08-09] MEDS: APIXABAN 2.5 MG TABLET PO SCH ×2 (05:30→16:40)
[2016-08-09 07:46] LABS: HEMATOCRIT 35.5 % (35.0-46.0); MEAN CELL VOLUME 90.6 FL (80.0-100.0); MEAN CORPUSCULAR HEMOGLOBIN 29.9 PG (27.0-34.0); PLATELET COUNT 192 TH/MM3 (150-450); RED BLOOD COUNT 3.92 MIL/MM3 (4.00-5.30); RED CELL DISTRIBUTION WIDTH 15.6 % (11.6-17.2); REVIEW FLAG FINAL; WHITE BLOOD COUNT 11.3 TH/MM3 (4.0-11.0)
[2016-08-09 07:57] LABS: POTASSIUM 3.3 MEQ/L (3.5-5.1)
[2016-08-09] MEDS: PANTOPRAZOLE SOD 20 MG DELAYED RELEASE TAB PO SCH (08:38)
[2016-08-09] MEDS: ESCITALOPRAM OXALATE 10 MG TAB PO SCH (08:38)
[2016-08-09] MEDS: METOPROLOL TARTRATE 100 MG TAB PO SCH ×2 (08:38→21:22)
[2016-08-09] MEDS: SODIUM CHLORIDE 0.9% FLUSH 10 ML FLUSH IV FLUSH SCH ×2 (08:38→21:00)
[2016-08-09] MEDS: LISINOPRIL 10 MG TAB PO SCH (08:38)
--- NOTE | 2016-08-09 13:40 | EKG ---
Date Performed: 08/08/2016 Time Performed: 14:05:27 PTAGE: 86 years EKG: Sinus rhythm MODERATE ST DEPRESSION ABNORMAL ECG Compared to prior tracing no significant change PREVIOUS TRACING : 08/07/2016 09.12 DOCTOR: Mahendra Jo Interpretating Date/Time 08/09/2016 13:37:59
--- NOTE | 2016-08-09 15:30 | HHI.PR ---
Subjective Subjective Remarks no cp no sob no fever no acute changes overnight and son at d, multiple questions asked, update given Review of Systems Constitutional Constitutional Remarks 12 point ROS completed, negative except as noted above Vitals/Results Intake & Output 08/08/16 08/08/16 08/09/16 15:00 23:00 07:00 Intake Total 1020 ml 722 ml 690 ml Balance 1020 ml 722 ml 690 ml Intake Oral 360 ml 240 ml IV Total 1020 ml 362 ml 450 ml # Voids 6 5 # Bowel Movements 1 1 Vital Signs Vital Signs Date Time Temp Pulse Resp B/P Pulse Ox O2 Delivery O2 Flow Rate FiO2 08/09/16 12:14 97.0 110 16 105/74 94 08/09/16 08:36 Nasal Cannula 3.00 08/09/16 08:00 98.7 130 18 136/74 92 08/09/16 06:45 104 08/09/16 06:45 Nasal Cannula 3.00 08/09/16 04:25 98.9 96 20 146/72 95 08/08/16 23:45 99.3 93 19 142/74 92 08/08/16 21:06 98 08/08/16 21:06 93 Nasal Cannula 3.00 08/08/16 20:15 99.0 78 17 116/70 93 08/08/16 16:00 97.9 77 18 135/62 94 CBC/BMP: 08/09/16 0715 08/09/16 0715 Lab Results Laboratory Tests Test 08/09/16 07:15 White Blood Count 11.3 TH/MM3 Red Blood Count 3.92 MIL/MM3 Hemoglobin 11.7 GM/DL Hematocrit 35.5 % Mean Corpuscular Volume 90.6 FL Mean Corpuscular Hemoglobin 29.9 PG Mean Corpuscular Hemoglobin 33.0 % Concent Red Cell Distribution Width 15.6 % Platelet Count 192 TH/MM3 Mean Platelet Volume 8.1 FL Sodium Level 139 MEQ/L Potassium Level 3.3 MEQ/L Chloride Level 109 MEQ/L Carbon Dioxide Level 21.0 MEQ/L Anion Gap 9 MEQ/L Blood Urea Nitrogen 6 MG/DL Creatinine 0.50 MG/DL Estimat Glomerular Filtration 117 ML/MIN Rate Random Glucose 103 MG/DL Calcium Level 9.0 MG/DL Physical Exam General General Appearance: Well Developed, No Acute Distress, Comfortable, Malnourished Eyes Eye Exam: Pupils Equal, Pupils Reactive Ears & Nose Ears & Nose Exam: Nasal Mucosa [place] Throat Throat Exam: Oral Mucosa [place] & Moist Neck Neck Exam: Neck Supple, Trachea Midline Pulmonary Resp Exam: Clear Bilaterally, No Distress Cardiology CV Exam: Regular, Good Perfusion Gastrointestinal/Abdomen GI Exam: Soft, Non-Tender, Bowel Sounds Present, Non-Distended Musculoskeletal MS Exam: Joints Intact Integumentary Skin Exam: Warm, Dry Extremeties Extremities Exam: No Edema, Pedal Pulses Palpable Neurologic Neuro Exam: Alert, Awake, Oriented, Speech Clear, Moving All Extremities, No Focal Deficits Psychiatric Psych Exam: Appropriate Responses VTE Prophylaxis VTE Remarks Eliquis PUD Prophylasis PUD Prophylaxis: Protonix Assessment/Plan Problem List: (1) Sepsis (2) UTI (urinary tract infection) (3) Paroxysmal a-fib (4) Hypertension (5) GERD (gastroesophageal reflux disease) (6) Mild cognitive impairment (7) Anxiety (8) Hypokalemia Assessment/Plan continue with abx cultures negative so far no more fever no source of fever Stools for C. difficile negative consult ID for evaluation, recurrent UTI replace K follow electrolytes continue IVF afib RVR, improving, likely elevated due to sepsis Cardiology input appreciated continue BB continue Eliquis for DVT prophylaxis PT eval and tx Labs in am D/W RN D/W pt and family D/W Dr. Higgins This patient was seen by myself and Dr. Higgins, this note is written on his behalf Problem Qualifiers (1) Sepsis: Qualified Code: A41.9 - Sepsis, due to unspecified organism (2) UTI (urinary tract infection): Qualified Code: N39.0 - Urinary tract infection without hematuria, site unspecified (3) Hypertension: Qualified Code: I10 - Essential hypertension (4) GERD (gastroesophageal reflux disease): Qualified Code: K21.9 - Gastroesophageal reflux disease, esophagitis presence not specified Tamika Jim August 09, 2016 15:30
--- NOTE | 2016-08-09 20:36 | MB ---
cc: ANNA MARIE DOMINGUEZ MD DATE OF CONSULTATION 08/09/[address] Higgins REASON FOR CONSULTATION Recurrent UTI. HISTORY OF PRESENT ILLNESS This is an 86-year-old white female who was brought to the emergency department on 08/07 after a near syncopal episode. The patient's is at the bedside. He reports that the patient collapsed. She was at the time sitting on the commode and when she got off she was very weak and collapsed and was brought to emergency department for evaluation. He reports that she was having episodes of shaking chills a day prior. He states that she was shaking and could not stop and then she would get very hot. She was brought to the emergency department for evaluation. The patient was day eight of 10 into antibiotic for a UTI when she was brought to emergency department. She reportedly had urine culture positive and her primary care physician put her on antibiotics for 10 days. She reports that it was an antibiotic she was taking twice a day, but they cannot provide me the name of the antibiotic. She had no diarrhea prior to admission but had one episode today and after that she had a bowel movement which was not loose. The patient had elevated temperature of 103.1 on admission and her white blood cell count was elevated at 13.2. Urinalysis showed one white cell with occasional bacteria. Urine culture was performed and came back with no growth. Blood cultures have no growth in two days. The patient states that she feels better. Her temperature improved after starting antibiotics and she now has normal temperature. She has had a few low temperatures below 97 degrees. She is currently awake and alert. Her tells me that she was confused the last couple of nights and he was called in at 1:00 a.m. because she was confused. The patient says that she is never angry, but she was noted to be yelling at the nurses. She denies headache. She reports to me that she had nausea around the time when she collapsed, but she denies cough or shortness of breath. The patient was found to have pleural effusion on chest x-ray and there was patchy opacity at the lung bases, left greater than the right. Her mentions to me that she has had two thoracenteses in recent months including May of 2016. The pleural fluid was not sent for culture at that time. The patient denies cough or sputum production or shortness of breath. Stool for C-difficile was tested in May 2016 and again on this admission and both are negative. The patient tells me she is very weak. She has physical therapy at home. She has been in the hospital on several occasions since January,. She had a CVA in January. PAST MEDICAL HISTORY 1. Hyperlipidemia, 2. Depression, 3. Atrial fibrillation status post cardiac ablation 4. Gastroesophageal reflux disease, 5. Hypertension, 6. Hiatal hernia 7. Dementia, 8. CVA 9. Hernia repair, 10. Bilateral cataract removal, 11. Hysterectomy, 12. Tonsillectomy, 13. Ovarian cyst resection. ALLERGIES ASPIRIN LACTOSE. MEDICATIONS 1. Vancomycin, 2. Cefepime, 3. Eliquis 4. Lipitor 5. Xanax. 6. Norvasc. 7. Lexapro. 8. Prinivil. 9. Lopressor. 10. Protonix. SOCIAL HISTORY The patient has been for 66 years. No tobacco use. Positive wine on a daily basis. No illicit drugs. FAMILY HISTORY Noncontributory. REVIEW OF SYSTEMS Pertinent as mentioned in the history of present illness. The patient denies back pain. She notes that she has a very tiny amount of burning after she urinates. PHYSICAL EXAMINATION GENERAL: This is a frail female who is in no acute distress. She is awake, alert and oriented. VITAL SIGNS: Temperature 97.6, BP 99/66, respirations 69, heart rate 113. HEENT: Head reveals bitemporal wasting. The patient has sunken periorbital areas. Extraocular movements grossly intact, pupils reactive to light. No icterus. Oropharynx moist mucosa. No visible lesions. NECK: Supple without adenopathy. No swelling. LUNGS: Diminished breath sounds throughout. HEART: Irregular rate and rhythm. No murmurs. No rubs. No gallops. ABDOMEN: Bowel sounds present, diminished bowel sounds, soft, nontender. RECTAL: Not performed. EXTREMITIES: Diffuse muscle wasting. Multiple bruises including below both knees and the left elbow and the left shoulder has ecchymosis from bruising. The patient also has other areas of ecchymosis of the upper extremities. No edema. No clubbing. No cyanosis. SKIN: No diffuse rash. NEUROLOGIC: Nonfocal. PSYCHIATRIC: The patient is calm and cooperative. LABORATORY DATA WBC 11.3, platelets 192, creatinine 0.50, BUN six, sodium 139. Liver function tests normal. IMPRESSION 1. Fever and leukocytosis on admission in patient who had symptoms including chills. The patient now has tachycardia in addition to decreased blood pressure. She did have episode of altered mental status which has cleared. 2. Leukocytosis decreasing 3. Recent urinary tract infection. Current urinary culture is negative. 4. Patchy opacity at the lung bases. The patient, however, has no cough or sputum production or shortness of breath RECOMMENDATIONS 1. Continue vancomycin 2. Continue cefepime 3. Monitor the vital signs since she may be exhibiting signs of sepsis with elevated heart rate and lower blood pressure than previous days. 4. Monitor blood cultures until final 5. Get the patient out of bed to the chair and initiate physical therapy. 7. Monitor her clinical status. There is no clear source of the sepsis since the urine culture is negative. There is no other clear foci besides the lungs at this time. but she is not exhibiting clinical signs of pneumonia. Thank you for this consultation. The patient's progress will be monitored and further recommendations will be made on followup if necessary. Anna Marie Dominguez MD FD/ /6:22 PM /8:14 PM SANJAY
[2016-08-09] MEDS: ATORVASTATIN 20 MG TAB PO SCH (21:21)
[2016-08-09] MEDS: SODIUM CHLOR 0.9% 1000 ML INJ 1,000 ML IV SCH (21:23)
[2016-08-10] VITALS (9 sets, daily range): BP systolic 88–129; BP diastolic 65–73; PULSE 74–101; RESP 17–18; TEMP 96.2–97; O2SAT 92–98
[2016-08-10] MEDS: CEFEPIME INJ 1,000 MG in SODIUM CHLORIDE 0.9% INJ 100 ML IV SCH ×2 (03:38→11:38)
[2016-08-10] MEDS ORDERED: PHARMACY ORDERED LAB ONE (05:45)
[2016-08-10] MEDS: VANCOMYCIN INJ 1,250 MG in SODIUM CHLOR 0.9% 250 ML INJ 250 ML IV SCH (05:52)
[2016-08-10] MEDS: APIXABAN 2.5 MG TABLET PO SCH ×2 (05:53→17:05)
[2016-08-10] MEDS: SODIUM CHLORIDE 0.9% FLUSH 10 ML FLUSH IV FLUSH SCH ×2 (09:00→20:13)
[2016-08-10] MEDS: METOPROLOL TARTRATE 100 MG TAB PO SCH ×2 (10:21→20:46)
[2016-08-10] MEDS: LISINOPRIL 10 MG TAB PO SCH (10:22)
[2016-08-10] MEDS: PANTOPRAZOLE SOD 20 MG DELAYED RELEASE TAB PO SCH (10:22)
[2016-08-10] MEDS: ESCITALOPRAM OXALATE 10 MG TAB PO SCH (10:22)
--- NOTE | 2016-08-10 10:37 | HHI.PR ---
Subjective Subjective Remarks fell yesterday, missed the bed and slid down to floor no injuries no diarrhea no n/v no abd. pain no cp no sob no fever anxious to go home, "I would like to be discharged tomorrow" at [facility] tele reviewed, afib, HR occ. up to 120s, now 90s Review of Systems Constitutional Constitutional Remarks 12 point ROS completed, negative except as noted above Vitals/Results Intake & Output 08/09/16 08/09/16 08/10/16 15:00 23:00 07:00 Intake Total 480 ml 1261 ml 240 ml Balance 480 ml 1261 ml 240 ml Intake Oral 480 ml 240 ml 240 ml IV Total 1021 ml # Voids 4 2 3 # Bowel Movements 3 0 1 Vital Signs Vital Signs Date Time Temp Pulse Resp B/P Pulse Ox O2 Delivery O2 Flow Rate FiO2 08/10/16 07:59 96.8 100 18 124/69 93 08/10/16 04:00 96.9 101 17 129/73 95 08/10/16 00:00 97.0 97 17 108/65 95 08/09/16 23:00 96.8 100 17 98/56 95 08/09/16 22:00 110 17 104/64 98 08/09/16 20:40 96.8 124 17 115/69 96 08/09/16 20:30 Nasal Cannula 3.00 08/09/16 16:41 Nasal Cannula 3.00 08/09/16 16:41 97.6 113 16 99/66 93 08/09/16 12:14 97.0 110 16 105/74 94 CBC/BMP: 08/09/16 0715 08/09/16 0715 Lab Results Laboratory Tests Test 08/10/16 05:45 Vancomycin Level Trough 5.9 MCG/ML Physical Exam General General Appearance: Well Developed, No Acute Distress, Comfortable, Malnourished Eyes Eye Exam: Pupils Equal, Pupils Reactive Ears & Nose Ears & Nose Exam: Nasal Mucosa [place] Throat Throat Exam: Oral Mucosa [place] & Moist Neck Neck Exam: Neck Supple, Trachea Midline Pulmonary Resp Exam: Clear Bilaterally, No Distress Cardiology CV Exam: Regular, Good Perfusion, Tachycardia Gastrointestinal/Abdomen GI Exam: Soft, Non-Tender, Bowel Sounds Present, Non-Distended Musculoskeletal MS Exam: Joints Intact Integumentary Skin Exam: Warm, Dry Extremeties Extremities Exam: No Edema, Pedal Pulses Palpable Neurologic Neuro Exam: Alert, Awake, Oriented, Speech Clear, Moving All Extremities, No Focal Deficits Psychiatric Psych Exam: Appropriate Responses VTE Prophylaxis VTE Remarks Eliquis PUD Prophylasis PUD Prophylaxis: Protonix Assessment/Plan Problem List: (1) Sepsis (2) UTI (urinary tract infection) (3) Paroxysmal a-fib (4) Hypertension (5) GERD (gastroesophageal reflux disease) (6) Mild cognitive impairment (7) Anxiety (8) Hypokalemia Assessment/Plan continue with abx cultures negative so far no more fever no source of fever Stools for C. difficile negative consult ID for evaluation, input appreciated. Recommends to continue on abx for now follow electrolytes continue IVF afib RVR, improving, likely elevated due to sepsis Cardiology input appreciated continue BB continue Eliquis for DVT prophylaxis PT eval and tx eng PO intake, Ensure improving, no fever fall precautions, bed alarm. Pt counselled about asking for help CM consult for DC planning, HHC with PT Hopefully dc tomorrow D/W RN D/W pt and family D/W Dr. Higgins This patient was seen by myself and Dr. Higgins, this note is written on his behalf Problem Qualifiers (1) Sepsis: Qualified Code: A41.9 - Sepsis, due to unspecified organism (2) UTI (urinary tract infection): Qualified Code: N39.0 - Urinary tract infection without hematuria, site unspecified (3) Hypertension: Qualified Code: I10 - Essential hypertension (4) GERD (gastroesophageal reflux disease): Qualified Code: K21.9 - Gastroesophageal reflux disease, esophagitis presence not specified Tamika Jim [facility] August 10, 2016 10:37
--- NOTE | 2016-08-10 14:27 | HHI.PR ---
Subjective Remarks Feeling better Objective Vital Signs Date Time Temp Pulse Resp B/P Pulse Ox O2 Delivery O2 Flow Rate FiO2 08/10/16 12:06 96.2 74 18 88/68 92 08/10/16 07:59 96.8 100 18 124/69 93 08/10/16 04:00 96.9 101 17 129/73 95 08/10/16 00:00 97.0 97 17 108/65 95 08/09/16 23:00 96.8 100 17 98/56 95 08/09/16 22:00 110 17 104/64 98 08/09/16 20:40 96.8 124 17 115/69 96 08/09/16 20:30 Nasal Cannula 3.00 08/09/16 16:41 Nasal Cannula 3.00 08/09/16 16:41 97.6 113 16 99/66 93 I/O 08/09/16 08/09/16 08/09/16 08/10/16 08/10/16 08/10/16 07:00 15:00 23:00 07:00 15:00 23:00 Intake Total 690 ml 480 ml 1261 ml 240 ml Balance 690 ml 480 ml 1261 ml 240 ml Intake Oral 240 ml 480 ml 240 ml 240 ml IV Total 450 ml 1021 ml # Voids 5 4 2 3 1 # Bowel Movements 1 3 0 1 1 Result Diagram: 08/09/1615 08/09/16 0715 Imaging Alert, fully oriented Lungs: ventilated Heart: S1, S2 irregular Abdomen: soft, no mass Ext: no edema Last Impressions Head CT 08/07/16104 Signed Impressions: Service Date/Time: Sunday, August 07, 2016 01:50 - CONCLUSION: 1. No acute hemorrhage or mass effect. 2. Stable atrophy and ventricular prominence. 3. Periventricular white matter lucencies which remain most consistent with chronic small vessel ischemic change. 4. Small area of infarction in the left cerebellar hemisphere. Jamin Yost MD Chest X-Ray 08/07/16104 Signed Impressions: Service Date/Time: Sunday, August 07, 2016 01:09 - CONCLUSION: No significant change. Patchy opacity remains at the lung bases left greater than right with probable left effusion. Jamin Yost MD Current Medications Medications (Trade) Dose Ordered Sig/Luis A Route Start Time Stop Time Status Last Admin (NS Flush) 2 ml UNSCH PRN IV FLUSH 08/07/16 07:00 (NS Flush) 2 ml BID IV FLUSH 08/07/16 09:00 08/09/16 21:00 (Tylenol) 650 mg Q4H PRN PO 08/07/16 07:00 08/08/16 02:49 (Zofran Inj) 4 mg Q6H PRN IVP 08/07/16 07:00 Naloxone HCl 0.4 mg 0.4 mg UNSCH PRN IV 08/07/16 07:00 Pharmacy Profile Note 0 ml @ 0 mls/hr UNSCH OTHER 08/07/16 07:00 (Maxipime Inj/NS Inj) 100 ml @ 200 mls/hr Q8H IV 08/07/16 11:00 08/10/16 11:38 (Norvasc) 10 mg DAILY PO 08/07/16 09:00 08/10/16 10:21 (Eliquis) 2.5 mg BID@06,18 PO 08/07/16 18:00 08/10/16 05:53 (Lipitor) 20 mg HS PO 08/07/16 21:00 08/09/16 21:21 (Lexapro) 10 mg DAILY PO 08/07/16 09:00 08/10/16 10:22 (Prinivil) 10 mg DAILY PO 08/07/16 09:00 08/10/16 10:22 (Lopressor) 100 mg BID PO 08/07/16 09:00 08/10/16 10:21 (Protonix) 20 mg DAILY PO 08/07/16 09:00 08/10/16 10:22 Alprazolam 0.25 mg 0.25 mg Q8H PRN PO 08/07/16 09:15 08/07/16 21:48 (Vancomycin Inj/ NS 250 ml Inj) 250 ml @ 250 mls/hr Q12H IV 08/10/16 18:00 Miscellaneous Information SPECIFIC LAB TO BE ELLA... ONCE ONCE .XX 08/11/16 17:45 08/11/16 17:46 Assessment and Plan Problem List: (1) Shortness of breath Status: Acute Plan: Significantly improve (2) Paroxysmal a-fib Status: Acute Plan: In atrial fibrillation. most likely in the setting of sepsis. Previous ablation in March. On anticoagulation. Meds cannot be uptitrated or added due to hypotension. Will continue with current management. If necessary, cardioversion as OP Can be DH when ok with the managing team I will be available on a PRN basis Esperanza Abel MD August 10, 2016 14:27
--- NOTE | 2016-08-10 14:43 | HHI.IDPN ---
Note Infectious Disease Note Patient feels weak but is okay otherwise. RN reports that she fell yesterday while being put in the bedside chair. Ambulation to bathroom with assistance. Denies pain. No diarrhea, Afebrile. Cultures negative. Patient was on Macrobid prior to admission. PAST MEDICAL HISTORY 1. Hyperlipidemia, 2. Depression, 3. Atrial fibrillation status post cardiac ablation 4. Gastroesophageal reflux disease, 5. Hypertension, 6. Hiatal hernia 7. Dementia, 8. CVA 9. Hernia repair, 10. Bilateral cataract removal, 11. Hysterectomy, 12. Tonsillectomy, 13. Ovarian cyst resection. ALLERGIES ASPIRIN LACTOSE. MEDICATIONS 1. Vancomycin, 2. Cefepime, MEDICATION. Medications (Trade) Dose Ordered Sig/Luis A Route PRN Reason Start Time Stop Time Status Last Admin Dose Admin Sodium Chloride (NS Flush) 2 ml UNSCH PRN IV FLUSH FLUSH AFTER USING IV ACCESS 08/07/16 07:00 Sodium Chloride (NS Flush) 2 ml BID IV FLUSH 08/07/16 09:00 08/09/16 21:00 Acetaminophen (Tylenol) 650 mg Q4H PRN PO TEMP > 100.4 08/07/16 07:00 08/08/16 02:49 Ondansetron HCl (Zofran Inj) 4 mg Q6H PRN IVP NAUSEA OR VOMITING 08/07/16 07:00 Naloxone HCl 0.4 mg 0.4 mg UNSCH PRN IV SEE LABEL COMMENTS 08/07/16 07:00 Pharmacy Profile Note 0 ml @ 0 mls/hr UNSCH OTHER 08/07/16 07:00 Cefepime HCl/ Sodium Chloride (Maxipime Inj/NS Inj) 100 ml @ 200 mls/hr Q8H IV 08/07/16 11:00 08/10/16 11:38 Amlodipine Besylate (Norvasc) 10 mg DAILY PO 08/07/16 09:00 08/10/16 10:21 Apixaban (Eliquis) 2.5 mg BID@06,18 PO 08/07/16 18:00 08/10/16 05:53 Atorvastatin Calcium (Lipitor) 20 mg HS PO 08/07/16 21:00 08/09/16 21:21 Escitalopram Oxalate (Lexapro) 10 mg DAILY PO 08/07/16 09:00 08/10/16 10:22 Lisinopril (Prinivil) 10 mg DAILY PO 08/07/16 09:00 08/10/16 10:22 Metoprolol Tartrate (Lopressor) 100 mg BID PO 08/07/16 09:00 08/10/16 10:21 Pantoprazole Sodium (Protonix) 20 mg DAILY PO 08/07/16 09:00 08/10/16 10:22 Alprazolam 0.25 mg 0.25 mg Q8H PRN PO MILD ANXIETY 08/07/16 09:15 08/07/16 21:48 Vancomycin HCl/ Sodium Chloride (Vancomycin Inj/ NS 250 ml Inj) 250 ml @ 250 mls/hr Q12H IV 08/10/16 18:00 Miscellaneous Information SPECIFIC LAB TO BE ... ONCE ONCE .XX 08/11/16 17:45 08/11/16 17:46 PHYSICAL EXAMINATION GENERAL: No acute distress. She is awake, alert and oriented. HEENT: Extraocular movements grossly intact, pupils reactive to light. No icterus. Oropharynx moist mucosa. No visible lesions. NECK: Supple without adenopathy. No swelling. LUNGS: Diminished breath sounds. HEART: Irregular rate and rhythm. No murmurs. No rubs. No gallops. ABDOMEN: Bowel sounds present, diminished bowel sounds, soft, nontender. EXTREMITIES: Diffuse muscle wasting. Multiple bruises including below both knees and the left elbow and the left shoulder has ecchymosis from bruising. The patient also has other areas of ecchymosis of the upper extremities. No edema, clubbing or cyanosis. SKIN: No diffuse rash. NEUROLOGIC: Nonfocal. PSYCHIATRIC: Calm and cooperative. IMPRESSION 1. Fever and leukocytosis on admission in patient who had symptoms including chills. The patient now has tachycardia in addition to decreased blood pressure. She did have episode of altered mental status which has cleared. Temp improved. 2. Leukocytosis Improved. She has been on a steroid taper before admission - down to one time a week per her . 3. Recent urinary tract infection. Current urinary culture is negative. 4. Patchy opacity at the lung bases. The patient, however, has no cough or sputum production or shortness of breath RECOMMENDATIONS 1. Stop vancomycin 2. Stop cefepime 3. Give PO cefepime x 3 days. I will sign off now. Rolf Smart MD August 10, 2016 14:43
[2016-08-10] MEDS: ALPRAZolam 0.25 MG TAB PO PRN ×2 (17:05→22:37)
[2016-08-10] MEDS ORDERED: VANCOMYCIN 1,000 MG/NS 250 ML IV SCH ×2 (18:00)
[2016-08-10] MEDS: ATORVASTATIN 20 MG TAB PO SCH (20:13)
[2016-08-10] MEDS: CEFUROXIME AXETIL 500 MG TAB PO SCH (20:13)
[2016-08-10] MEDS ORDERED: SODIUM CHLOR 0.9% 1000 ML INJ 1,000 ML IV SCH (22:45)
[2016-08-11] VITALS: BP 112/69; PULSE 90; RESP 17; TEMP 97; O2SAT 96
[2016-08-11 04:00] VITALS: BP 137/89; PULSE 95; RESP 16; TEMP 97.6; O2SAT 95
[2016-08-11] MEDS: APIXABAN 2.5 MG TABLET PO SCH (05:30)
[2016-08-11] MEDS: ALPRAZolam 0.25 MG TAB PO PRN (05:31)
[2016-08-11 08:00] VITALS: BP 98/80; PULSE 115; RESP 16; TEMP 96.3; O2SAT 94
[2016-08-11] MEDS: CEFUROXIME AXETIL 500 MG TAB PO SCH (08:39)
[2016-08-11] MEDS: PANTOPRAZOLE SOD 20 MG DELAYED RELEASE TAB PO SCH (08:40)
[2016-08-11] MEDS: METOPROLOL TARTRATE 100 MG TAB PO SCH (08:40)
[2016-08-11] MEDS: ESCITALOPRAM OXALATE 10 MG TAB PO SCH (08:40)
[2016-08-11] MEDS: LISINOPRIL 10 MG TAB PO SCH (08:40)
[2016-08-11] MEDS: SODIUM CHLORIDE 0.9% FLUSH 10 ML FLUSH IV FLUSH SCH (08:45)
[2016-08-11] MEDS ORDERED: CEFT500T3 PO (09:50)
--- NOTE | 2016-08-11 09:50 | HHI.DCPOC ---
Discharge Care Plan Diagnosis: (1) Sepsis Your Health Problems Are: Difficulty with ADL Goals to Promote Your Health * To prevent worsening of your condition and complications * To maintain your health at the optimal level Directions to Meet Your Goals Take your medications as prescribed Follow your dietary instruction Follow activity as directed Keep your appointments as scheduled Take your immunizations and boosters as scheduled If your symptoms worsen call your PCP, if no PCP go to Urgent Care Center or Emergency Room Smoking is Dangerous to Your Health. Avoid second hand smoke Call the 24-hour hour crisis hotline for domestic abuse at Tamika Jim. [facility] August 11, 2016 09:50
--- NOTE | 2016-08-11 10:47 | HHI.FF ---
Face to Face Verification Diagnosis: (1) Sepsis (2) Mild cognitive impairment (3) Paroxysmal a-fib (4) Shortness of breath (5) Hypertension (6) GERD (gastroesophageal reflux disease) (7) UTI (urinary tract infection) (8) Anxiety (9) Frequent falls Physical Therapy Order: Evaluate and Treat Home Health Nursing Order: Medical education Nursing assessment with vital signs I have seen patient Eleanor Alfonso on 08/11/16. My clinical findings support the need for the requested home health care services because: Deconditioned w/ increased weakness Limited ability to care for self Need for psychosocial assistance Impaired cognition/judgement High risk of falls I certify that my clinical findings support that this patient is homebound because: Impaired cognitive ability/safety Unsteady gait/balance Tamika Jim [facility] August 11, 2016 10:47
--- NOTE | 2016-08-11 10:52 | HHI.PR ---
Subjective Subjective Remarks stable overnight anxious to go home feels weak but overall improved no cough no sputum no cp no sob no fever eating okay states he has private caregiver as well Review of Systems Constitutional Constitutional Remarks 12 point ROS completed, negative except as noted above Vitals/Results Intake & Output 08/10/16 08/10/16 08/11/16 15:00 23:00 07:00 Intake Total 680 ml 477 ml 240 ml Balance 680 ml 477 ml 240 ml Intake Oral 680 ml 477 ml 240 ml # Voids 6 2 2 # Bowel Movements 3 0 1 Vital Signs Vital Signs Date Time Temp Pulse Resp B/P Pulse Ox O2 Delivery O2 Flow Rate FiO2 08/11/16 04:00 97.6 95 16 137/89 95 08/11/16 00:00 97.0 90 17 112/69 96 08/10/16 21:00 Nasal Cannula 3.00 08/10/16 20:00 96.8 93 17 126/71 98 08/10/16 16:00 96.2 84 18 105/65 93 08/10/16 12:06 96.2 74 18 88/68 92 08/10/16 12:00 96.2 74 18 88/68 92 CBC/BMP: 08/09/16 0715 08/09/16 0715 Physical Exam General General Appearance: Well Developed, No Acute Distress, Comfortable, Malnourished Eyes Eye Exam: Pupils Equal, Pupils Reactive Ears & Nose Ears & Nose Exam: Nasal Mucosa Short Pump Throat Throat Exam: Oral Mucosa Short Pump & Moist Neck Neck Exam: Neck Supple, Trachea Midline Pulmonary Resp Exam: Clear Bilaterally, No Distress Cardiology CV Exam: Regular, Good Perfusion, Tachycardia Gastrointestinal/Abdomen GI Exam: Soft, Non-Tender, Bowel Sounds Present, Non-Distended Musculoskeletal MS Exam: Joints Intact Integumentary Skin Exam: Warm, Dry Extremeties Extremities Exam: No Edema, Pedal Pulses Palpable Neurologic Neuro Exam: Alert, Awake, Oriented, Speech Clear, Moving All Extremities, No Focal Deficits Psychiatric Psych Exam: Appropriate Responses VTE Prophylaxis VTE Remarks Eliquis PUD Prophylasis PUD Prophylaxis: Protonix Assessment/Plan Problem List: (1) Sepsis (2) UTI (urinary tract infection) (3) Paroxysmal a-fib (4) Hypertension (5) GERD (gastroesophageal reflux disease) (6) Mild cognitive impairment (7) Anxiety (8) Hypokalemia Assessment/Plan continue with abx no more fever no source of fever Stools for C. difficile negative consult ID for evaluation, input appreciated. Cleared for discharge. Recommended Ceftin x 3 days. Cultures negative. improved, no fever, no WBC elevation. afib RVR, improving, likely elevated due to sepsis Cardiology input appreciated continue BB evaluated per Dr. Abel yesterday, may need another cardioversion. Pt. is to f/ u as OP for further work up. Meds can't be adjusted more, BP marginal cleared for dc continue Eliquis for DVT prophylaxis PT eval and tx enc PO intake, Ensure fall precautions, bed alarm. Pt counselled about asking for help CM consult for DC planning, HHC with PT Discharge home today with HHC F/U Dr. Abel, PCP Diet-hearth healthy, plus Ensure Activity-as tolerated, fall precautions D/W RN D/W pt and family D/W Dr. Higgins D/W CM This patient was seen by myself and Dr. Higgins, this note is written on his behalf Discharge Minutes: 45 Problem Qualifiers (1) Sepsis: Qualified Code: A41.9 - Sepsis, due to unspecified organism (2) UTI (urinary tract infection): Qualified Code: N39.0 - Urinary tract infection without hematuria, site unspecified (3) Hypertension: Qualified Code: I10 - Essential hypertension (4) GERD (gastroesophageal reflux disease): Qualified Code: K21.9 - Gastroesophageal reflux disease, esophagitis presence not specified Tamika Jim August 11, 2016 10:52
--- NOTE | 2016-08-11 11:09 | HHI.DS ---
Discharge Summary Admission Date August 07, 2016 at 05:50 Discharge Date: August 11, 2016 Admitting Diagnosis sepsis (1) Sepsis (2) UTI (urinary tract infection) (3) GERD (gastroesophageal reflux disease) (4) Hypertension (5) Mild cognitive impairment (6) Paroxysmal a-fib (7) Frequent falls (8) Hypokalemia (9) Valvular disease CBC/BMP: 08/09/16 0715 08/09/16 0715 Significant Findings Laboratory Tests Test 08/09/16 07:15 White Blood Count 11.3 TH/MM3 (4.0-11.0) Red Blood Count 3.92 MIL/MM3 (4.00-5.30) Potassium Level 3.3 MEQ/L (3.5-5.1) Chloride Level 109 MEQ/L (98-107) Blood Urea Nitrogen 6 MG/DL (7-18) Pt Condition on Discharge: Stable Discharge Disposition: Disch w/ Home Health Serv Discharge Instructions DIET: Follow Instructions for: Heart Healthy Diet Activities you can perform: Weight Bearing as Lou Other Activity Instructions: fall precautions Follow up Referrals: Cardiology with Esperanza Abel MD PCP Follow-up New Medications: Cefuroxime (Ceftin) 500 Mg Tab 500 MG PO Q12HR Infection #6 Ref 0 TAB Continued Medications: Amlodipine (Norvasc) 10 Mg Tab 10 MG PO DAILY htn #30 TAB Apixaban (Eliquis) 2.5 Mg Tab 2.5 MG PO BID@06,18 afib and stroke #60 Ref 0 TAB Atorvastatin (Atorvastatin) 20 Mg Tab 20 MG PO HS Cholesterol Management Ref 0 TAB Escitalopram (Lexapro) 10 Mg Tab 10 MG PO DAILY #30 Ref [address] (Nexium) 20 Mg Capdr 20 MG PO DAILY Ref 0 CAP Lisinopril (Lisinopril) 5 Mg Tab 10 MG PO DAILY htn #60 TAB Metoprolol Tartrate (Metoprolol Tartrate) 100 Mg Tab 100 MG PO BID #60 Ref 0 TAB Tamika Jim August 11, 2016 11:09
[2016-08-11 12:00] VITALS: BP 108/69; PULSE 98; RESP 15; TEMP 96.1; O2SAT 96
[2016-08-11 13:00] VITALS: PULSE 77
--- NOTE | 2016-08-11 16:30 | HHI.DS ---
Discharge Summary Admission Date August 07, 2016 at 05:50 Discharge Date: August 11, 2016 Admitting Diagnosis sepsis (1) Sepsis (2) UTI (urinary tract infection) (3) GERD (gastroesophageal reflux disease) (4) Hypertension (5) Mild cognitive impairment (6) Paroxysmal a-fib (7) Frequent falls (8) Hypokalemia (9) Valvular disease CBC/BMP: 08/09/16 0715 08/09/16 0715 Significant Findings Laboratory Tests Test 08/09/16 07:15 White Blood Count 11.3 TH/MM3 (4.0-11.0) Red Blood Count 3.92 MIL/MM3 (4.00-5.30) Potassium Level 3.3 MEQ/L (3.5-5.1) Chloride Level 109 MEQ/L (98-107) Blood Urea Nitrogen 6 MG/DL (7-18) Imaging Last Impressions Head CT 08/07/16104 Signed Impressions: Service Date/Time: Sunday, August 07, 2016 01:50 - CONCLUSION: 1. No acute hemorrhage or mass effect. 2. Stable atrophy and ventricular prominence. 3. Periventricular white matter lucencies which remain most consistent with chronic small vessel ischemic change. 4. Small area of infarction in the left cerebellar hemisphere. Jamin Yost MD Chest X-Ray 08/07/16104 Signed Impressions: Service Date/Time: Sunday, August 07, 2016 01:09 - CONCLUSION: No significant change. Patchy opacity remains at the lung bases left greater than right with probable left effusion. Jamin Yost MD Hospital Course This is a pleasant 86 year-old female with multiple medical comorbidities who came to the emergency room complaining of generalized weakness. She stated that she has been feeling bad for several days but this has continued to get worse. She was seen by her regular physician for a urinary tract infection approximately 8 to 9 days ago and was given antibiotics for ten days. She had taken eight days of p.o. antibiotics but had continued to have fevers, chills, malaise but last p.m. collapsed in the bathroom, she was so weak. The patient has noted some increase in confusion even though she already has a diagnosis of dementia. The patient denied passing out, denied any other falls. She did have decreased appetite with some nausea but no vomiting. The patient usually is incontinent and wears diapers, she did complain of some diarrhea. She denied any chest pain, no acute shortness of breath, no abdominal pain no headaches. Patient had been recently admitted in May with pleural effusions and required thoracentesis. DIAGNOSTIC DATA: White blood count 13.2, Red blood cell 4.43. Hemoglobin 13.2, hematocrit 40.2, platelet count is 212, neutrophil auto count percentage 87.8, lymphocytes 5.5. All others are normal. Diff are normal. PT/INR is 1.2, chemistry on admission; sodium of 132, potassium 2.9, chloride 98. Carbon dioxide 24.1, anion gap 10, blood urea nitrogen 10, creatinine 0.69, glomerular filtration rate 81, random glucose 147, lactic acid is 2, troponin is negative at 0.02. All other chemistries are normal. IMAGING STUDIES: Show chest x-ray to have no significant change from patchy opacities in the left lung base, greater then the right, CT of the head shows no acute hemorrhage or mass effect, stable atrophy. Small area of infarct on the left cerebellar hemisphere. Pt. was admitted for: (1) Sepsis (2) UTI (urinary tract infection) (3) Paroxysmal a-fib (4) Hypertension (5) GERD (gastroesophageal reflux disease) (6) Mild cognitive impairment (7) Anxiety (8) Hypokalemia During the course of the hospitalization the following events took place: Patient put on IV fluids, continued on antibiotics. No actual source of infection was found. Chest x-ray was negative. Sools for C. difficile negative Patient remained afebrile, WBC stable. Less weak. consulted ID for evaluation, input appreciated. Recommended to continue antibiotics and follow cultures. Cleared for discharge. Recommended Ceftin x 3 days. Patient was noted with afib RVR Cardiology consulted, possible elevation of heart rate possibly secondary to sepsis. continue BB Evaluated per Dr. Abel, pt. may need another cardioversion. However he recommended to do this as outpatient. He did not want to adjust her medications have patient's blood pressure was sometimes low 100s. cleared for dc Home medications were reviewed, initiated as indicated continued Eliquis for DVT prophylaxis PT eval and tx, recommended physical therapy at home Patient encouraged to increase by mouth intake, Ensure given Patient's strength did improve some, she was instructed to ask for assistance when getting out of bed. Fall precautions were instituted Patient with possible alcohol use at home, patient was counseled about use by attending CM consult for DC planning, [facility] with PT Pt stable for dc. Pt. and family agreeable. Discharge home with [facility] Instructed to: F/U Dr. Abel, PCP Diet-hearth healthy, plus Ensure Activity-as tolerated, fall precautions Pt Condition on Discharge: Stable Discharge Disposition: Disch w/ Home Health Serv Discharge Instructions DIET: Follow Instructions for: Heart Healthy Diet Activities you can perform: Weight Bearing as Lou Other Activity Instructions: fall precautions Follow up Referrals: Cardiology with Esperanza Abel MD PCP Follow-up New Medications: Cefuroxime (Ceftin) 500 Mg Tab 500 MG PO Q12HR Infection #6 Ref 0 TAB Continued Medications: Amlodipine (Norvasc) 10 Mg Tab 10 MG PO DAILY htn #30 TAB Apixaban (Eliquis) 2.5 Mg Tab 2.5 MG PO BID@06,18 afib and stroke #60 Ref 0 TAB Atorvastatin (Atorvastatin) 20 Mg Tab 20 MG PO HS Cholesterol Management Ref 0 TAB Escitalopram (Lexapro) 10 Mg Tab 10 MG PO DAILY #30 Ref [address] (Nexium) 20 Mg Capdr 20 MG PO DAILY Ref 0 CAP Lisinopril (Lisinopril) 5 Mg Tab 10 MG PO DAILY htn #60 TAB Metoprolol Tartrate (Metoprolol Tartrate) 100 Mg Tab 100 MG PO BID #60 Ref 0 TAB Tamika Jim August 11, 2016 16:30
[2016-08-11] MEDS ORDERED: PHARMACY ORDERED LAB ONE (17:45)
== END 2016-08-11 16:19 | disposition home health service (06) | DRG 872 ==
LOC: NEPC 00:56 → NEDA 05:50 → N06B 09:35 → N06A 08-09 17:49
PROVIDERS: ADMIT Specialist; ATTEND Specialist
DX: A41.9 Sepsis, unspecified organism (principal); N39.0 Urinary tract infection, site not specified; E87.1 Hypo-osmolality and hyponatremia; G30.9 Alzheimer's disease, unspecified; F02.80 Dementia in other diseases classified elsewhere, unspecified severity, without behavioral disturbance, psychotic disturbance, mood disturbance, and anxiety; I48.0 Paroxysmal atrial fibrillation; E87.6 Hypokalemia; K21.0 Gastro-esophageal reflux disease with esophagitis; H91.90 Unspecified hearing loss, unspecified ear; K44.9 Diaphragmatic hernia without obstruction or gangrene; I10 Essential (primary) hypertension; E78.5 Hyperlipidemia, unspecified; R32 Unspecified urinary incontinence; R29.6 Repeated falls; Z79.02 Long term (current) use of antithrombotics/antiplatelets; F32.9 Major depressive disorder, single episode, unspecified; Z86.73 Personal history of transient ischemic attack (TIA), and cerebral infarction without residual deficits; F41.9 Anxiety disorder, unspecified
CPT/HCPCS: 70450; 71010; 80048; 80053; 80202; 81001; 82550; 83605; 84484; 85025; 85027; 85610; 85730; 87040; 87086; 87493; 93005; 96361; 96365; 96375; J0692; J2405; J3370; J3480; J7030; J7050

== ENCOUNTER 2016-08-29 14:00 | Inpatient (IN) | payer MEDICARE, OTHER ==
[~2016-08-29] VITALS: Ht 157.5 cm; Wt 49.4 kg
[2016-08-29] VITALS (14 sets, daily range): BP systolic 93–134; BP diastolic 53–74; PULSE 82–128; RESP 18–24; TEMP 97.4–97.6; O2SAT 81–97
[~2016-08-29 14:00] MED LIST changes: +ATOR20TA15 PO; -BUDE9TAB PO; +CEFT500T3 PO; -FURO1TAB62 PO; -POTA-243 PO; -PRAV10TA PO
--- NOTE | 2016-08-29 14:22 | PD ---
Physical Exam Time Seen by Provider: 14:15 Narrative 86yo F c/o SOB, weakness, sweats for the past couple months with worsening over the past few days. Was here last month and admitted for sepsis per . VS rechecked in triage. Patient seen in triage. VS reviewed. Awaiting bed placement. Data Data Last Documented VS Vital Signs Date Time Temp Pulse Resp B/P Pulse Ox O2 Delivery O2 Flow Rate FiO2 08/29/16 14:02 97.6 97 20 81 Room Air MDM Supervised Visit with GEOFF: Rebecca Harrington Aug 29, 2016 14:22
[2016-08-29] MEDS ORDERED: SODIUM CHLORID 0.9% 500 ML INJ 500 ML IV ONE (14:45)
--- NOTE | 2016-08-29 14:53 | PD ---
HPI Chief Complaint: Respiratory Symptoms Time Seen by Provider: 14:34 Travel History International Travel<30 days: No Contact w/Intl Traveler<30days: No Traveled to known affect area: No History of Present Illness HPI 86 y/o female presents with weakness, SOA, nausea over past couple days. states she finished her antibiotic for her urinary tract infection today. He states he's not sure what it was. He states that she got it here. He states that she just got discharged for sepsis and is worried that she has at again. The patient states she feels weak all over. She denies any other concurrent complaints. Severity is progressive. patient is poor historian [facility] Past Medical History Narrative Medical per records Hx Anticoagulant Therapy: Yes Alzheimer's Disease: Yes Atrial Fibrillation: Yes Anxiety: Yes Depression: Yes Heart Rhythm Problems: Yes (RVR, AFib) Cardiac Catheterization: Yes (ablation) Cardiovascular Problems: Yes High Cholesterol: Yes (resolved) Chemotherapy: No Cerebrovascular Accident: Yes Dementia: Yes (slight) Diminished Hearing: Yes Endocrine: No GERD: Yes Genitourinary: No Hiatal Hernia: Yes Hypertension: Yes Musculoskeletal: Yes (generalized weakness) Neurologic: Yes Reproductive: No Respiratory: Yes Immunizations Current: Yes Menopausal: Yes Past Surgical History Narrative Surgical pre records Abdominal Surgery: Yes (HERNIA ) Section: Yes Eye Surgery: Yes (removal of cataracts - bilateral) Gynecologic Surgery: Yes (removal of ovarian cyst) Hysterectomy: Yes Tonsillectomy: Yes Other Surgery: Yes (DERMOID CYST REMOVED AT 46 YEARS OF AGE, ) Social History 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) Tobacco Use: No Substance Use: No Allergies-Medications (Allergen,Severity, Reaction): Coded Allergies: Aspirin (Verified Allergy, Mild, Heartburn, 08/07/16) Reported Meds & Prescriptions Reported Meds & Active Scripts Active Norvasc (Amlodipine Besylate) 10 Mg Tab 10 Mg PO DAILY Lisinopril 5 Mg Tab 10 Mg PO DAILY Eliquis (Apixaban) 2.5 Mg Tab 2.5 Mg PO BID@ Reported Atorvastatin (Atorvastatin Calcium) 20 Mg Tab 20 Mg PO HS Lexapro (Escitalopram Oxalate) 10 Mg Tab 10 Mg PO HS Nexium (Esomeprazole DR) 20 Mg Capdr 20 Mg PO DAILY Metoprolol Tartrate 100 Mg Tab 100 Mg PO BID Review of Systems ROS Limitations: Poor Historian Except as stated in HPI: all other systems reviewed are Neg Physical Exam Exam Limitations: Poor Historian Narrative GENERAL: Well-nourished, well-developed patient. SKIN: Warm and dry. HEAD: Normocephalic and atraumatic. EYES: No injection or drainage. ENT: No nasal drainage noted. NECK: Supple, trachea midline. CARDIOVASCULAR: irregular rate and rhythm RESPIRATORY: Breath sounds equal bilaterally at apices. No accessory muscle use. GASTROINTESTINAL: Abdomen soft, non-tender, nondistended. NEUROLOGICAL: Awake and alert. moves all extremities. Normal speech. Data Data Last Documented VS Vital Signs Date Time Temp Pulse Resp B/P Pulse Ox O2 Delivery O2 Flow Rate FiO2 08/29/16 15:06 125 18 109/53 96 Room Air 08/29/16 14:02 97.6 Orders Magnesium (Mg) (08/29/16 14:34) Phosphorus (Po4) (08/29/16 14:34) Complete Blood Count With Diff (08/29/16 14:34) Comprehensive Metabolic Panel (08/29/16 14:34) Ckmb (Isoenzyme) Profile (08/29/16 14:34) Troponin I (08/29/16 14:34) Urinalysis - C+S If Indicated (08/29/16 14:34) Act Partial Throm Time (Ptt) (08/29/16 14:34) Prothrombin Time / Inr (Pt) (08/29/16 14:34) B-Type Natriuretic Peptide (08/29/16 14:34) Chest, Single Ap (08/29/16 ) Electrocardiogram (08/29/16 ) Iv Access Insert/Monitor (08/29/16 14:34) Ecg Monitoring (08/29/16 14:34) Oximetry (08/29/16 14:34) Lactic Acid (08/29/16 14:34) Blood Culture (08/29/16 14:34) Sodium Chlorid 0.9% 500 Ml Inj (Ns 500 M (08/29/16 14:45) Cath For Specimen (08/29/16 16:01) Piperacil-Tazo 4.5 Gm Premix (Zosyn 4.5 (08/29/16 16:11) Sodium Chlor 0.9% 1000 Ml Inj (Ns 1000 M (08/29/16 16:15) Diltiazem Inj (Cardizem Inj) (08/29/16 16:30) Admit Order (Ed Use Only) (08/29/16 16:47) Labs Laboratory Tests Test 08/29/16 08/29/16 14:45 16:25 White Blood Count 8.5 TH/MM3 Red Blood Count 4.04 MIL/MM3 Hemoglobin 12.6 GM/DL Hematocrit 37.5 % Mean Corpuscular Volume 92.8 FL Mean Corpuscular Hemoglobin 31.2 PG Mean Corpuscular Hemoglobin 33.6 % Concent Red Cell Distribution Width 15.4 % Platelet Count 260 TH/MM3 Mean Platelet Volume 8.9 FL Neutrophils (%) (Auto) 62.4 % Lymphocytes (%) (Auto) 22.7 % Monocytes (%) (Auto) 10.0 % Eosinophils (%) (Auto) 4.4 % Basophils (%) (Auto) 0.5 % Neutrophils # (Auto) 5.3 TH/MM3 Lymphocytes # (Auto) 1.9 TH/MM3 Monocytes # (Auto) 0.9 TH/MM3 Eosinophils # (Auto) 0.4 TH/MM3 Basophils # (Auto) 0.0 TH/MM3 CBC Comment DIFF FINAL Differential Comment Prothrombin Time 12.8 SEC Prothromb Time International 1.2 RATIO Ratio Activated Partial 28.0 SEC Thromboplast Time Sodium Level 138 MEQ/L Potassium Level 3.5 MEQ/L Chloride Level 103 MEQ/L Carbon Dioxide Level 23.5 MEQ/L Anion Gap 12 MEQ/L Blood Urea Nitrogen 14 MG/DL Creatinine 0.72 MG/DL Estimat Glomerular Filtration 77 ML/MIN Rate Random Glucose 99 MG/DL Lactic Acid Level 2.1 mmol/L Calcium Level 9.1 MG/DL Phosphorus Level 3.8 MG/DL Magnesium Level 2.3 MG/DL Total Bilirubin 0.7 MG/DL Aspartate Amino Transf 47 U/L (AST/SGOT) Alanine Aminotransferase 64 U/L (ALT/SGPT) Alkaline Phosphatase 80 U/L Total Creatine Kinase 39 U/L Troponin I LESS THAN 0.02 NG/ML B-Type Natriuretic Peptide 728 PG/ML Total Protein 7.3 GM/DL Albumin 3.4 GM/DL Urine Color YELLOW Urine Turbidity CLEAR Urine pH 6.0 Urine Specific [place] 1.027 Urine Protein 30 mg/dL Urine Glucose (UA) NEG mg/dL Urine Ketones NEG mg/dL Urine Occult Blood NEG Urine Nitrite NEG Urine Bilirubin NEG Urine Urobilinogen 2.0 MG/DL Urine Leukocyte Esterase NEG Urine RBC LESS THAN 1 /hpf Urine WBC 3 /hpf Urine Squamous Epithelial 1 /hpf Cells Urine Hyaline Casts 29 /lpf Urine Mucus MOD /lpf Microscopic Urinalysis Comment CULT NOT INDICATED MDM Medical Decision Making Medical Screen Exam Complete: Yes Emergency Medical Condition: Yes Medical Record Reviewed: Yes (pmh confirmed, d/c on cefitin) Interpretation(s) CBC & BMP Diagram 08/29/16 14:45 EKG is A. fib at 120 without STEMI criteria with mild ST depression diffusely Last 24 hours Impressions Chest X-Ray 08/29/16 0000 Signed Impressions: Service Date/Time: Monday, August 29, 2016 15:51 - CONCLUSION: 1. Left basilar atelectasis and effusion. Raudel Gutierres MD Differential Diagnosis UTI, anemia, renal failure, pneumonia, sepsis Narrative Course Will check blood work, urinalysis, chest x-ray and monitor Labs reveal elevated lactate. We'll check catheter UA specimen given recent UTI as source of sepsis. We'll cover with Zosyn and give IV fluid hydration. Patient and updated and will admit, will give additional fluid and give small dose of 10 mg of Cardizem for A. fib RVR systolic blood pressure of 109 and tachycardia in the 120s Sepsis Criteria SIRS Criteria (2 or more): Heart rate over 90 Sepsis Criteria (SIRS+source): Infect source susp/known Severe Sepsis (+one): Lactate >2 Physician Communication Physician Communication dr davey agrees to admit Diagnosis Primary Impression: Atrial fibrillation with RVR Additional Impression: Lactic acidosis Tram Valentine MD Aug 29, 2016 14:53
[2016-08-29 15:20] LABS: AUTOMATED NEUTROPHIL # 5.3 TH/MM3 (1.8-7.7); BASOPHIL % 0.5 % (0.0-2.0); EOSINOPHIL # 0.4 TH/MM3 (0-0.4); EOSINOPHIL % 4.4 % (0.0-4.0); HEMATOCRIT 37.5 % (35.0-46.0); HEMO FLAGS DIFF FINAL; LYMPH % 22.7 % (9.0-44.0); LYMPHOCYTE # 1.9 TH/MM3 (1.0-4.8); MEAN CELL VOLUME 92.8 FL (80.0-100.0); MEAN CORPUSCULAR HEMOGLOBIN 31.2 PG (27.0-34.0); MEAN CORPUSCULAR HGB CONC 33.6 % (32.0-36.0); NEUT % 62.4 % (16.0-70.0); PLATELET COUNT 260 TH/MM3 (150-450); RED BLOOD COUNT 4.04 MIL/MM3 (4.00-5.30); RED CELL DISTRIBUTION WIDTH 15.4 % (11.6-17.2); WHITE BLOOD COUNT 8.5 TH/MM3 (4.0-11.0)
[2016-08-29 15:40] LABS: INTERNATIONAL NORMALIZED RATIO 1.2 RATIO; PROTHROMBIN TIME - PATIENT 12.8 SEC (9.8-11.6)
[2016-08-29 15:41] LABS: ALT (GPT) 64 U/L (10-53); ANION GAP 12 MEQ/L (5-15); AST (GOT) 47 U/L (15-37); BICARBONATE 23.5 MEQ/L (21.0-32.0); BLOOD UREA NITROGEN 14 MG/DL (7-18); CHLORIDE 103 MEQ/L (98-107); GLOMERULAR FILTRATION RATE 77 ML/MIN (>89); MAGNESIUM 2.3 MG/DL (1.5-2.5); POTASSIUM 3.5 MEQ/L (3.5-5.1); SODIUM (NA) 138 MEQ/L (136-145)
[2016-08-29 15:57] LABS: ALKALINE PHOSPHATASE 80 U/L (45-117); TOTAL BILIRUBIN ADULT 0.7 MG/DL (0.2-1.0)
--- NOTE | 2016-08-29 16:05 | RADRPT ---
EXAM DATE/TIME: 08/29/2016 15:51 [facility] COMPARISON: CHEST SINGLE AP, August 07, 2016, 1:09. INDICATIONS : Short of breath, palpitations. MEDICAL HISTORY : A-fib. SURGICAL HISTORY : None. ENCOUNTER: Initial ACUITY: 1 day PAIN SCORE: 0/10 LOCATION: Bilateral chest FINDINGS: The heart is mildly enlarged. There is minimal left basilar effusion and atelectasis. There are chron ic interstitial changes throughout both lungs. These changes appear stable compared to previous dated 08/07/16. The visualized bony structures are grossly intact. CONCLUSION: 1. Left basilar atelectasis and effusion. Raudel Gutierres MD on August 29, 2016 at 16:02 Board Certified Radiologist. This report was verified electronically.
[2016-08-29 16:06] LABS: CREATINE KINASE 39 U/L (26-192)
[2016-08-29] MEDS ORDERED: PIPERACIL-TAZO 4.5 GM PREMIX 100 ML IV STA (16:11)
[2016-08-29] MEDS ORDERED: SODIUM CHLOR 0.9% 1000 ML INJ 1,000 ML IV ONE (16:15)
[2016-08-29] MEDS ORDERED: DILTIAZEM HCL 25 MG/5 ML VIAL IV ONE (16:30)
[2016-08-29 16:42] LABS: BLOOD, URINE NEG (NEG); COMMENT (UR) CULT NOT INDICATED; CULTURE IF INDICATED CULT NOT INDICATED; GLUCOSE,URINE NEG (NEG); HYALINE CAST, URINE 29 /lpf (RARE); KETONE, URINE NEG (NEG); MUCUS URINE MOD /lpf (OCC); NITRITE,URINE NEG (NEG); SQUAMOUS EPITHELIAL CELL URINE 1 /hpf (0-5); URINE COLOR YELLOW (YELLW/STRAW)
[2016-08-29] MEDS ORDERED: NALOXONE HCL 0.4 MG/ML AMP IV PRN (17:00)
[2016-08-29] MEDS ORDERED: ACETAMINOPHEN 325 MG TAB PO PRN (17:00)
[2016-08-29] MEDS ORDERED: SODIUM CHLORIDE 0.9% FLUSH 10 ML FLUSH IV FLUSH PRN (17:00)
[2016-08-29] MEDS: PIPERACIL-TAZO 3.375 GM PREMIX 50 ML IV SCH (18:00)
--- NOTE | 2016-08-29 19:33 | MH ---
cc: WILLIAM DE PAZ MD DATE OF ADMISSION 08/29/2016 DATE OF 1930 Travel in the last 30 days is none. CHIEF COMPLAINT Shortness of breath and tachycardia. HISTORY OF PRESENT ILLNESS This is a pleasant 86-year-old white female who has had multiple hospital admissions since January of 2016. The patient had a stroke during that period of time and has had significant history of atrial fibrillation, atrial flutter, uncontrolled heart rate, as well as falls, generalized debility and left pleural effusion. The patient currently is complaining of some nausea without vomiting, tachycardia which has been controlled with IV Cardizem, mild heavy chest pain midsternal that seems to wax and wane. The patient denies any headache. No current diarrhea or constipation but does note generalized fatigue, malaise and some shortness of breath. Her devoted and son are currently with her at her bedside. The patient is awake. She is alert but she is pleasantly confused over person, situation and time. She does have does have a history of TIAs, CVA and probable dementia. The patient recently had a UTI which was treated with p.o. antibiotics. She did finish her course of treatment but now is feeling weak again. PAST MEDICAL HISTORY Includes: 1. Atrial fibrillation. 2. Alzheimer's disease. 3. Anxiety. 4. Depression. 5. Uncontrolled atrial fibrillation. 6. Hyperlipidemia. 7. Cerebrovascular accident. 8. Dementia. 9. Noted to be slight [id number]. 10. Gastroesophageal reflux disease. 11. Hiatal hernia. 12. Hypertension. 13. Generalized weakness. 14. Dizziness with falls. 15. Recent urinary tract infection. PAST SURGICAL HISTORY 1. Hernia repair. 2. section. 3. Bilateral cataracts. 4. Removal of ovarian cyst. 5. Hysterectomy. 6. Tonsillectomy. 7. Dermoid cyst removed at that age of 46. 8. Pleural effusion. 9. ___. ALLERGIES ASPIRIN. MEDICATIONS Reported medications: 1. Norvasc. 2. Lisinopril. 3. Eliquis. 4. Atorvastatin. 5. Lexapro. 6. Nexium. 7. Metoprolol. SOCIAL HISTORY The patient is , currently lives with her , has a supportive son that assists his parents. The patient denies any tobacco or alcohol use but does consume a couple of glasses of wine daily. REVIEW OF SYSTEMS Due to the patient's poor historian, most of the information including her symptoms is being relayed per the . She is noted to be positive for the things mentioned in the HPI which include generalized weakness and malaise, nausea but no emesis, pleasant confusion. She does note some dizziness when standing and debility which has worsened over the past 6 months. Otherwise systems are negative and unremarkable. PHYSICAL EXAMINATION VITAL SIGNS: Temperature is 97.6, pulse labile between 97-125, respiratory rate 18-20. Blood pressure initially in the ER was 93/73. After fluid bolus and heart rate controlled with IV Cardizem, 109/53 and 105/73. O2 sat initially in the ER was 81, currently 93% on room air. GENERAL: Thin, elderly white female looks to be a little younger than her stated age, resting in the bed. She is alert, pleasantly confused. Pale mucous membranes. Pale, thin skin turgor. Warm and dry. HEENT: Atraumatic, normocephalic. BARBER at 2. Mucous membranes slightly dry. NECK: Thin, supple. CARDIOVASCULAR: S1-S2, irregular rate and rhythm. No peripheral edema noted. LUNGS: The lung roth are essentially clear anteriorly and posteriorly with no wheezes or rhonchi. She does have some decreased breath sounds in her bases, left is more decreased than the right. ABDOMEN: Flat, soft, nontender, nondistended. Active bowel sounds but soft. MUSCULOSKELETAL: Moves her extremities with purpose. She can overcome resistance in her lower extremities. Upper extremities are fairly equal although the patient seems to note more weakness of the left side than the right. SKIN: Pale, warm and dry. NEUROLOGIC: Pleasantly confused. Talkative. Tongue is midline. PSYCHIATRIC: Mild anxiety noted over current hospital stay. Hopes to go home very soon. Speech is clear and understandable. LABORATORY DATA Diagnostic data, WBC count of 8.5, RBC 4.04, hemoglobin 12.6, hematocrit 37.5, platelet count 260. Monocyte elevation at 10. Eosinophils 4.4. Further difs are negative. PT INR is 1.2. Chemistry, sodium 138, potassium 3.5, chloride 103, carbon dioxide 23.5. Anion gap 12, BUN 14, creatinine 0.72, GFR 77, random glucose 99, lactic acid 2.1. Other abnormals are AST 47, ALT is 64. Troponin is less than 0.02. BNP is 728. Total protein 7.3, albumin 3.4. Urine is negative for glucose, ketones, occult blood, nitrites, bilirubin, leukocyte esterase. Her urine is yellow and clear. Specific gravity 1.027, pH 6.0. Moderate amount of mucus but no culture and sensitivity is indicated. IMAGING The imaging studies show chest x-ray to have a left basilar atelectasis and effusion. ASSESSMENT/PLAN 1. Lactic acid sepsis, unknown reason. 2. Atrial fibrillation uncontrolled with rapid ventricular response. 3. History of Alzheimer's with current mild cognitive impairment. 4. History of hypertension currently with some hypotension. 5. Gastroesophageal reflux disease. 6. Recent urinary tract infection. 7. Possible pneumonia. The patient does have a pleural effusion and bibasilar atelectasis on her left lower lobe. Our plan is to admit inpatient status. The patient is currently having to be maintained on IV Cardizem for her rate control. We will monitor her vital signs every one to four and as warranted. Keep her on cardiac monitoring and telemetry. Heart healthy diet. The patient received a cardiology consult in the emergency room for their expert opinion for her uncontrolled rate and rhythm. She also received Zosyn and sodium chloride bolus to stabilize her blood pressure. We will redraw labs in the morning for continuous monitoring. Pantoprazole for PUD prophylaxis. Eliquis for DVT prophylaxis. The patient does have a pleural effusion and bibasilar atelectasis on her left lower lobe. We will monitor her on Zosyn and monitor her labs, her O2 saturations and her vital signs. Her plan of care has been discussed in detail with her and son as well as her. We will give the patient approximately 24 hours and have physical therapy eval and treat and continued to work on her mobility and strengthening. To my knowledge the patient is full code, full aggressive care and we will follow. Dictated by: HOMER Addison MD SELMA Ledezma/PAPITO /6:25 PM /6:51 PM
[2016-08-29] MEDS ORDERED: DILTIAZEM 125 MG/NS 100 ML IV SCH ×2 (21:15)
[2016-08-29] MEDS ORDERED: DILTIAZEM HCL 25 MG/5 ML VIAL IV PUSH PRN (21:15)
[2016-08-29] MEDS: SODIUM CHLORIDE 0.9% FLUSH 10 ML FLUSH IV FLUSH SCH (21:45)
[2016-08-29] MEDS: ALPRAZolam 0.25 MG TAB PO PRN (22:18)
[2016-08-29] MEDS: APIXABAN 2.5 MG TABLET PO SCH (22:36)
[2016-08-29] MEDS: ATORVASTATIN 20 MG TAB PO SCH (22:36)
[2016-08-29] MEDS: SODIUM CHLOR 0.9% 1000 ML INJ 1,000 ML IV SCH (22:37)
[2016-08-30] VITALS (11 sets, daily range): BP systolic 110–138; BP diastolic 61–81; PULSE 76–124; RESP 16–20; TEMP 97.4–98.1; O2SAT 91–97
[2016-08-30] MEDS: PIPERACIL-TAZO 3.375 GM PREMIX 50 ML IV SCH ×4 (00:25→16:24)
[2016-08-30] MEDS: ACETAMINOPHEN 325 MG TAB PO PRN ×2 (01:25→16:29)
[2016-08-30] MEDS: ALPRAZolam 0.25 MG TAB PO PRN ×2 (03:44→21:32)
[2016-08-30] MEDS: SODIUM CHLOR 0.9% 1000 ML INJ 1,000 ML IV SCH ×2 (06:09→16:29)
[2016-08-30] MEDS: APIXABAN 2.5 MG TABLET PO SCH ×2 (06:22→16:24)
[2016-08-30 06:24] LABS: AUTOMATED NEUTROPHIL # 3.4 TH/MM3 (1.8-7.7); BASOPHIL # 0.1 TH/MM3 (0-0.2); BASOPHIL % 0.8 % (0.0-2.0); EOSINOPHIL # 0.4 TH/MM3 (0-0.4); EOSINOPHIL % 5.8 % (0.0-4.0); HEMATOCRIT 32.5 % (35.0-46.0); HEMO FLAGS DIFF FINAL; LYMPH % 30.4 % (9.0-44.0); MEAN CELL VOLUME 92.1 FL (80.0-100.0); MEAN CORPUSCULAR HEMOGLOBIN 31.3 PG (27.0-34.0); MONO % 10.3 % (0.0-8.0); NEUT % 52.7 % (16.0-70.0); PLATELET COUNT 217 TH/MM3 (150-450); RED BLOOD COUNT 3.53 MIL/MM3 (4.00-5.30); RED CELL DISTRIBUTION WIDTH 15.5 % (11.6-17.2); WHITE BLOOD COUNT 6.5 TH/MM3 (4.0-11.0)
[2016-08-30 07:06] LABS: BICARBONATE 23.2 MEQ/L (21.0-32.0); POTASSIUM 3.2 MEQ/L (3.5-5.1)
[2016-08-30] MEDS: SODIUM CHLORIDE 0.9% FLUSH 10 ML FLUSH IV FLUSH SCH ×2 (09:09→21:26)
[2016-08-30] MEDS: PANTOPRAZOLE SOD 20 MG DELAYED RELEASE TAB PO SCH (09:09)
[2016-08-30] MEDS: METOPROLOL TARTRATE 50 MG TAB PO SCH ×2 (09:09→21:31)
--- NOTE | 2016-08-30 11:04 | MB ---
cc: OLIVA GUTIERREZ MD DATE OF CONSULTATION 08/30/2016 REASON FOR CONSULTATION Atrial fibrillation with rapid ventricular rate. HISTORY OF PRESENT ILLNESS Ms. Alfonso is a patient of my partner, Dr. Wolff and Dr. Abel. She does have a history of atrial fibrillation and is status post ablation in 2011 and March of 2016. She has had recurrent episodes and has been following up with Dr. Abel for consideration of an AV node ablation with pacemaker implantation per the . The patient is a poor historian and unable to really give any history. The patient's indicates that the patient has had eight hospitalizations since January for infections. The most recent was a UTI and she has just finished her antibiotics. The patient, at this point, was having difficulties with shortness of breath, nausea and general fatigue. She was found to be in atrial fibrillation with rapid ventricular rate. The does indicate that she is compliant with medication as he dispenses them. ALLERGIES ASPIRIN OUTPATIENT MEDICATIONS Include: 1. Amlodipine 10 mg a day 2. Lisinopril 10 mg a day 3. Eliquis 2.5 mg b.i.d. 4. Atorvastatin 20 mg q.h.s. 5. Lexapro 6. Nexium 7. Metoprolol 100 mg b.i.d. SOCIAL HISTORY The patient does have wine. She is . REVIEW OF SYSTEMS AND FAMILY HISTORY Unable. PAST MEDICAL HISTORY Significant for: 1. Atrial fibrillation status post ablation. 2. Aortic regurgitation 3. Aortic stenosis with a mean gradient of 19 mmHg in May 2016 4. Mild CAD by catheterization in 2007 5. CVA 6. Dyspnea on exertion 7. GERD 8. Hyperlipidemia 9. Alzheimer's PHYSICAL EXAMINATION CURRENT VITAL SIGNS: Temperature 97.9, 80, 18, 126/69. GENERAL: She is a well-appearing elderly female who is in no apparent distress. NECK: Her neck is free from JVD. LUNGS: The lungs are clear to auscultation. CARDIOVASCULAR: On cardiovascular examination, she has an irregular rhythm. There is a harsh systolic ejection murmur. No rubs or gallops appreciated. ABDOMEN: The abdomen is soft. EXTREMITIES: The extremities are free from edema. LAB VALUES Significant for potassium of 3.2. Her hemoglobin is 11.0. Telemetry - Shows that on arrival she did have atrial fibrillation with RVR to the 140's. She subsequently was placed on Cardizem and the heart rate has dropped to around 100. IMAGING Chest x-ray from 08/29 showed left basilar atelectasis and effusion. IMPRESSION Atrial fibrillation - The patient does have a history of atrial fibrillation with RVR. As per the , she has been compliant with her medications. At this point, I am going to increase her p.o. metoprolol and wean off the Cardizem. Of note, the indicated that in the past she has had multiple break through on the Cardizem. It is reasonable to continue the Amlodipine, although I will decrease the dose to allow for the higher dose of metoprolol. As well, there is a question again of infection during this admission. This certainly could exacerbate her tachycardia. It is reasonable to continue her Eliquis. Hypertension - As above the Amlodipine will be discontinued (remain off). Possible pneumonia - This will be evaluated by the primary team. Oliva Gutierrez M.D. JOSSELIN/MITALI /7:57 AM /10:49 AM
[2016-08-30] MEDS ORDERED: POTASSIUM CHLORIDE 25 MEQ EFFERVESCENT TAB PO ONE (13:00)
--- NOTE | 2016-08-30 14:20 | EKG ---
Date Performed: 08/29/2016 Time Performed: 14:48:45 PTAGE: 86 years EKG: ATRIAL FIBRILLATION WITH RAPID VENTRICULAR RESPONSE NONSPECIFIC ST & T-WAVE ABNORMALITY ABN ORMAL RHYTHM ECG Compared to PREVIOUS TRACING , atrial fibrillation has replaced Sinus rhythm . ST changes are new, consider ischemia. PREVIOUS TRACIN08/08/2016 14.05 DOCTOR: Nam Cardoso Interpretating Date/Time 08/30/2016 14:52:39
--- NOTE | 2016-08-30 14:43 | HHI.PR ---
Subjective Remarks Sitting up in chair More alert, decreased pleasant confusion today asking more appropriate questions Family in room and supportive, explaining in detail her findings and plan of care Supportive care No shortness of breath or pain during my visit Heart rate still uncontrolled (Cheri Zeng) Objective Objective Results - Vital Signs Date Time Temp Pulse Resp B/P Pulse Ox O2 Delivery O2 Flow Rate FiO2 08/30/16 12:00 97.5 91 18 112/75 94 08/30/16 09:27 104 08/30/16 09:27 Nasal Cannula 2.00 08/30/16 08:00 97.7 76 20 126/66 97 08/30/16 04:02 98 08/30/16 04:00 Nasal Cannula 2.00 08/30/16 04:00 97.9 86 18 126/69 92 08/30/16 00:01 124 08/30/16 00:00 Nasal Cannula 2.00 08/30/16 00:00 97.9 92 16 110/61 96 08/29/16 22:40 98 22 124/68 92 08/29/16 22:40 Nasal Cannula 2.00 08/29/16 22:25 100 24 120/74 91 08/29/16 22:25 Nasal Cannula 2.00 08/29/16 22:10 Nasal Cannula 2.00 08/29/16 22:10 93 24 134/70 91 08/29/16 21:55 Nasal Cannula 2.00 08/29/16 21:55 87 24 114/68 92 08/29/16 21:45 125 08/29/16 21:40 Nasal Cannula 2.00 08/29/16 21:40 128 08/29/16 21:40 127 24 112/62 90 08/29/16 20:02 126 08/29/16 19:30 97.4 121 18 118/59 91 08/29/16 19:30 Nasal Cannula 2.00 08/29/16 18:30 82 18 115/73 97 Room Air 08/29/16 17:30 117 18 105/73 93 Room Air 08/29/16 15:06 125 18 109/53 96 Room Air 08/29/16 15:06 124 18 96 Room Air 08/29/16 14:59 96 Room Air I/O 08/29/16 08/29/16 08/29/16 08/30/16 08/30/16 6/8/17 07:00 15:00 23:00 07:00 15:00 23:00 Intake Total 440 ml 707 ml Balance 440 ml 707 ml Intake Oral 440 ml 120 ml IV Total 587 ml # Voids 1 2 # Bowel Movements 0 0 (Cheri Zeng) Result Diagram: 08/30/16 0609 08/30/16 0609 ROS General: Fatigue, Weakness, Other (10 point ROS done positives noted) Pulmonary: Cough (occasional), SOB, Other (duo nebs added) /[employer]: Urgency (mild) Neuro/MS: Confusion (AMS improved today) Skin: Other (thin turgor) (Cheri Zeng) Physical Exam Physical Exam PHYSICAL EXAMINATION GENERAL: This is a elderly female who appears to be in mild distress. She is awake, and up in chair HEAD: Normocephalic without any lesion or mass noted. Facial features appear symmetric. OROPHARYNGEAL: Oropharynx , clear, dry at times NECK: Supple. Trachea midline without deviation. CARDIAC: Irregular rhythm, rate uncontrolled, S1 and S2 are heard LUNGS: Diminished to auscultation bilaterally. Mild expiratory wheeze at times , diminished breath sounds predominantly on the left ABDOMEN: Soft, nontender, no organomegaly or masses. Bowel sounds are heard in all four quadrants. No rebound. No guarding. EXTREMITIES: no edema. Pulses equal bilateral. NEUROLOGICAL: Patient mood and affect mild anxiety for hospital stay. SKIN:Warm and moist, thin turgor (Cheri Zeng) A/P Assessment and Plan 1. Lactic acid sepsis, unknown reason. 2. Atrial fibrillation uncontrolled with rapid ventricular response. 3. History of Alzheimer's with current mild cognitive impairment. 4. History of hypertension currently with some hypotension. 5. Gastroesophageal reflux disease. 6. Recent urinary tract infection. 7. Possible pneumonia. The patient does have a pleural effusion and bibasilar atelectasis on her left lower lobe. Vital signs monitored, heart rate still erratic and uncontrolled between 86 and 124, Cardizem IV low-dose 5 mg/min. Labs reviewed, hemoglobin stable at 11 Hypokalemia, supplemental potassium given with rechecks in the morning Atrial fib uncontrolled, rapid ventricular response still requiring IV Cardizem Appreciate input from cardiology, working on medical management for better control of her heart rate. Alzheimer's dementia, mild to moderate impairment, appears to be more alert today in conversational. Mild altered mental status and pleasant confusion has improved today. Pneumonia, patient has some shortness of breath and cough at times. Will add duo nebs to her regimen. O2, Debility, patient is out of bed today resting in chair, heart rate been monitored with her increased activity. Encouraged to increase mobility and strengthening as much as possible with control of patient's symptoms GERD medical management Recent UTI, treated as an outpatient , current UA negative .patient is able to take by mouth fluids fairly well, appetite fair Lactic acid sepsis, still unknown source, patient is now afebrile, vital signs are stable, no leukocytosis, blood cultures are pending but no growth so far ( Cheri Zeng) Assessment and Plan patient seen and examined agree with above assessment and plan, symptoms likely sec to Afib RVR appreciate cardiology input, meds being adjusted no evidence of sepsis at this time continue empiric Zosyn, until cultures finalized discussed with patient and at bedside discussed with Cheri CORONEL (Lexie Hair MD) Cheri Zeng Aug 30, 2016 14:43 Lexie Hair MD Aug 30, 2016 17:09
[2016-08-30] MEDS: RESP: ALBUTEROL 2.5 MG/IPRATROPIUM 0.5 MG NEB (SCH) NEB ×2 (17:02→22:00)
[2016-08-30] MEDS: ONDANSETRON HCL 4 MG/2 ML VIAL IVP PRN (21:26)
[2016-08-30] MEDS: ATORVASTATIN 20 MG TAB PO SCH (21:27)
[2016-08-31] VITALS (15 sets, daily range): BP systolic 110–150; BP diastolic 60–80; PULSE 86–150; RESP 18–32; TEMP 97.2–98.3; O2SAT 84–94
[2016-08-31] MEDS: PIPERACIL-TAZO 3.375 GM PREMIX 50 ML IV SCH ×4 (02:05→17:12)
[2016-08-31] MEDS: RESP: ALBUTEROL 2.5 MG/IPRATROPIUM 0.5 MG NEB (SCH) NEB ×5 (04:00→22:00)
[2016-08-31] MEDS: ONDANSETRON HCL 4 MG/2 ML VIAL IVP PRN ×2 (05:41→17:11)
[2016-08-31] MEDS: APIXABAN 2.5 MG TABLET PO SCH ×2 (05:44→17:15)
[2016-08-31] MEDS: METOPROLOL TARTRATE 50 MG TAB PO SCH ×2 (09:23→19:45)
[2016-08-31] MEDS: PANTOPRAZOLE SOD 20 MG DELAYED RELEASE TAB PO SCH (09:23)
[2016-08-31] MEDS: SODIUM CHLORIDE 0.9% FLUSH 10 ML FLUSH IV FLUSH SCH ×2 (09:24→20:40)
[2016-08-31] MEDS: SODIUM CHLOR 0.9% 1000 ML INJ 1,000 ML IV SCH (09:24)
[2016-08-31 09:27] LABS: BASOPHIL % 0.5 % (0.0-2.0); EOSINOPHIL # 0.4 TH/MM3 (0-0.4); EOSINOPHIL % 4.7 % (0.0-4.0); HEMATOCRIT 34.8 % (35.0-46.0); HEMO FLAGS DIFF FINAL; LYMPH % 16.7 % (9.0-44.0); LYMPHOCYTE # 1.4 TH/MM3 (1.0-4.8); MEAN CELL VOLUME 94.1 FL (80.0-100.0); MEAN CORPUSCULAR HEMOGLOBIN 29.9 PG (27.0-34.0); MEAN CORPUSCULAR HGB CONC 31.8 % (32.0-36.0); MONO % 7.4 % (0.0-8.0); NEUT % 70.7 % (16.0-70.0); PLATELET COUNT 226 TH/MM3 (150-450); RED CELL DISTRIBUTION WIDTH 15.9 % (11.6-17.2); WHITE BLOOD COUNT 8.5 TH/MM3 (4.0-11.0)
[2016-08-31 09:50] LABS: BICARBONATE 22.2 MEQ/L (21.0-32.0); POTASSIUM 3.5 MEQ/L (3.5-5.1)
[2016-08-31] MEDS: ALPRAZolam 0.25 MG TAB PO PRN (09:57)
--- NOTE | 2016-08-31 10:59 | HHI.PR ---
Subjective Remarks Resting in bed Mild anxiety because had to leave for a few minutes Continues with anorexia and decreased appetite Supportive care Heart rate controlled Objective Objective Results - Vital Signs Date Time Temp Pulse Resp B/P Pulse Ox O2 Delivery O2 Flow Rate FiO2 08/31/16 08:00 101 08/31/16 08:00 Nasal Cannula 2.00 08/31/16 08:00 97.8 86 22 150/71 94 08/31/16 07:32 93 Nasal Cannula 3.00 08/31/16 05:37 Nasal Cannula 2.00 08/31/16 05:00 98.0 88 18 110/68 91 08/31/16 04:03 89 08/31/16 00:02 92 08/31/16 00:00 98.2 96 22 127/60 92 08/30/16 20:08 114 08/30/16 20:00 97.4 108 18 127/81 91 138/62 08/30/16 20:00 Nasal Cannula 2.00 08/30/16 17:05 93 Nasal Cannula 2.00 08/30/16 16:00 98.1 101 18 124/68 93 08/30/16 12:00 97.5 91 18 112/75 94 I/O 08/30/16 08/30/16 08/30/16 08/31/16 08/31/16 08/31/16 07:00 15:00 23:00 07:00 15:00 23:00 Intake Total 707 ml 540 ml 751 ml 1178 ml Balance 707 ml 540 ml 751 ml 1178 ml Intake Oral 120 ml 540 ml 140 ml IV Total 587 ml 611 ml 1178 ml # Voids 2 1 1 2 # Bowel Movements 0 1 0 0 Result Diagram: 08/31/1662208/31/1623 ROS General: Fatigue, Weakness, Other (10 point ROS done positives noted) HEENT: Other (decreased appetite and anorexia) Pulmonary: Cough (occasional), SOB (mild mostly with exertion) GI: N/V (nausea no vomiting) Neuro/MS: Confusion (mild pleasant), Other (anxiety) Physical Exam Physical Exam PHYSICAL EXAMINATION GENERAL: This is a frail elderly female mild anxiety She is awake , []. HEAD: Normocephalic, atraumatic OROPHARYNGEAL: Oropharynx, dry but clear NECK: Supple. CARDIAC: Irregular rhythm controlled rate LUNGS: Low volumes to auscultation bilaterally. Mild decreased breath sounds in bases ABDOMEN: Soft, nontender, bowel sounds soft EXTREMITIES: no edema. Pulses intact NEUROLOGICAL: Patient mood and affect mild anxiety SKIN:Warm, thin turgor Objective Remarks I want my to come back A/P Assessment and Plan 1. Lactic acid sepsis, unknown reason. 2. Atrial fibrillation uncontrolled with rapid ventricular response. 3. History of Alzheimer's with current mild cognitive impairment. 4. History of hypertension currently with some hypotension. 5. Gastroesophageal reflux disease. 6. Recent urinary tract infection. 7. Possible pneumonia. The patient does have a pleural effusion and bibasilar atelectasis on her left lower lobe. Vital signs monitored, heart rate control today less than 100. Cardizem IV low- dose 5 mg/min. Labs reviewed, anemia probably secondary to chronic disease, lactic acid 1.1, resolved acidosis Hypokalemia, supplemental potassium , potassium level pending Atrial fib uncontrolled, controlled ventricular response today. Appreciate input from cardiology, medical management appreciated Alzheimer's dementia, mild to moderate impairment, appears to be more alert today in conversational. Mild altered mental status and pleasant confusion has improved today. Patient continues to have decreased appetite. Ordered chocolate ensure with meals, vanilla if chocolates unavailable, added Megace daily or trial. Possibly secondary to IV antibiotics Pneumonia, patient has some shortness of breath and cough at times. Will add duo nebs to her regimen. O2, Debility, encouraged mobility and strengthening and being out of bed daily. Refusing to get up right now GERD medical management Recent UTI, treated as an outpatient , current UA negative .patient is able to take by mouth fluids fairly well, appetite fair Lactic acid sepsis, still unknown source, patient is now afebrile, vital signs are stable, no leukocytosis, lactic acid level back down to normal range 1.1. No growth from blood cultures Discussed with patient Discussed with family member Discussed with Dr. davey, seen on her behalf Discharge planning once IV Cardizem can be transitioned to by mouth, and patient is medically stable, should be within the next day or 2 Cheri Zeng Aug 31, 2016 10:59
--- NOTE | 2016-08-31 11:00 | PD.CARD.PN ---
Subjective Subjective Remarks Pt without complaints Objective Medications Current Medications Medications (Trade) Dose Ordered Sig/Luis A Route Start Time Stop Time Status Last Admin (NS 1000 ml Inj) 1,000 ml @ 75 mls/hr [id number] IV 08/29/16 16:49 08/31/16 09:24 (NS Flush) 2 ml UNSCH PRN IV FLUSH 08/29/16 17:00 (NS Flush) 2 ml BID IV FLUSH 08/29/16 21:00 08/31/16 09:24 (Tylenol) 650 mg Q4H PRN PO 08/29/16 17:00 (Zofran Inj) 4 mg Q6H PRN IVP 08/29/16 17:00 08/31/16 05:41 Naloxone HCl 0.4 mg 0.4 mg UNSCH PRN IV 08/29/16 17:00 (Zosyn 3.375 Gm Premix) 50 ml @ 100 mls/hr Q6H IV 08/29/16 18:00 08/31/16 05:40 (Eliquis) 2.5 mg BID@06,18 PO 08/29/16 18:00 08/31/16 05:44 (Lipitor) 20 mg HS PO 08/29/16 21:00 08/30/16 21:27 Pantoprazole Sodium 20 mg 20 mg DAILY PO 08/30/16 09:00 08/31/16 09:23 (Cardizem Inj/NS Inj) 125 ml @ 0 mls/hr TITRATE IV 08/29/16 21:15 08/29/16 21:41 (Xanax) 0.25 mg Q6H PRN PO 08/29/16 22:15 08/31/16 09:57 (Tylenol) 650 mg Q4H PRN PO 08/30/16 01:30 08/30/16 16:29 (Lopressor) 150 mg Q12HR PO 08/30/16 09:00 08/31/16 09:23 (Megace) 40 mg DAILY PO 08/31/16 11:00 Vital Signs / I&O Vital Signs Date Time Temp Pulse Resp B/P Pulse Ox O2 Delivery O2 Flow Rate FiO2 08/31/16 08:00 101 08/31/16 08:00 Nasal Cannula 2.00 08/31/16 08:00 97.8 86 22 150/71 94 08/31/16 07:32 93 Nasal Cannula 3.00 08/31/16 05:37 Nasal Cannula 2.00 08/31/16 05:00 98.0 88 18 110/68 91 08/31/16 04:03 89 08/31/16 00:02 92 08/31/16 00:00 98.2 96 22 127/60 92 08/30/16 20:08 114 08/30/16 20:00 97.4 108 18 127/81 91 138/62 08/30/16 20:00 Nasal Cannula 2.00 08/30/16 17:05 93 Nasal Cannula 2.00 08/30/16 16:00 98.1 101 18 124/68 93 08/30/16 12:00 97.5 91 18 112/75 94 I/O 08/30/16 08/30/16 08/30/16 08/31/16 08/31/16 08/31/16 07:00 15:00 23:00 07:00 15:00 23:00 Intake Total 707 ml 540 ml 751 ml 1178 ml Balance 707 ml 540 ml 751 ml 1178 ml Intake Oral 120 ml 540 ml 140 ml IV Total 587 ml 611 ml 1178 ml # Voids 2 1 1 2 # Bowel Movements 0 1 0 0 Physical Exam GENERAL: Well developed, well nourished. No acute distress. HEENT: Jugular venous pressure is normal. CHEST: Lungs clear to auscultation bilaterally. Unlabored respiratory effort. CARDIAC: irregular rate and rhythm without S3, S4, or murmur. ABDOMEN: Soft, nontender, no hepatosplenomegaly. Bowel sounds present. EXTREMITIES: No clubbing, cyanosis, or edema. Laboratory Laboratory Tests Test 08/31/16 06:23 White Blood Count 8.5 TH/MM3 Red Blood Count 3.70 MIL/MM3 Hemoglobin 11.1 GM/DL Hematocrit 34.8 % Mean Corpuscular Volume 94.1 FL Mean Corpuscular Hemoglobin 29.9 PG Mean Corpuscular Hemoglobin 31.8 % Concent Red Cell Distribution Width 15.9 % Platelet Count 226 TH/MM3 Mean Platelet Volume 9.0 FL Neutrophils (%) (Auto) 70.7 % Lymphocytes (%) (Auto) 16.7 % Monocytes (%) (Auto) 7.4 % Eosinophils (%) (Auto) 4.7 % Basophils (%) (Auto) 0.5 % Neutrophils # (Auto) 6.0 TH/MM3 Lymphocytes # (Auto) 1.4 TH/MM3 Monocytes # (Auto) 0.6 TH/MM3 Eosinophils # (Auto) 0.4 TH/MM3 Basophils # (Auto) 0.0 TH/MM3 CBC Comment DIFF FINAL Differential Comment Sodium Level 140 MEQ/L Potassium Level 3.5 MEQ/L Chloride Level 109 MEQ/L Carbon Dioxide Level 22.2 MEQ/L Anion Gap 9 MEQ/L Blood Urea Nitrogen 11 MG/DL Creatinine 0.61 MG/DL Estimat Glomerular Filtration 93 ML/MIN Rate Random Glucose 107 MG/DL Calcium Level 9.1 MG/DL Imaging Last 72 hours Impressions Chest X-Ray 08/29/16 0000 Signed Impressions: Service Date/Time: Saturday, August 29, 2016 15:51 - CONCLUSION: 1. Left basilar atelectasis and effusion. Raudel Gutierres MD Assessment and Plan Assessment and Plan IMPRESSION Atrial fibrillation - episode RVR today 8am just prior to PO metoprolol (still on dilt gtt 5mg/hr) and then back down after am meds, -family report she did not eat this am - stop cardizem gtt, increase metoprolol Hypertension - fair Possible pneumonia - on antibiotic per the primary team. Slime Camacho MD Aug 31, 2016 11:00
[2016-08-31] MEDS ORDERED: METOPROLOL TARTRATE 50 MG TAB PO ONE (11:15)
[2016-08-31] MEDS: MEGESTROL ACETATE 40 MG TAB PO SCH (11:31)
[2016-08-31] MEDS: ACETAMINOPHEN 325 MG TAB PO PRN (19:03)
[2016-08-31] MEDS: ATORVASTATIN 20 MG TAB PO SCH (20:38)
[2016-08-31] MEDS ORDERED: METOPROLOL TARTRATE 50 MG TAB PO SCH (21:00)
[2016-08-31] MEDS ORDERED: DILTIAZEM HCL 25 MG/5 ML VIAL ONE (23:17)
[2016-08-31 23:32] LABS: BLOOD GAS BASE EXCESS -4.2 mmol/L (-2-2); BLOOD GAS CARBOXYHEMOGLOBIN 1.3 % (0-4); BLOOD GAS HCO3 20 mmol/L (22-26); BLOOD GAS METHEMOGLOBIN 0.7 % (0-2); BLOOD GAS O2 HGB SATURATION 89 % (90-100); BLOOD GAS OXYGEN CONTENT 14.5 Vol % (12.0-20.0); BLOOD GAS PCO2 31 mmHg (38-42); BLOOD GAS PO2 63 mmHg (61-120); BLOOD GAS TOTAL HGB 11.5 G/DL (12.0-16.0); TEMP CORR TO 98.6
[2016-08-31 23:33] LABS: CRITICAL VALUE YES; DRAW SITE RT RADIAL; FIO2 100 %; LITER FLOW 15 L/M; NUMBER OF ARTERIAL PUNCTURES 1; STAT YES; ULNAR PULSE PRESENT
--- NOTE | 2016-08-31 23:35 | HHI.PR ---
Addendum to Inpatient Note Addendum Reason: Additional Documentation Additional Information S: Received call from call center at 11:08 PM regarding [facility] in room 1415. Per nurse report, patient was in A. fib with RVR this morning. At shift change around 7 PM, pulse was in the 130s to 140s. Salesforce Consultant increased oral metoprolol today to 200 mg by mouth every 12 hours. Heart rate has been 120s to 130s, with pulse ox around 88% with oxygen by NRB. Salesforce Consultant flying squad salesperson was notified, and he instructed the nurses to notify the resident team. Patient endorses shortness of breath. She denies any chest pain or palpitations or pain anywhere else in her body. She thinks she is in a hospital in [place], [place]. Patient has baseline dementia. O: Vitals: Pulse 120s to 130s, pulse ox 88-91% on NRB Gen.: Elderly, frail woman breathing uncomfortably Cardiovascular: Irregularly irregular pulse Respiratory: Coarse breath sounds bilaterally Extremities: No erythema, calf tenderness, edema. A/P: 86-year-old woman with chronic A. fib presents with shortness of breath in the context of A. fib with RVR noted on telemetry. Diltiazem IV bolus until rate control, and then diltiazem drip Monitor vital signs and cardiac rhythm on telemetry ABG, EKG, chest x-ray Hold IV fluids Patient seen and discussed with Dr. Norris. Jamin Ferrera MD R1 Aug 31, 2016 23:35
[2016-08-31] MEDS ORDERED: DILTIAZEM HCL 25 MG/5 ML VIAL IV ONE (23:45)
--- NOTE | 2016-08-31 23:56 | RADRPT ---
EXAM DATE/TIME: 08/31/2016 23:28 [facility] COMPARISON: CHEST SINGLE AP, August 29, 2016, 15:51. INDICATIONS : Pt having difficulty breathing MEDICAL HISTORY : A-fib SURGICAL HISTORY : None. ENCOUNTER: Subsequent ACUITY: 3 days PAIN SCORE: 6/10 LOCATION: Bilateral chest FINDINGS: 2 AP semierect views of the chest were obtained and now demonstrate new bilateral alveolar opacities in both lungs. This is greatest in the perihilar regions and both lung bases right greater than left. Both costophrenic angles now blunted consistent with effusions. The heart size remains enlarged. The re are multiple overlying electrocardiogram leads. CONCLUSION: New bilateral alveolar infiltrates consistent with pulmonary edema. There is blunting of the costophrenic angles consistent with bilateral effusions. The findings are most consistent wit h congestive heart failure. Jamin Yost MD on August 31, 2016 at 23:52 Board Certified Radiologist. This report was verified electronically.
[2016-09-01] VITALS (11 sets, daily range): BP systolic 112–151; BP diastolic 60–86; PULSE 72–110; RESP 18–25; TEMP 97.3–98.1; O2SAT 90–97
[2016-09-01] MEDS: DILTIAZEM INJ 125 MG in SODIUM CHLORIDE 0.9% INJ 100 ML IV SCH (00:11)
[2016-09-01] MEDS: RESP: ALBUTEROL 2.5 MG/IPRATROPIUM 0.5 MG NEB (SCH) NEB ×4 (04:00→20:57)
[2016-09-01] MEDS: APIXABAN 2.5 MG TABLET PO SCH ×2 (05:41→17:19)
[2016-09-01] MEDS: PIPERACIL-TAZO 3.375 GM PREMIX 50 ML IV SCH ×5 (05:41→23:34)
[2016-09-01] MEDS: PANTOPRAZOLE SOD 20 MG DELAYED RELEASE TAB PO SCH (09:07)
[2016-09-01] MEDS: SODIUM CHLORIDE 0.9% FLUSH 10 ML FLUSH IV FLUSH SCH ×2 (09:07→21:00)
[2016-09-01] MEDS: MEGESTROL ACETATE 40 MG TAB PO SCH (09:07)
[2016-09-01] MEDS: ONDANSETRON HCL 4 MG/2 ML VIAL IVP PRN (09:15)
[2016-09-01] MEDS: METOPROLOL TARTRATE 50 MG TAB PO SCH ×2 (09:40→21:15)
[2016-09-01] MEDS ORDERED: POTASSIUM CHLORIDE 20 MEQ CONTROLLED RELEASE TAB PO ONE (10:15)
--- NOTE | 2016-09-01 10:16 | PD.CARD.PN ---
Subjective Subjective Remarks Present in prior hospital records reviewed. I have spoken to the patient and . She is apparently more with it today and has no cardiac complaints. Her GI symptoms have improved and she has a breakfast. She has no bleeding. Telemetry reveals atrial fibrillation with mildly rapid response. Objective Medications Reviewed Vital Signs / I&O Vital Signs Date Time Temp Pulse Resp B/P Pulse Ox O2 Delivery O2 Flow Rate FiO2 09/01/16 08:05 96 09/01/16 08:00 96 09/01/16 08:00 98.1 88 20 138/80 93 09/01/16 08:00 Partial Non-Rebreather 15.00 09/01/16 04:00 95 Partial Non-Rebreather 15.00 09/01/16 03:42 97.3 72 24 151/81 94 148/86 09/01/16 00:25 97.4 104 24 118/80 95 09/01/16 00:00 Partial Non-Rebreather 15.00 08/31/16 23:38 91 15.00 100 08/31/16 23:38 90 Non-Rebreather 15.00 100 08/31/16 23:27 97.2 91 24 118/72 94 08/31/16 23:03 97.2 150 30 120/80 84 08/31/16 22:10 97.5 121 28 112/71 90 08/31/16 20:16 131 08/31/16 20:00 90 Nasal Cannula 5.00 08/31/16 19:25 97.3 132 32 126/68 90 08/31/16 19:00 Nasal Cannula 4.00 08/31/16 16:00 Nasal Cannula 2.00 08/31/16 16:00 98.0 89 20 144/77 94 08/31/16 15:50 93 Nasal Cannula 3.00 08/31/16 12:00 98.3 92 20 130/63 93 I/O 08/31/16 08/31/16 08/31/16 09/01/16 09/01/16 09/01/16 07:00 15:00 23:00 07:00 15:00 23:00 Intake Total 1178 ml 240 ml 1055 ml 216 ml Balance 1178 ml 240 ml 1055 ml 216 ml Intake Oral 240 ml 0 ml 0 ml IV Total 1178 ml 1055 ml 216 ml # Voids 2 3 3 4 # Bowel Movements 0 1 0 Physical Exam GENERAL: Well-nourished, well-developed patient in no apparent distress. SKIN: Warm and dry. NECK: JVD normal - less than or equal to 5 cm H20. CARDIOVASCULAR: Irregular rate and rhythm without gallops, or rubs. 2/6 mid peaking systolic ejection murmur at the base. RESPIRATORY: Normal breath sounds - equal bilaterally. No accessory muscle use. No wheezes, rales or rubs. PERIPHERY: No cyanosis, or edema. Laboratory Laboratory Tests Test 08/31/16 23:16 Blood Gas Puncture Site RT RADIAL Blood Gas Patient Temperature 98.6 Blood Gas HCO3 20 mmol/L Blood Gas Base Excess -4.2 mmol/L Blood Gas Oxygen Saturation 89 % Arterial Blood pH 7.41 Arterial Blood Partial 31 mmHg Pressure CO2 Arterial Blood Partial 63 mmHg Pressure O2 Arterial Blood Oxygen Content 14.5 Vol % Arterial Blood 1.3 % Carboxyhemoglobin Arterial Blood Methemoglobin 0.7 % Blood Gas Hemoglobin 11.5 G/DL Oxygen Delivery Device Non-Rebreathing Mask Blood Gas Liter Flow 15 L/M Blood Gas Inspired Oxygen 100 % Imaging Last 48 hours Impressions Chest X-Ray 08/31/16 0000 Signed Impressions: Service Date/Time: Wednesday, August 31, 2016 23:28 - CONCLUSION: New bilateral alveolar infiltrates consistent with pulmonary edema. There is blunting of the costophrenic angles consistent with bilateral effusions. The findings are most consistent with congestive heart failure. Jamin Yost MD Assessment and Plan Assessment and Plan Problems: Possible sepsis although workup negative so far. Mild congestive heart failure Atrial fibrillation with rapid response Prior CVA Hypertension Hyperlipidemia Moderate aortic stenosis and aortic insufficiency Recommendations: The patient is on increased dose of metoprolol. Hopefully we will be able to wean down the Cardizem and switch to oral. Replete potassium Eliquis Statins If sepsis is ruled out the patient will most likely have AV shazia ablation with permanent pacemaker with . All questions answered. Lorne Wolff MD Sep 01, 2016 10:15
[2016-09-01] MEDS ORDERED: POTASSIUM CHLORIDE 25 MEQ EFFERVESCENT TAB PO SCH (13:15)
[2016-09-01] MEDS: POTASSIUM CHLORIDE 20 MEQ CONTROLLED RELEASE TAB PO SCH (13:28)
[2016-09-01] MEDS ORDERED: FUROSEMIDE 40 MG/4 ML VIAL IV PUSH ONE (13:30)
--- NOTE | 2016-09-01 13:37 | HHI.PR ---
Subjective Remarks sleeping, drowsy but responds to verbal stimuli on 100% NRB since last pm/Hallicat Cardizem drip , rate controlled. respiratory rate, low volumes color dusky in room. (Cheri Zeng) Objective Objective Results - Vital Signs Date Time Temp Pulse Resp B/P Pulse Ox O2 Delivery O2 Flow Rate FiO2 09/01/16 12:00 97.3 88 18 112/60 93 09/01/16 10:26 97 Non-Rebreather 15.00 100 09/01/16 08:05 96 09/01/16 08:00 96 09/01/16 08:00 98.1 88 20 138/80 93 09/01/16 08:00 Partial Non-Rebreather 15.00 09/01/16 04:00 95 Partial Non-Rebreather 15.00 09/01/16 03:42 97.3 72 24 151/81 94 148/86 09/01/16 00:25 97.4 104 24 118/80 95 09/01/16 00:00 Partial Non-Rebreather 15.00 08/31/16 23:38 91 15.00 100 08/31/16 23:38 90 Non-Rebreather 15.00 100 08/31/16 23:27 97.2 91 24 118/72 94 08/31/16 23:03 97.2 150 30 120/80 84 08/31/16 22:10 97.5 121 28 112/71 90 08/31/16 20:16 131 08/31/16 20:00 90 Nasal Cannula 5.00 08/31/16 19:25 97.3 132 32 126/68 90 08/31/16 19:00 Nasal Cannula 4.00 08/31/16 16:00 Nasal Cannula 2.00 08/31/16 16:00 98.0 89 20 144/77 94 08/31/16 15:50 93 Nasal Cannula 3.00 I/O 08/31/16 08/31/16 08/31/16 09/01/16 09/01/16 09/01/16 07:00 15:00 23:00 07:00 15:00 23:00 Intake Total 1178 ml 240 ml 1055 ml 216 ml Balance 1178 ml 240 ml 1055 ml 216 ml Intake Oral 240 ml 0 ml 0 ml IV Total 1178 ml 1055 ml 216 ml # Voids 2 3 3 4 # Bowel Movements 0 1 0 (Cheri Zeng) Result Diagram: 08/31/1662208/31/16622 ROS General: Fatigue, Weakness Cardiac: Palpitations, Other (afib, Cardizem drip) Pulmonary: Cough (occ.), SOB, Other (new PE) /EDITOR MANAGING NEWSPAPER: Other (new guzman in for I&O) Neuro/MS: Other (lethargic) (Cheri Zeng) Physical Exam Physical Exam PHYSICAL EXAMINATION GENERAL: This is a elderly female resting in the bed with 100% oxygen on. Her respirations have low volumes her color is dusky. According to chest x-ray she has new onset congestive heart failure HEAD: Normocephalic OROPHARYNGEAL: Oropharynx dry NECK: Supple. Trachea midline without deviation. CARDIAC: Irregular rhythm, heart rate controlled for now, has had bouts of tachycardia over the past 24-72 hours, S1 and S2 are heard. Harsh loud systolic murmur, left sternal border LUNGS: Diminished and low volumes to auscultation bilaterally. Bibasilar rales noted ABDOMEN: Soft, nontender EXTREMITIES: No edema, moves her extremities weakly NEUROLOGICAL: Patient is lethargic but does respond to verbal stimuli tongue is midline, speech is slow but clear SKIN: Dusky (Cheri Zeng) A/P Assessment and Plan 1. Lactic acid sepsis, unknown reason. 2. Atrial fibrillation uncontrolled with rapid ventricular response. 3. History of Alzheimer's with current mild cognitive impairment. 4. History of hypertension currently with some hypotension. 5. Gastroesophageal reflux disease. 6. Recent urinary tract infection. 7. Possible pneumonia. The patient does have a pleural effusion and bibasilar atelectasis on her left lower lobe. 8. New Pulmonary edema, CHF Vital signs monitored, currently heart rate is under control in the 80s to 90s, IV Cardizem continues, afebrile Labs reviewed, anemia probably secondary to chronic disease, lactic acidosis has resolved Potassium level III.5, giving extra dose of 20 mEq today since patient is fixed and received IV Lasix. Will recheck her labs in the morning Atrial fib uncontrolled, controlled ventricular response today., Continues Cardizem drip Appreciate input from cardiology, medical management appreciated. Chest x-ray shows new onset of congestive heart failure and pulmonary edema Start Lasix 40 mg IV twice a day, first dose now, Guzman catheter inserted for intensive intake and output, will need to maintain Guzman catheter and to IV Lasix is completed course of treatment Patient's color is dusky, she is currently on 100% nonrebreather mask and has been since Anna Last p.m. Updated patient's on current treatment needed and her general condition. Also discussed with Dr. Kelly, patient is being transferred to the intensive care for close evaluation of her respiratory status as well as her pulmonary edema. Plan in the near future per cardiology notes is for Dr. obregon to see patient Saturday and evaluate for pacemaker and or possible ablation. Alzheimer's dementia, mild to moderate impairment, appears to be more alert today in conversational. Mild altered mental status and pleasant confusion has improved today. Patient continues to have decreased appetite. Ordered chocolate ensure with meals, vanilla if chocolates unavailable, added Megace daily or trial. Possibly secondary to IV antibiotics Patient has loud harsh systolic murmur, will get 2-D echo to evaluate any acute changes. 2-D echo noted to have atrial septal defect, pulmonic regurg, mitral valve regurg, tricuspid regurg, and left pleural effusion. EF is 50-55%, no wall motion abnormalities Labs ordered for in the morning Pneumonia, patient has some shortness of breath and cough at times. Will add duo nebs to her regimen. O2, Debility, maintain bed rest for today and reevaluate after patient's congestive heart failure and pulmonary edema is stabilized. Turn cough and deep breathe, turning every 2 GERD medical management Recent UTI, treated as an outpatient , current UA negative .patient is able to take by mouth fluids fairly well, appetite fair Lactic acid sepsis, still unknown source, patient is now afebrile, vital signs are stable, no leukocytosis, lactic acid level back down to normal range 1.1. No growth from blood cultures Discussed with patient Discussed with family member Discussed with Dr. Kelly seen on his behalf Discharge planning once IV Cardizem can be transitioned to by mouth, and patient is medically stable, should be within the next day or 2 (Cheri Zeng) Assessment and Plan pt is seen & Examined d/w PT & her at bedside d/w Cheri huddleston w above diuresing better now /able to wean O2 down cont current tx fluid restriction cont Diuretics f/u CXR d/w RN cont current tx will f/u (Favian Kelly MD) Cheri Zeng Sep 01, 2016 13:37 Favian Kelly MD Sep 01, 2016 16:15
[2016-09-01] MEDS: ALPRAZolam 0.25 MG TAB PO PRN ×2 (15:00→21:16)
--- NOTE | 2016-09-01 17:17 | ECHRPT ---
Indication: Heart failure, unspecified CONCLUSIONS Normal left ventricular size. Wall thickness is normal. The left ventricular systolic function is low normal with an estimated ejection fraction in the rang e of 50- 55%. No regional wall motion abnormalities are present. The left atrial size is moderately dilated. The right atrial size is moderately dilated. 2 jets of left to right flow are seen across the atrial septum which represent a patent foramen oval e or small atrial septal defect. Mild mitral annular calcification. Moderate mitral valve regurgitation. Severe thickening of the aortic valve leaflets. Mild aortic valve regurgitation. Diffuse calcification of the aortic valve. Moderate aortic valve stenosis. There is moderate tricuspid valve regurgitation. There is estimated nebvnjlg-lr-calatc pulmonary hypertension present (range 60-70 mmHg). The pulmonary valve is not well visualized. Mild pulmonary valve regurgitation. IVC is dilated and measures 24 mm and does collapse with inspiration. A moderate left sided pleural effusion is noted. BP: 112 / 61 HR: 121 Rhythm: MEASUREMENTS (Male / Female) Normal Values Technical Quality:Good 2D ECHO LV Diastolic Diameter PLAX 4.1 cm 4.2 - 5.9 / 3.9 - 5.3 cm LV Systolic Diameter PLAX 3.3 cm IVS Diastolic Thickness 1.0 cm 0.6 - 1.0 / 0.6 - 0.9 cm LVPW Diastolic Thickness 1.0 cm 0.6 - 1.0 / 0.6 - 0.9 cm LV Relative Wall Thickness 0.5 LVOT Diameter 2.0 cm Aortic Root Diameter 2.9 cm LA Systolic Diameter LX 4.6 cm 3.0 - 4.0 / 2.7 - 3.8 cm DOPPLER AV Peak Velocity 342.0 cm/s AV Peak Gradient 46.8 mmHg AV Mean Gradient 25.0 mmHg AV Velocity Time Integral 72.5 cm LVOT Peak Velocity 77.1 cm/s LVOT Peak Gradient 2.4 mmHg LVOT Velocity Time Integral 17.6 cm LVOT Cardiac Index 4249.1 cm/minm AV Area Cont Eq vti 0.8 cm AV Area Cont Eq pk 0.7 cm Mitral E Point Velocity 111.0 cm/s TR Peak Velocity 354.0 cm/s TR Peak Gradient 50.1 mmHg PV Peak Velocity 41.4 cm/s PV Peak Gradient 0.7 mmHg FINDINGS LEFT VENTRICLE Normal left ventricular size. Wall thickness is normal. The left ventricular systolic function is low normal with an estimated ejection fraction in the rang e of 50- 55%. No regional wall motion abnormalities are present. RIGHT VENTRICLE 64 mm x 40 mm. Moderately dilated LEFT ATRIUM The left atrial size is moderately dilated. RIGHT ATRIUM The right atrial size is moderately dilated. ATRIAL SEPTUM 2 jets of left to right flow are seen across the atrial septum which represent a patent foramen oval e or small atrial septal defect. AORTA The aortic root and proximal ascending aorta are normal in size on limited imaging. MITRAL VALVE Structurally normal mitral valve. Mild mitral annular calcification. Moderate mitral valve regurgitation. AORTIC VALVE Severe thickening of the aortic valve leaflets. Mild aortic valve regurgitation. Diffuse calcification of the aortic valve. Moderate aortic valve stenosis. TRICUSPID VALVE Structurally normal tricuspid valve. There is moderate tricuspid valve regurgitation. There is estimated rjnxcsdx-vz-xgxxoc pulmonary hypertension present (range 60-70 mmHg). PULMONARY VALVE The pulmonary valve is not well visualized. Mild pulmonary valve regurgitation. VESSELS IVC is dilated and measures 24 mm and does collapse with inspiration. PERICARDIUM No pericardial effusion. A moderate left sided pleural effusion is noted. OTHER FINDINGS There is a large left pleural effusion seen. Lorne Wolff MD (Electronically Signed) Final Date:01 September 2016 17:17
[2016-09-01] MEDS: FUROSEMIDE 40 MG/4 ML VIAL IV PUSH SCH (17:19)
[2016-09-01] MEDS: ACETAMINOPHEN 325 MG TAB PO PRN (21:15)
[2016-09-01] MEDS: ATORVASTATIN 20 MG TAB PO SCH (21:16)
[2016-09-02] VITALS (14 sets, daily range): BP systolic 103–124; BP diastolic 58–80; PULSE 88–96; RESP 19–28; TEMP 97.8–98.3; O2SAT 93–97
[2016-09-02] MEDS ORDERED: CHLORHEXIDINE GLUCONATE 2 % 1 PACK (2 CLOTHS)(extra cloths) TOPICAL PRN (01:30)
[2016-09-02] MEDS: RESP: ALBUTEROL 2.5 MG/IPRATROPIUM 0.5 MG NEB (SCH) NEB ×4 (02:54→21:19)
[2016-09-02] MEDS: CHLORHEXIDINE GLUCONATE 2 % 1 PACK (2 CLOTHS)(taper/protocol) TOPICAL SCH (04:00)
[2016-09-02] MEDS: PIPERACIL-TAZO 3.375 GM PREMIX 50 ML IV SCH ×2 (06:06→12:45)
[2016-09-02] MEDS: APIXABAN 2.5 MG TABLET PO SCH ×2 (06:06→17:48)
[2016-09-02 06:34] LABS: MEAN CELL VOLUME 91.3 FL (80.0-100.0); MEAN CORPUSCULAR HEMOGLOBIN 30.7 PG (27.0-34.0); MEAN CORPUSCULAR HGB CONC 33.6 % (32.0-36.0); PLATELET COUNT 237 TH/MM3 (150-450); RED BLOOD COUNT 3.84 MIL/MM3 (4.00-5.30); REVIEW FLAG FINAL
[2016-09-02 06:56] LABS: BICARBONATE 26.3 MEQ/L (21.0-32.0); POTASSIUM 3.1 MEQ/L (3.5-5.1)
[2016-09-02] MEDS: METOPROLOL TARTRATE 50 MG TAB PO SCH (07:35)
[2016-09-02] MEDS: PANTOPRAZOLE SOD 20 MG DELAYED RELEASE TAB PO SCH (07:36)
[2016-09-02] MEDS: POTASSIUM CHLORIDE 20 MEQ CONTROLLED RELEASE TAB PO SCH (07:36)
[2016-09-02] MEDS: MEGESTROL ACETATE 40 MG TAB PO SCH (07:36)
[2016-09-02] MEDS: SODIUM CHLORIDE 0.9% FLUSH 10 ML FLUSH IV FLUSH SCH ×2 (07:36→20:38)
[2016-09-02] MEDS: FUROSEMIDE 40 MG/4 ML VIAL IV PUSH SCH (07:37)
[2016-09-02] MEDS ORDERED: POTASSIUM CHLORIDE 10 MEQ CONTROLLED RELEASE TAB PO ONE (08:15)
--- NOTE | 2016-09-02 08:19 | PD.CARD.PN ---
Subjective Subjective Remarks The patient was moved to the intensive care unit last night because of confusion , fast heart rate and some hypoxemia. She has absolutely no complaints now. Telemetry reveals atrial flutter with controlled response. Echocardiogram revealed preserved left ventricular function with moderate aortic stenosis, moderate mitral and tricuspid regurgitation, mild aortic insufficiency and pulmonary hypertension. Objective Medications Reviewed Vital Signs / I&O Vital Signs Date Time Temp Pulse Resp B/P Pulse Ox O2 Delivery O2 Flow Rate FiO2 09/02/16 06:00 93 09/02/16 04:00 88 09/02/16 04:00 97.9 88 21 124/58 96 09/02/16 02:00 89 09/02/16 00:00 97.9 91 24 120/60 93 09/02/16 00:00 91 09/01/16 22:00 110 09/01/16 20:57 95 Nasal Cannula 4.00 09/01/16 20:00 97.9 88 25 121/63 90 09/01/16 20:00 88 09/01/16 19:00 92 Nasal Cannula 4.00 09/01/16 18:00 92 09/01/16 16:00 98.0 91 21 125/70 93 Manual Cuff/Auscultation 09/01/16 16:00 91 09/01/16 12:00 97.3 88 18 112/60 93 09/01/16 10:26 97 Non-Rebreather 15.00 100 I/O 09/01/16 09/01/16 09/01/16 09/02/16 09/02/16 09/02/16 07:00 15:00 23:00 07:00 15:00 23:00 Intake Total 216 ml 808 ml 375 ml 130 ml Output Total 450 ml 2550 ml 750 ml Balance 216 ml 358 ml -2175 ml -620 ml Intake Oral 0 ml 720 ml 240 ml IV Total 216 ml 88 ml 135 ml 130 ml Output Urine Total 450 ml 2550 ml 750 ml # Voids 4 1 # Bowel Movements 0 1 1 1 Physical Exam GENERAL: Well-nourished, well-developed patient in no apparent distress. SKIN: Warm and dry. NECK: JVD normal - less than or equal to 5 cm H20. CARDIOVASCULAR: Irregular rate and rhythm without gallops, or rubs. 2/6 mid peaking systolic ejection murmur at the base. RESPIRATORY: Normal breath sounds - equal bilaterally. No accessory muscle use. No wheezes, rales or rubs. PERIPHERY: No cyanosis, or edema. Laboratory Laboratory Tests Test 09/01/16 09/01/16 09/02/16 19:06 20:00 05:28 B-Type Natriuretic Peptide 857 PG/ML Nasal Screen MRSA (PCR) MRSA NOT DETECTED White Blood Count 8.0 TH/MM3 Red Blood Count 3.84 MIL/MM3 Hemoglobin 11.8 GM/DL Hematocrit 35.0 % Mean Corpuscular Volume 91.3 FL Mean Corpuscular Hemoglobin 30.7 PG Mean Corpuscular Hemoglobin 33.6 % Concent Red Cell Distribution Width 16.0 % Platelet Count 237 TH/MM3 Mean Platelet Volume 8.6 FL Sodium Level 139 MEQ/L Potassium Level 3.1 MEQ/L Chloride Level 103 MEQ/L Carbon Dioxide Level 26.3 MEQ/L Anion Gap 10 MEQ/L Blood Urea Nitrogen 7 MG/DL Creatinine 0.58 MG/DL Estimat Glomerular Filtration 99 ML/MIN Rate Random Glucose 88 MG/DL Calcium Level 8.5 MG/DL Imaging Reviewed Assessment and Plan Assessment and Plan Problems: Possible sepsis although workup negative so far. Congestive heart failure Moderate valvular heart disease Atrial fibrillation/flutter with rapid response Prior CVA Hypertension Hyperlipidemia Recommendations: I will back down on her metoprolol dose and increase oral diltiazem. Replete potassium Decrease diuretic as she is euvolemic and hypokalemic and I would not want to make her prerenal. Follow-up lab work Eliquis Statins If sepsis is ruled out the patient will most likely have AV shazia ablation with permanent pacemaker with . All questions answered. Lorne Wolff MD Sep 02, 2016 08:19
[2016-09-02] MEDS: POTASSIUM CHLORIDE 10 MEQ CONTROLLED RELEASE TAB PO SCH ×2 (08:23→20:37)
[2016-09-02] MEDS: FUROSEMIDE 20 MG/2 ML VIAL IV PUSH SCH ×2 (08:24→17:47)
[2016-09-02] MEDS: DILTIAZEM INJ 125 MG in SODIUM CHLORIDE 0.9% INJ 100 ML IV SCH (08:24)
--- NOTE | 2016-09-02 09:12 | HHI.PR ---
Subjective Subjective Remarks awake, oriented x 2-3 on oxygen at 2L/NC, sats 97% weak afib, HR controlled 90 cardizem at 5/hr no cp no sob diuresing well at bsd Review of Systems Constitutional Constitutional Remarks 12 point ROS completed, unreliable Vitals/Results Intake & Output 09/01/16 09/01/16 09/02/16 15:00 23:00 07:00 Intake Total 808 ml 375 ml 130 ml Output Total 450 ml 2550 ml 750 ml Balance 358 ml -2175 ml -620 ml Intake Oral 720 ml 240 ml IV Total 88 ml 135 ml 130 ml Output Urine Total 450 ml 2550 ml 750 ml # Voids 1 # Bowel Movements 1 1 1 Vital Signs Vital Signs Date Time Temp Pulse Resp B/P Pulse Ox O2 Delivery O2 Flow Rate FiO2 09/02/16 08:16 97 Nasal Cannula 4.00 09/02/16 06:00 93 09/02/16 04:00 88 09/02/16 04:00 97.9 88 21 124/58 96 09/02/16 02:00 89 09/02/16 00:00 97.9 91 24 120/60 93 09/02/16 00:00 91 09/01/16 22:00 110 09/01/16 20:57 95 Nasal Cannula 4.00 09/01/16 20:00 97.9 88 25 121/63 90 09/01/16 20:00 88 09/01/16 19:00 92 Nasal Cannula 4.00 09/01/16 18:00 92 09/01/16 16:00 98.0 91 21 125/70 93 Manual Cuff/Auscultation 09/01/16 16:00 91 09/01/16 12:00 97.3 88 18 112/60 93 09/01/16 10:26 97 Non-Rebreather 15.00 100 CBC/BMP: 09/02/16 0528 09/02/16 0528 Lab Results Laboratory Tests Test 09/01/16 09/01/16 09/02/16 19:06 20:00 05:28 B-Type Natriuretic Peptide 857 PG/ML Nasal Screen MRSA (PCR) MRSA NOT DETECTED White Blood Count 8.0 TH/MM3 Red Blood Count 3.84 MIL/MM3 Hemoglobin 11.8 GM/DL Hematocrit 35.0 % Mean Corpuscular Volume 91.3 FL Mean Corpuscular Hemoglobin 30.7 PG Mean Corpuscular Hemoglobin 33.6 % Concent Red Cell Distribution Width 16.0 % Platelet Count 237 TH/MM3 Mean Platelet Volume 8.6 FL Sodium Level 139 MEQ/L Potassium Level 3.1 MEQ/L Chloride Level 103 MEQ/L Carbon Dioxide Level 26.3 MEQ/L Anion Gap 10 MEQ/L Blood Urea Nitrogen 7 MG/DL Creatinine 0.58 MG/DL Estimat Glomerular Filtration 99 ML/MIN Rate Random Glucose 88 MG/DL Calcium Level 8.5 MG/DL Physical Exam General General Appearance: Well Developed, Comfortable, Malnourished Eyes Eye Exam: Pupils Equal, Pupils Reactive Ears & Nose Ears & Nose Exam: Nasal Mucosa [place] Throat Throat Exam: Oral Mucosa [place] & Moist Neck Neck Exam: Neck Supple, Trachea Midline Pulmonary Resp Remarks faint rales bibasilar Cardiology CV Exam: Irregular, Arrhythmia Gastrointestinal/Abdomen GI Exam: Soft, Non-Tender, Bowel Sounds Present, Non-Distended Genitourinary Exam: Flank Non-Tender Remarks JEAN BAPTISTE Musculoskeletal MS Exam: Joints Intact Integumentary Skin Exam: Warm, Dry Extremeties Extremities Exam: No Edema, Pedal Pulses Palpable Neurologic Neuro Exam: Alert, Awake, Speech Clear, Moving All Extremities, No Focal Deficits Psychiatric Psych Exam: Appropriate Responses VTE Prophylaxis VTE Prophylaxis Device: SCDs VTE Remarks Eliquis PUD Prophylasis PUD Prophylaxis: Protonix Assessment/Plan Assessment/Plan 1. Lactic acid sepsis, unknown reason. 2. Atrial fibrillation uncontrolled with rapid ventricular response. 3. Dementia 4. History of hypertension currently with hypotension. 5. Gastroesophageal reflux disease. 6. Recent urinary tract infection. 7. Possible pneumonia. The patient does have a pleural effusion and bibasilar atelectasis on her left lower lobe. 8. New Pulmonary edema, CHF 9. Physical debility 10. Malnourished Plan: lactic acidosis, sepsis, resolving poss. PNA continue abx follow cultures, negative so far Duonebs supplemental oxygen Acute CHF, afib RVR continue cardizem gtt [employer] Cardizem, feb. BB HR improved, 90s appreciate cardiology input Dr. Abel to eval in the am for poss AV node ablation and PPM CXR today, reviewed, improved continue with Lasix 20 mg IV BID K replacement Continue Eliquis Echo done, EF 50-55%-reserved left ventricular function with moderate aortic stenosis, moderate mitral and tricuspid regurgitation, mild aortic insufficiency and pulmonary hypertension, small atrial septal defect. HTN continue home meds BP better, was hypotensive Dementia appropriate, appears at baseline Malnourished enc. po intake Continue Megace GERD, continue with PPI PT for eval and tx OOB daily keep in ICU for now Labs in am D/W RN D/W Dr. Kelly D/W pt. and This patient was seen by myself and Dr. Kelly, this note is written on his behalf. Tamika Jim Sep 02, 2016 09:12
--- NOTE | 2016-09-02 09:19 | RADRPT ---
EXAM DATE/TIME: 09/02/2016 07:59 [facility] COMPARISON: CHEST SINGLE AP, August 31, 2016, 23:28. INDICATIONS : Congestive heart failure. Respiratory status. MEDICAL HISTORY : None. SURGICAL HISTORY : None. ENCOUNTER: Subsequent ACUITY: 3 days PAIN SCORE: Non-responsive. LOCATION: Bilateral chest FINDINGS: There is minimal improvement in the appearance of the chest with less interstitial edema. Small bila teral pleural effusions are evident. Heart remains enlarged. Pulmonary vascularity is normalizing. CONCLUSION: Interval improvement with better aeration and less interstitial edema and pleural effusions. Ayden Gutierres MD FACR on September 02, 2016 at 9:12 Board Certified Radiologist. This report was verified electronically.
--- NOTE | 2016-09-02 09:57 | EKG ---
Date Performed: 08/31/2016 Time Performed: 23:38:20 PTAGE: 86 years EKG: Sinus rhythm with PVC(s) with PAC(s) with 1st degree A-V block Extensive ST-T changes are nonspecific Abnormal EC G PREVIOUS TRACING : 08/29/2016 14.48 DOCTOR: Edson Giordano Interpretating Date/Time 09/02/2016 09:46:27
[2016-09-02] MEDS: ACETAMINOPHEN 325 MG TAB PO PRN ×2 (16:00→20:37)
[2016-09-02] MEDS: DILTIAZEM-CD 120 MG CAP ER PO SCH (17:48)
[2016-09-02] MEDS: METOPROLOL TARTRATE 100 MG TAB PO SCH (20:37)
[2016-09-02] MEDS: AMOXICILLIN/CLAVULANATE K 500 MG TAB PO SCH (20:37)
[2016-09-02] MEDS: ATORVASTATIN 20 MG TAB PO SCH (20:37)
[2016-09-02] MEDS: ALPRAZolam 0.25 MG TAB PO PRN (20:38)
[2016-09-03] VITALS (12 sets, daily range): BP systolic 101–130; BP diastolic 52–78; PULSE 71–125; RESP 16–20; TEMP 97.5–98.4; O2SAT 92–98
[2016-09-03] MEDS: ALPRAZolam 0.25 MG TAB PO PRN ×4 (02:31→21:57)
[2016-09-03] MEDS: RESP: ALBUTEROL 2.5 MG/IPRATROPIUM 0.5 MG NEB (SCH) NEB ×3 (03:33→15:20)
[2016-09-03] MEDS: CHLORHEXIDINE GLUCONATE 2 % 1 PACK (2 CLOTHS)(taper/protocol) TOPICAL SCH (03:50)
[2016-09-03] MEDS: APIXABAN 2.5 MG TABLET PO SCH ×2 (04:51→17:19)
[2016-09-03] MEDS: DILTIAZEM-CD 120 MG CAP ER PO SCH (07:16)
[2016-09-03] MEDS: FUROSEMIDE 20 MG/2 ML VIAL IV PUSH SCH (08:34)
[2016-09-03] MEDS: POTASSIUM CHLORIDE 10 MEQ CONTROLLED RELEASE TAB PO SCH ×2 (08:34→21:58)
[2016-09-03] MEDS: METOPROLOL TARTRATE 100 MG TAB PO SCH ×2 (08:34→21:59)
[2016-09-03] MEDS: SODIUM CHLORIDE 0.9% FLUSH 10 ML FLUSH IV FLUSH SCH ×2 (08:34→21:57)
[2016-09-03] MEDS: PANTOPRAZOLE SOD 20 MG DELAYED RELEASE TAB PO SCH (08:34)
[2016-09-03] MEDS: MEGESTROL ACETATE 40 MG TAB PO SCH (08:34)
--- NOTE | 2016-09-03 09:19 | HHI.PR ---
Subjective Subjective Remarks agitated, confused, at times hallucinating fighting with , "I"m going to divorce that man" refused labs this morning no fever HR elevated 110s to 120s, afib diuresing well sats 98 on RA off Cardize Review of Systems Constitutional Constitutional Remarks 12 point ROS unable to complete Vitals/Results Intake & Output 09/02/16 09/02/16 09/03/16 15:00 23:00 07:00 Intake Total 1050 ml 530 ml 244 ml Output Total 3050 ml 750 ml 350 ml Balance -2000 ml -220 ml -106 ml Intake Oral 960 ml 480 ml 240 ml IV Total 90 ml 50 ml 4 ml Output Urine Total 3050 ml 750 ml 350 ml # Bowel Movements 0 0 Vital Signs Vital Signs Date Time Temp Pulse Resp B/P Pulse Ox O2 Delivery O2 Flow Rate FiO2 09/03/16 08:00 97.5 71 20 101/59 92 09/03/16 04:00 Nasal Cannula 2.00 09/03/16 04:00 97.8 94 20 129/72 98 09/03/16 00:54 95 09/03/16 00:00 96 Nasal Cannula 2.00 09/03/16 00:00 97.8 95 20 103/66 98 09/02/16 22:00 95 09/02/16 21:19 97 Nasal Cannula 2.00 09/02/16 20:00 98.3 93 28 103/80 93 09/02/16 20:00 92 09/02/16 19:00 100 Nasal Cannula 2.00 09/02/16 18:00 92 09/02/16 17:00 15 09/02/16 16:00 98.3 93 24 113/63 97 09/02/16 16:00 93 09/02/16 14:00 94 09/02/16 12:00 94 09/02/16 12:00 97.8 94 19 103/58 97 09/02/16 10:00 96 CBC/BMP: 09/02/16 0528 09/02/16 0528 Physical Exam General General Appearance: Well Developed, Comfortable, Malnourished Eyes Eye Exam: Pupils Equal, Pupils Reactive Ears & Nose Ears & Nose Exam: Nasal Mucosa [place] Throat Throat Exam: Oral Mucosa [place] & Moist Neck Neck Exam: Neck Supple, Trachea Midline Pulmonary Resp Remarks faint rales bibasilar Cardiology CV Exam: Irregular, Arrhythmia Gastrointestinal/Abdomen GI Exam: Soft, Non-Tender, Bowel Sounds Present, Non-Distended Genitourinary Exam: Flank Non-Tender Remarks JEAN BAPTISTE Musculoskeletal MS Exam: Joints Intact Integumentary Skin Exam: Warm, Dry Extremeties Extremities Exam: No Edema, Pedal Pulses Palpable Neurologic Neuro Exam: Alert, Awake, Speech Clear, Moving All Extremities, No Focal Deficits Psychiatric Psych Exam: Appropriate Responses VTE Prophylaxis VTE Prophylaxis Device: SCDs VTE Remarks Eliquis PUD Prophylasis PUD Prophylaxis: Protonix Assessment/Plan Problem List: (1) Lactic acidosis (2) Atrial fibrillation with RVR (3) Valvular disease (4) Mild cognitive impairment (5) Hypertension (6) GERD (gastroesophageal reflux disease) (7) UTI (urinary tract infection) (8) Sepsis (9) Anxiety (10) Hypokalemia (11) Pleural effusion (12) Delirium (13) CHF (congestive heart failure) (14) History of CVA (cerebrovascular accident) (15) Hypoxia Assessment/Plan lactic acidosis, sepsis, resolving poss. PNA continue PO abx follow cultures, negative so far Duonebs supplemental oxygen Acute CHF, afib RVR off Cardizem HR better, although elevated at this time due to anxiety and agitation continue CCB and BB appreciate cardiology input Dr. Abel to eval today for poss AV node ablation and PPM CXR improved, diuresing well change to PO Lasix 20 mg po bid dc jean baptiste later today K replacement Continue Eliquis Echo done, EF 50-55%-reserved left ventricular function with moderate aortic stenosis, moderate mitral and tricuspid regurgitation, mild aortic insufficiency and pulmonary hypertension, small atrial septal defect. Hx of MCI and CVA, poss. underlying dementia overnight became agitated, confused, hallucinating. Angry at refused labs given Xanax, no change will try Haldol 2 mg IV x 1 now may need Seroquel states she drinks 1-2 glasses of wine every day, "small" continue to monitor neuro status will check urine HTN continue home meds BP better, was hypotensive Malnourished enc. po intake Continue Megace GERD, continue with PPI PT for eval and tx OOB daily labs pending will wait for further recommendations from Dr. Abel D/W RN D/W Dr. Kelly D/W pt. and This patient was seen by myself and Dr. Kelly, this note is written on his behalf. Problem Qualifiers (1) GERD (gastroesophageal reflux disease): Qualified Code: K21.9 - Gastroesophageal reflux disease, esophagitis presence not specified (2) UTI (urinary tract infection): Qualified Code: N39.0 - Urinary tract infection without hematuria, site unspecified (3) Sepsis: Qualified Code: A41.9 - Sepsis, due to unspecified organism (4) CHF (congestive heart failure): Qualified Code: I50.9 - Acute congestive heart failure, unspecified congestive heart failure type Tamika Jim Sep 03, 2016 09:19
[2016-09-03] MEDS ORDERED: HALOPERIDOL LACTATE 5 MG/ML AMP IV PUSH ONE (09:30)
[2016-09-03] MEDS: AMOXICILLIN/CLAVULANATE K 500 MG TAB PO SCH ×2 (12:11→21:58)
[2016-09-03 13:02] LABS: HEMATOCRIT 38.5 % (35.0-46.0); MEAN CELL VOLUME 92.4 FL (80.0-100.0); MEAN CORPUSCULAR HGB CONC 32.5 % (32.0-36.0); PLATELET COUNT 257 TH/MM3 (150-450); RED BLOOD COUNT 4.17 MIL/MM3 (4.00-5.30); REVIEW FLAG FINAL; WHITE BLOOD COUNT 6.1 TH/MM3 (4.0-11.0)
[2016-09-03 13:17] LABS: BICARBONATE 23.6 MEQ/L (21.0-32.0); POTASSIUM 3.8 MEQ/L (3.5-5.1)
[2016-09-03 16:29] LABS: BLOOD, URINE NEG (NEG); GLUCOSE,URINE NEG (NEG); KETONE, URINE NEG (NEG); NITRITE,URINE NEG (NEG); SQUAMOUS EPITHELIAL CELL URINE <1 /hpf (0-5); URINE COLOR YELLOW (YELLW/STRAW)
[2016-09-03 16:30] LABS: COMMENT (UR) CATH-CULT NOT IND; CULTURE IF INDICATED CATH CULTURE NOT IND
[2016-09-03] MEDS ORDERED: FUROSEMIDE 20 MG TAB PO SCH (18:00)
[2016-09-03] MEDS: ESCITALOPRAM OXALATE 10 MG TAB PO SCH (21:58)
[2016-09-03] MEDS: ATORVASTATIN 20 MG TAB PO SCH (21:58)
[2016-09-04] VITALS (8 sets, daily range): BP systolic 104–145; BP diastolic 58–86; PULSE 61–148; RESP 16–22; TEMP 97.2–98.7; O2SAT 96–99
[2016-09-04] MEDS: CHLORHEXIDINE GLUCONATE 2 % 1 PACK (2 CLOTHS)(taper/protocol) TOPICAL SCH (04:00)
[2016-09-04] MEDS: APIXABAN 2.5 MG TABLET PO SCH (05:55)
--- NOTE | 2016-09-04 08:24 | MB ---
cc: WILLIAM DE PAZ MD, HANSCY M.D. DATE OF CONSULTATION: 09/03/2016 REASON FOR CONSULTATION Atrial fibrillation, unable to control with medication. HISTORY OF PRESENT ILLNESS Mrs. Alfonso is an 86-year-old female with a history of atrial fibrillation. She had a previous ablation in 2011. Subsequently in March 2016 she had an atrial tachycardia ablation. She was back in the hospital with atrial fibrillation with rapid ventricular response. Heart rate was very difficult to control. In the past AV node ablation and pacer was considered. I was consulted for further evaluation and management. The chart was reviewed. The patient was evaluated. ALLERGIES ASPIRIN. SOCIAL HISTORY Negative for smoking and drinking. FAMILY HISTORY Noncontributory to her current medical condition. MEDICATIONS 1. Amlodipine 10 mg a day. 2. Lisinopril. 3. Eliquis. 4. Atorvastatin. 5. Metoprolol. REVIEW OF SYSTEMS Currently the patient refers no chest pain, refers irritation, she wants to go home. No vomiting, no fever. PHYSICAL EXAMINATION GENERAL: She is sleepy but unresponsive. VITAL SIGNS: Blood pressure on evaluation was 113/78, pulse 95, respiratory rate 18. LUNGS: Ventilated. CARDIOVASCULAR: S1, S2, irregular. No gallop. ABDOMEN: Soft. No mass. No bruit. EXTREMITIES: No edema. ELECTROCARDIOGRAM Electrocardiogram: Atrial fibrillation, atrial tachyarrhythmia. LABORATORY Hemoglobin 12.5, white blood cell count 6.1. Potassium 3.8, creatinine 0.66. ASSESSMENT AND RECOMMENDATION Mrs. Alfonso has atrial fibrillation, atrial tachyarrhythmia. Heart rate currently is in the 90s. If heart rate can be controlled, medical management would be the best approach. Mrs. Alfonso is a little bit disoriented. I had a long conversation with her and daughter. At this point she is going to be observed. She will continue on anticoagulation. As mentioned before if heart rate cannot be controlled then AV node ablation and biventricular pacing will be an option. I will closely monitor her during hospitalization. Esperanza Abel MD HS/BT /11:20 PM /8:20 AM
--- NOTE | 2016-09-04 08:45 | HHI.PR ---
Subjective Subjective Remarks Less agitated, sleeping, awakes to voice remains confused HR 90 to 120s, afib difficult to obtain ROS at bsd Dr. Abel evaluated last night, plans ablation and PPM sometime this week. Review of Systems Constitutional Constitutional Remarks 12 point ROS unable to complete Vitals/Results Intake & Output 09/03/16 09/03/16 09/04/16 15:00 23:00 07:00 Output Total 1400 ml 150 ml Balance -1400 ml -150 ml Output Urine Total 1400 ml 150 ml # Voids 1 2 # Bowel Movements 1 1 Vital Signs Vital Signs Date Time Temp Pulse Resp B/P Pulse Ox O2 Delivery O2 Flow Rate FiO2 09/04/16 04:00 97.2 94 20 145/70 97 09/04/16 00:00 97.8 93 16 141/79 96 09/03/16 22:04 Nasal Cannula 2.00 09/03/16 20:30 94 09/03/16 20:00 98.3 95 16 130/70 94 09/03/16 16:00 97.7 95 20 113/78 94 09/03/16 15:21 98 09/03/16 12:00 97.5 95 20 110/52 95 09/03/16 09:52 95 21 09/03/16 08:52 Room Air 09/03/16 08:52 125 CBC/BMP: 09/03/16 1235 09/03/16 1235 Lab Results Laboratory Tests Test 09/03/16 09/03/16 12:35 16:10 White Blood Count 6.1 TH/MM3 Red Blood Count 4.17 MIL/MM3 Hemoglobin 12.5 GM/DL Hematocrit 38.5 % Mean Corpuscular Volume 92.4 FL Mean Corpuscular Hemoglobin 30.0 PG Mean Corpuscular Hemoglobin 32.5 % Concent Red Cell Distribution Width 16.0 % Platelet Count 257 TH/MM3 Mean Platelet Volume 8.1 FL Sodium Level 136 MEQ/L Potassium Level 3.8 MEQ/L Chloride Level 102 MEQ/L Carbon Dioxide Level 23.6 MEQ/L Anion Gap 10 MEQ/L Blood Urea Nitrogen 8 MG/DL Creatinine 0.66 MG/DL Estimat Glomerular Filtration 85 ML/MIN Rate Random Glucose 97 MG/DL Calcium Level 9.5 MG/DL Urine Color YELLOW Urine Turbidity CLEAR Urine pH 8.0 Urine Specific [place] 1.010 Urine Protein NEG mg/dL Urine Glucose (UA) NEG mg/dL Urine Ketones NEG mg/dL Urine Occult Blood NEG Urine Nitrite NEG Urine Bilirubin NEG Urine Urobilinogen LESS THAN 2.0 MG/DL Urine Leukocyte Esterase NEG Urine RBC LESS THAN 1 /hpf Urine WBC 2 /hpf Urine Squamous Epithelial <1 /hpf Cells Microscopic Urinalysis Comment CATH-CULT NOT IND Physical Exam General General Appearance: Well Developed, Comfortable, Malnourished Eyes Eye Exam: Pupils Equal, Pupils Reactive Ears & Nose Ears & Nose Exam: Nasal Mucosa [place] Throat Throat Exam: Oral Mucosa [place] & Moist Neck Neck Exam: Neck Supple, Trachea Midline Pulmonary Resp Remarks faint rales bibasilar Cardiology CV Exam: Irregular, Arrhythmia, Tachycardia Gastrointestinal/Abdomen GI Exam: Soft, Non-Tender, Bowel Sounds Present, Non-Distended Genitourinary Exam: Flank Non-Tender Remarks JEAN BAPTISTE Musculoskeletal MS Exam: Joints Intact Integumentary Skin Exam: Warm, Dry Extremeties Extremities Exam: No Edema, Pedal Pulses Palpable Neurologic Neuro Exam: Alert, Awake, Speech Clear, Moving All Extremities, No Focal Deficits Psychiatric Psych Exam: Appropriate Responses VTE Prophylaxis VTE Prophylaxis Device: SCDs VTE Remarks Eliquis PUD Prophylasis PUD Prophylaxis: Protonix Assessment/Plan Problem List: (1) Lactic acidosis (2) Atrial fibrillation with RVR (3) Valvular disease (4) Mild cognitive impairment (5) Hypertension (6) GERD (gastroesophageal reflux disease) (7) UTI (urinary tract infection) (8) Sepsis (9) Anxiety (10) Hypokalemia (11) Pleural effusion (12) Delirium (13) CHF (congestive heart failure) (14) History of CVA (cerebrovascular accident) (15) Hypoxia Assessment/Plan lactic acidosis, sepsis, resolving poss. PNA continue PO abx follow cultures, negative so far Duonebs supplemental oxygen Acute CHF, afib RVR off Cardizem gtt HR elevated, increase Cardizem to 240 po daily continue CCB and BB appreciate cardiology input Dr. Abel plans AV node ablation and PPM sometime this week, note and orders pending Hold Eliquis CXR improved, diuresing well Continue PO Lasix 20 mg po bid K replacement Echo done, EF 50-55%-reserved left ventricular function with moderate aortic stenosis, moderate mitral and tricuspid regurgitation, mild aortic insufficiency and pulmonary hypertension, small atrial septal defect. Hx of MCI and CVA, poss. underlying dementia overnight became agitated, confused, hallucinating. Angry at improved after Haldol, sleeping now. Less agitated but still confused refused labs Continue Xanax PRN may need Seroquel states she drinks 1-2 glasses of wine every day, "small" continue to monitor neuro status UA okay HTN continue home meds BP better, was hypotensive Malnourished enc. po intake Continue Megace GERD, continue with PPI PT for eval and tx OOB daily labs reviewed, okay for ablation and PPM sometime this week D/W RN D/W Dr. Kelly D/W pt. and This patient was seen by myself and Dr. Kelly, this note is written on his behalf. Problem Qualifiers (1) GERD (gastroesophageal reflux disease): Qualified Code: K21.9 - Gastroesophageal reflux disease, esophagitis presence not specified (2) UTI (urinary tract infection): Qualified Code: N39.0 - Urinary tract infection without hematuria, site unspecified (3) Sepsis: Qualified Code: A41.9 - Sepsis, due to unspecified organism (4) CHF (congestive heart failure): Qualified Code: I50.9 - Acute congestive heart failure, unspecified congestive heart failure type Tamika Jim Sep 04, 2016 08:45
[2016-09-04] MEDS: POTASSIUM CHLORIDE 10 MEQ CONTROLLED RELEASE TAB PO SCH ×2 (08:53→21:00)
[2016-09-04] MEDS: MEGESTROL ACETATE 40 MG TAB PO SCH (08:53)
[2016-09-04] MEDS: SODIUM CHLORIDE 0.9% FLUSH 10 ML FLUSH IV FLUSH SCH ×2 (08:53→21:00)
[2016-09-04] MEDS: AMOXICILLIN/CLAVULANATE K 500 MG TAB PO SCH ×2 (08:53→21:00)
[2016-09-04] MEDS: PANTOPRAZOLE SOD 20 MG DELAYED RELEASE TAB PO SCH (08:53)
[2016-09-04] MEDS: METOPROLOL TARTRATE 100 MG TAB PO SCH ×2 (08:53→21:00)
[2016-09-04] MEDS ORDERED: DILTIAZEM-CD 180 MG CAP ER PO SCH (09:00)
[2016-09-04] MEDS: DILTIAZEM-CD 240 MG CAP ER PO SCH (10:10)
[2016-09-04] MEDS: FUROSEMIDE 20 MG TAB PO SCH (10:10)
--- NOTE | 2016-09-04 19:43 | HHI.PR ---
Subjective Remarks Feeling better today Objective Vital Signs Date Time Temp Pulse Resp B/P Pulse Ox O2 Delivery O2 Flow Rate FiO2 09/04/16 16:00 98.7 123 20 104/58 98 09/04/16 13:58 115 09/04/16 12:00 97.7 94 20 124/86 99 09/04/16 09:03 Nasal Cannula 2.00 09/04/16 08:00 97.6 96 22 136/64 98 Automatic Cuff 09/04/16 04:00 97.2 94 20 145/70 97 09/04/16 00:00 97.8 93 16 141/79 96 09/03/16 22:04 Nasal Cannula 2.00 09/03/16 20:30 94 09/03/16 20:00 98.3 95 16 130/70 94 I/O 09/03/16 09/03/16 09/03/16 09/04/16 09/04/16 09/04/16 07:00 15:00 23:00 07:00 15:00 23:00 Intake Total 244 ml 240 ml Output Total 350 ml 1400 ml 150 ml Balance -106 ml -1400 ml -150 ml 240 ml Intake Oral 240 ml 240 ml IV Total 4 ml Output Urine Total 350 ml 1400 ml 150 ml # Voids 1 2 3 # Bowel Movements 0 1 1 1 Result Diagram: 09/03/16 1235 09/03/16 1235 Imaging Alert, fully oriented today Lungs: ventilated Heart: S1, S2 irregular, tachycardia Abdomen: soft, no mass Ext: no edema Current Medications Medications (Trade) Dose Ordered Sig/Luis A Route Start Time Stop Time Status Last Admin (NS Flush) 2 ml UNSCH PRN IV FLUSH 08/29/16 17:00 (NS Flush) 2 ml BID IV FLUSH 08/29/16 21:00 09/04/16 08:53 (Tylenol) 650 mg Q4H PRN PO 08/29/16 17:00 (Zofran Inj) 4 mg Q6H PRN IVP 08/29/16 17:00 09/01/16 09:15 (Narcan Inj) 0.4 mg UNSCH PRN IV 08/29/16 17:00 (Eliquis) 2.5 mg BID@06,18 PO 08/29/16 18:00 Hold 09/02/16 17:48 (Lipitor) 20 mg HS PO 08/29/16 21:00 09/03/16 21:58 (Protonix) 20 mg DAILY PO 08/30/16 09:00 09/04/16 08:53 (Xanax) 0.25 mg Q6H PRN PO 08/29/16 22:15 09/03/16 21:57 (Tylenol) 650 mg Q4H PRN PO 08/30/16 01:30 09/02/16 20:37 (Megace) 40 mg DAILY PO 08/31/16 11:00 09/04/16 08:53 Miscellaneous Information Patient in critical care unit? Ass... Q361D .XX 09/02/16 01:30 (Chlorhexidine 2% Cloth) 3 pack DAILY@04 TOPICAL 09/02/16 04:00 09/06/16 04:01 09/03/16 03:50 (Chlorhexidine 2% Cloth) 3 pack UNSCH PRN TOPICAL 09/02/16 01:30 09/07/16 01:27 (KCl) 30 meq Q12HR PO 09/02/16 09:00 09/04/16 08:53 (Lopressor) 100 mg Q12HR PO 09/02/16 21:00 09/04/16 08:53 (Augmentin) 500 mg Q12HR PO 09/02/16 21:00 09/04/16 08:53 (Lexapro) 10 mg HS PO 09/03/16 21:00 09/03/16 21:58 (Cardizem Cd) 240 mg DAILY PO 09/04/16 09:00 09/04/16 10:10 (Lasix) 20 mg DAILY PO 09/04/16 09:00 09/04/16 10:10 Assessment and Plan Problem List: (1) Atrial fibrillation with RVR Status: Acute Plan: Back in atrial tach/ atrial fib with FVR. Yesterday was disoriented. Very frail. Spent the past day and half sleeping There is also a diagnosis of sepsis. I discussed again the case with the . I will try medical management. If HR cannot be controlled then AV node ablation and pacer. Digoxin will be added. Esperanza Abel MD Sep 04, 2016 19:43
[2016-09-04] MEDS ORDERED: DIGOXIN 0.5 MG/2 ML VIAL IV PUSH ONE (19:45)
[2016-09-04] MEDS: ATORVASTATIN 20 MG TAB PO SCH (21:00)
[2016-09-04] MEDS: ESCITALOPRAM OXALATE 10 MG TAB PO SCH (21:00)
[2016-09-04] MEDS ORDERED: DILTIAZEM HCL 30 MG TAB PO SCH (23:45)
[2016-09-05] VITALS (7 sets, daily range): BP systolic 118–132; BP diastolic 62–71; PULSE 91–128; RESP 16–20; TEMP 97.2–98.3; O2SAT 94–98
[2016-09-05] MEDS: ALPRAZolam 0.25 MG TAB PO PRN ×2 (00:16→21:04)
[2016-09-05] MEDS: CHLORHEXIDINE GLUCONATE 2 % 1 PACK (2 CLOTHS)(taper/protocol) TOPICAL SCH (04:00)
[2016-09-05] MEDS: DIGOXIN 0.125 MG TAB PO SCH (08:37)
[2016-09-05] MEDS: FUROSEMIDE 20 MG TAB PO SCH (08:37)
[2016-09-05] MEDS: METOPROLOL TARTRATE 100 MG TAB PO SCH ×2 (08:37→21:04)
[2016-09-05] MEDS: MEGESTROL ACETATE 40 MG TAB PO SCH (08:37)
[2016-09-05] MEDS: POTASSIUM CHLORIDE 10 MEQ CONTROLLED RELEASE TAB PO SCH ×2 (08:37→21:04)
[2016-09-05] MEDS: SODIUM CHLORIDE 0.9% FLUSH 10 ML FLUSH IV FLUSH SCH ×2 (08:37→21:05)
[2016-09-05] MEDS: AMOXICILLIN/CLAVULANATE K 500 MG TAB PO SCH ×2 (08:37→21:04)
[2016-09-05] MEDS: PANTOPRAZOLE SOD 20 MG DELAYED RELEASE TAB PO SCH (08:37)
[2016-09-05] MEDS: DILTIAZEM-CD 240 MG CAP ER PO SCH (08:37)
[2016-09-05 10:08] LABS: BICARBONATE 20.9 MEQ/L (21.0-32.0); POTASSIUM 3.7 MEQ/L (3.5-5.1)
--- NOTE | 2016-09-05 11:17 | HHI.PR ---
Subjective Subjective Remarks A. fib with RVR last night received an extra 30 mg of diltiazem Prior to that, Dr. Abel gave her 0.5 digoxin IV Today, patient is more sleepy. She is participating with physical therapy. His very debilitated Remains at times disoriented although not as agitated A. fib on the monitor, heart rate 90s to 100 Difficult to obtain ROS at bedside, he is concerned patient may not be able to tolerate pacemaker ablation procedure as she is very debilitated Review of Systems Constitutional Constitutional Remarks 12 point ROS unable to complete Vitals/Results Intake & Output 09/04/16 09/04/16 09/05/16 15:00 23:00 07:00 Intake Total 240 ml Balance 240 ml Intake Oral 240 ml # Voids 3 1 2 # Bowel Movements 1 1 Vital Signs Vital Signs Date Time Temp Pulse Resp B/P Pulse Ox O2 Delivery O2 Flow Rate FiO2 09/05/16 08:00 97.7 94 20 126/71 98 09/05/16 04:00 98.3 93 20 123/62 98 09/05/16 01:27 94 09/05/16 00:09 97.5 125 16 120/66 94 09/04/16 21:00 Nasal Cannula 2.00 09/04/16 20:23 148 09/04/16 20:00 97.4 61 18 121/59 99 09/04/16 16:00 98.7 123 20 104/58 98 09/04/16 13:58 115 09/04/16 12:00 97.7 94 20 124/86 99 CBC/BMP: 09/03/16 1235 09/05/16 0638 Lab Results Laboratory Tests Test 09/05/16 06:38 Sodium Level 137 MEQ/L Potassium Level 3.7 MEQ/L Chloride Level 103 MEQ/L Carbon Dioxide Level 20.9 MEQ/L Anion Gap 13 MEQ/L Blood Urea Nitrogen 12 MG/DL Creatinine 0.61 MG/DL Estimat Glomerular Filtration 93 ML/MIN Rate Random Glucose 90 MG/DL Calcium Level 9.4 MG/DL Physical Exam General General Appearance: Well Developed, Sleeping, Malnourished Eyes Eye Exam: Pupils Equal, Pupils Reactive Ears & Nose Ears & Nose Exam: Nasal Mucosa [place] Throat Throat Exam: Oral Mucosa [place] & Moist Neck Neck Exam: Neck Supple, Trachea Midline Pulmonary Resp Remarks faint rales bibasilar Cardiology CV Exam: Irregular, Arrhythmia, Tachycardia Gastrointestinal/Abdomen GI Exam: Soft, Non-Tender, Bowel Sounds Present, Non-Distended Musculoskeletal MS Exam: Joints Intact Integumentary Skin Exam: Warm, Dry Extremeties Extremities Exam: No Edema, Pedal Pulses Palpable Neurologic Neuro Exam: Awake, Speech Clear, Moving All Extremities, No Focal Deficits Psychiatric Psych Exam: Appropriate Responses VTE Prophylaxis VTE Prophylaxis Device: SCDs VTE Remarks Eliquis PUD Prophylasis PUD Prophylaxis: Protonix Assessment/Plan Problem List: (1) Lactic acidosis (2) Atrial fibrillation with RVR (3) Valvular disease (4) Mild cognitive impairment (5) Hypertension (6) GERD (gastroesophageal reflux disease) (7) UTI (urinary tract infection) (8) Sepsis (9) Anxiety (10) Hypokalemia (11) Pleural effusion (12) Delirium (13) CHF (congestive heart failure) (14) History of CVA (cerebrovascular accident) (15) Hypoxia Assessment/Plan lactic acidosis, sepsis, resolving poss. PNA continue PO abx -we'll DC tomorrow follow cultures, negative so far Duonebs supplemental oxygen Acute CHF, afib RVR off Cardizem gtt continue CCB and BB appreciate cardiology input CXR improved, diuresing well Continue with Lasix 20 mg by mouth daily K replacement Echo done, EF 50-55%-reserved left ventricular function with moderate aortic stenosis, moderate mitral and tricuspid regurgitation, mild aortic insufficiency and pulmonary hypertension, small atrial septal defect. Remains with uncontrolled heart rate, at this time Dr. Abel plans to continue with medical management. Possible ablation and pacemaker when patient more stable We'll resume Eliquis Pt. now on digoxin Hx of MCI and CVA, poss. underlying dementia Remains confused, less agitated Continue Xanax PRN may need Seroquel states she drinks 1-2 glasses of wine every day, "small" continue to monitor neuro status UA okay HTN continue home meds BP better, was hypotensive Malnourished enc. po intake Continue Megace GERD, continue with PPI PT for eval and tx OOB daily Discussed with at length, patient has been on a downward spiral, multiple admissions, increased confusion. He is concerned that she may not be able to tolerate pacemaker and ablation procedure. He will talk to Dr. Abel about his concerns. D/W RN D/W Dr. Kelly D/W pt. and This patient was seen by myself and Dr. Kelly, this note is written on his behalf. Problem Qualifiers (1) GERD (gastroesophageal reflux disease): Qualified Code: K21.9 - Gastroesophageal reflux disease, esophagitis presence not specified (2) UTI (urinary tract infection): Qualified Code: N39.0 - Urinary tract infection without hematuria, site unspecified (3) Sepsis: Qualified Code: A41.9 - Sepsis, due to unspecified organism (4) CHF (congestive heart failure): Qualified Code: I50.9 - Acute congestive heart failure, unspecified congestive heart failure type Tamika Jim Sep 05, 2016 11:17
[2016-09-05] MEDS: APIXABAN 2.5 MG TABLET PO SCH (16:39)
--- NOTE | 2016-09-05 18:59 | HHI.PR ---
Subjective Remarks disoriented Objective Vital Signs Date Time Temp Pulse Resp B/P Pulse Ox O2 Delivery O2 Flow Rate FiO2 09/05/16 16:00 97.7 91 20 128/68 97 09/05/16 11:56 97.2 95 20 118/69 98 09/05/16 08:00 97.7 94 20 126/71 98 09/05/16 08:00 Nasal Cannula 3.00 09/05/16 04:00 98.3 93 20 123/62 98 09/05/16 01:27 94 09/05/16 00:09 97.5 125 16 120/66 94 09/04/16 21:00 Nasal Cannula 2.00 09/04/16 20:23 148 09/04/16 20:00 97.4 61 18 121/59 99 I/O 09/04/16 09/04/16 09/04/16 09/05/16 09/05/16 09/05/16 07:00 15:00 23:00 07:00 15:00 23:00 Intake Total 240 ml 420 ml Balance 240 ml 420 ml Intake Oral 240 ml 420 ml # Voids 2 3 1 2 3 # Bowel Movements 1 1 1 0 Result Diagram: 09/03/16 1235 09/05/16 0638 Imaging Alert, disoriented, asking for her mother Lungs: ventilated Heart: S1, S2 irregular, tachycardia, no gallop Abdomen: soft, no mass Ext: no edema Last Impressions Chest X-Ray 09/02/16 0800 Signed Impressions: Service Date/Time: Friday, September 02, 2016 07:59 - CONCLUSION: Interval improvement with better aeration and less interstitial edema and pleural effusions. Ayden Gutierres MD FACR Current Medications Medications (Trade) Dose Ordered Sig/Luis A Route Start Time Stop Time Status Last Admin (NS Flush) 2 ml UNSCH PRN IV FLUSH 08/29/16 17:00 (NS Flush) 2 ml BID IV FLUSH 08/29/16 21:00 09/05/16 08:37 (Tylenol) 650 mg Q4H PRN PO 08/29/16 17:00 (Zofran Inj) 4 mg Q6H PRN IVP 08/29/16 17:00 09/01/16 09:15 (Narcan Inj) 0.4 mg UNSCH PRN IV 08/29/16 17:00 (Eliquis) 2.5 mg BID@06,18 PO 08/29/16 18:00 09/05/16 16:39 (Lipitor) 20 mg HS PO 08/29/16 21:00 09/04/16 21:00 (Protonix) 20 mg DAILY PO 08/30/16 09:00 09/05/16 08:37 (Xanax) 0.25 mg Q6H PRN PO 08/29/16 22:15 09/05/16 00:16 (Tylenol) 650 mg Q4H PRN PO 08/30/16 01:30 09/02/16 20:37 (Megace) 40 mg DAILY PO 08/31/16 11:00 09/05/16 08:37 Miscellaneous Information Patient in critical care unit? Ass... Q361D .XX 09/02/16 01:30 (Chlorhexidine 2% Cloth) 3 pack DAILY@04 TOPICAL 09/02/16 04:00 09/06/16 04:01 09/03/16 03:50 (Chlorhexidine 2% Cloth) 3 pack UNSCH PRN TOPICAL 09/02/16 01:30 09/07/16 01:27 (KCl) 30 meq Q12HR PO 09/02/16 09:00 09/05/16 08:37 (Lopressor) 100 mg Q12HR PO 09/02/16 21:00 09/05/16 08:37 (Augmentin) 500 mg Q12HR PO 09/02/16 21:00 09/05/16 08:37 (Lexapro) 10 mg HS PO 09/03/16 21:00 09/04/16 21:00 (Cardizem Cd) 240 mg DAILY PO 09/04/16 09:00 09/05/16 08:37 (Lasix) 20 mg DAILY PO 09/04/16 09:00 09/05/16 08:37 (Lanoxin) 0.125 mg DAILY PO 09/05/16 09:00 09/05/16 08:37 Assessment and Plan Problem List: (1) Atrial fibrillation with RVR Status: Acute Plan: patient disoriented. On/off tachy Cachectic . I had a long conversation with Dr Kelly and the today again. The patient isd disoriented. Spent 36 hrs sleeping in unresponsive days before. HR isd in the 100s. Agitated. Not a good candidate for sedationand surgical procedure. My recommendation , as before , is medical management. If there is any neurological improvement in the future then ablation will be considered. The understand and agree. Esperanza Abel MD Sep 05, 2016 18:59
[2016-09-05] MEDS: ESCITALOPRAM OXALATE 10 MG TAB PO SCH (21:04)
[2016-09-05] MEDS: ATORVASTATIN 20 MG TAB PO SCH (21:04)
[2016-09-05] MEDS ORDERED: LORazepam 2 MG/ML VIAL IV ONE (23:15)
[2016-09-06] VITALS (12 sets, daily range): BP systolic 113–140; BP diastolic 59–91; PULSE 95–153; RESP 18–24; TEMP 97.9–98.1; O2SAT 97
[2016-09-06] MEDS: DILTIAZEM 125 MG/NS 100 ML IV SCH ×4 (01:21→11:53)
[2016-09-06] MEDS: CHLORHEXIDINE GLUCONATE 2 % 1 PACK (2 CLOTHS)(taper/protocol) TOPICAL SCH (04:00)
[2016-09-06] MEDS: APIXABAN 2.5 MG TABLET PO SCH ×2 (06:00→18:00)
--- NOTE | 2016-09-06 08:49 | PD.CARD.PN ---
Subjective Subjective Remarks Asleep, very difficult to arouse. at bedside. Recurrent atrial fib overnight, now on Cardizem drip. Telemetry shows heart rates 120-1:30. Objective Medications Current Medications Medications (Trade) Dose Ordered Sig/Luis A Route Start Time Stop Time Status Last Admin (NS Flush) 2 ml UNSCH PRN IV FLUSH 08/29/16 17:00 (NS Flush) 2 ml BID IV FLUSH 08/29/16 21:00 09/05/16 21:05 (Tylenol) 650 mg Q4H PRN PO 08/29/16 17:00 (Zofran Inj) 4 mg Q6H PRN IVP 08/29/16 17:00 09/01/16 09:15 (Narcan Inj) 0.4 mg UNSCH PRN IV 08/29/16 17:00 (Eliquis) 2.5 mg BID@06,18 PO 08/29/16 18:00 09/05/16 16:39 (Lipitor) 20 mg HS PO 08/29/16 21:00 09/05/16 21:04 (Protonix) 20 mg DAILY PO 08/30/16 09:00 09/05/16 08:37 (Xanax) 0.25 mg Q6H PRN PO 08/29/16 22:15 09/05/16 21:04 (Tylenol) 650 mg Q4H PRN PO 08/30/16 01:30 09/02/16 20:37 (Megace) 40 mg DAILY PO 08/31/16 11:00 09/05/16 08:37 Miscellaneous Information Patient in critical care unit? Ass... [id number] .XX 09/02/16 01:30 (Chlorhexidine 2% Cloth) 3 pack UNSCH PRN TOPICAL 09/02/16 01:30 09/07/16 01:27 (KCl) 30 meq Q12HR PO 09/02/16 09:00 09/05/16 21:04 (Lopressor) 100 mg Q12HR PO 09/02/16 21:00 09/05/16 21:04 (Augmentin) 500 mg Q12HR PO 09/02/16 21:00 09/05/16 21:04 (Lexapro) 10 mg HS PO 09/03/16 21:00 09/05/16 21:04 (Cardizem Cd) 240 mg DAILY PO 09/04/16 09:00 Hold 09/05/16 08:37 (Lasix) 20 mg DAILY PO 09/04/16 09:00 09/05/16 08:37 Digoxin 0.125 mg 0.125 mg DAILY PO 09/05/16 09:00 09/05/16 08:37 (Cardizem Inj/NS Inj) 125 ml @ 0 mls/hr TITRATE IV 09/06/16 01:15 09/06/16 01:21 Vital Signs / I&O Vital Signs Date Time Temp Pulse Resp B/P Pulse Ox O2 Delivery O2 Flow Rate FiO2 09/06/16 08:00 97.9 95 18 130/80 97 09/06/16 04:00 100 21 140/83 09/06/16 03:37 95 22 117/88 09/06/16 03:22 95 21 128/88 09/06/16 02:52 22 122/70 09/06/16 02:25 125 22 118/59 09/06/16 02:05 24 113/59 09/06/16 01:53 153 09/06/16 01:50 150 24 129/91 09/06/16 01:35 151 24 118/59 09/06/16 00:00 98.1 24 122/60 97 09/05/16 21:00 Room Air 09/05/16 20:00 97.2 128 18 132/68 97 09/05/16 20:00 94 09/05/16 17:00 Room Air 09/05/16 16:00 97.7 91 20 128/68 97 09/05/16 16:00 Nasal Cannula 1.00 09/05/16 12:00 3.00 09/05/16 11:56 97.2 95 20 118/69 98 I/O 09/05/16 09/05/16 09/05/16 09/06/16 09/06/16 09/06/16 07:00 15:00 23:00 07:00 15:00 23:00 Intake Total 420 ml 240 ml 0 ml Balance 420 ml 240 ml 0 ml Intake Oral 420 ml 240 ml 0 ml # Voids 2 3 1 0 # Bowel Movements 1 0 0 0 Physical Exam GENERAL: Thin, well-developed patient. SKIN: Warm and dry. HEAD: Normocephalic. EYES: No scleral icterus. No injection or drainage. NECK: Supple, trachea midline. No JVD or lymphadenopathy. CARDIOVASCULAR: Tachycardic rate, irregular rhythm without murmurs, gallops, or rubs. RESPIRATORY: Breath sounds equal bilaterally. No accessory muscle use. GASTROINTESTINAL: Abdomen soft, nondistended. EXTREMITIES: No cyanosis, or edema. NEUROLOGICAL: Asleep, lethargic, difficult to arouse. Imaging Last Impressions Chest X-Ray 09/02/16 0800 Signed Impressions: Service Date/Time: Friday, September 02, 2016 07:59 - CONCLUSION: Interval improvement with better aeration and less interstitial edema and pleural effusions. Ayden Gutierres MD FACR Assessment and Plan Problem List: (1) Atrial fibrillation with RVR Assessment and Plan: Recurrent overnight, Cardizem IV initiated per protocol. Heart rate remaining 120-130. Can increase Cardizem IV to 15 mg/hour to keep heart rate less than 100. (2) Delirium Assessment and Plan: Remains confused and difficult to arouse. Not a suitable candidate at this time for invasive cardiac intervention. Continue medical management per my discussion with Dr. Abel. Assessment and Plan Discussed with patient's , RN, Dr. Abel. Rebecca Saucedo Sep 06, 2016 08:49
[2016-09-06] MEDS: SODIUM CHLORIDE 0.9% FLUSH 10 ML FLUSH IV FLUSH SCH (09:00)
[2016-09-06] MEDS: AMOXICILLIN/CLAVULANATE K 500 MG TAB PO SCH (09:15)
[2016-09-06] MEDS: MEGESTROL ACETATE 40 MG TAB PO SCH (09:18)
[2016-09-06] MEDS: POTASSIUM CHLORIDE 10 MEQ CONTROLLED RELEASE TAB PO SCH (09:18)
[2016-09-06] MEDS: FUROSEMIDE 20 MG TAB PO SCH (09:19)
[2016-09-06] MEDS: PANTOPRAZOLE SOD 20 MG DELAYED RELEASE TAB PO SCH (09:19)
[2016-09-06] MEDS: METOPROLOL TARTRATE 100 MG TAB PO SCH (09:55)
[2016-09-06] MEDS: DIGOXIN 0.125 MG TAB PO SCH (09:55)
[2016-09-06] MEDS: ONDANSETRON HCL 4 MG/2 ML VIAL IVP PRN (10:33)
--- NOTE | 2016-09-06 11:07 | HHI.PR ---
Subjective Subjective Remarks AMarcos lin with RVR now on cardizem gtt more debilitated, sleeping more and not eating much still confused when she wakes up at bsd, feeling frustrated doesn't know what else to do understand she can't have PPM/ablation and has been declining. has been talking to sons, would not want to continue like this Review of Systems Constitutional Constitutional Remarks 12 point ROS unable to complete Vitals/Results Intake & Output 09/05/16 09/05/16 09/06/16 14:59 22:59 06:59 Intake Total 420 ml 240 ml 0 ml Balance 420 ml 240 ml 0 ml Intake Oral 420 ml 240 ml 0 ml # Voids 3 1 0 # Bowel Movements 0 0 0 Vital Signs Vital Signs Date Time Temp Pulse Resp B/P Pulse Ox O2 Delivery O2 Flow Rate FiO2 09/06/16 09:00 Room Air 09/06/16 08:00 97.9 95 18 130/80 97 09/06/16 07:56 96 09/06/16 04:00 100 21 140/83 09/06/16 03:37 95 22 117/88 09/06/16 03:22 95 21 128/88 09/06/16 02:52 22 122/70 09/06/16 02:25 125 22 118/59 09/06/16 02:05 24 113/59 09/06/16 01:53 153 09/06/16 01:50 150 24 129/91 09/06/16 01:35 151 24 118/59 09/06/16 00:00 98.1 24 122/60 97 09/05/16 21:00 Room Air 09/05/16 20:00 97.2 128 18 132/68 97 09/05/16 20:00 94 09/05/16 17:00 Room Air 09/05/16 16:00 97.7 91 20 128/68 97 09/05/16 16:00 Nasal Cannula 1.00 09/05/16 12:00 3.00 09/05/16 11:56 97.2 95 20 118/69 98 CBC/BMP: 09/03/16 1235 09/05/16 0638 Physical Exam General General Appearance: Well Developed, Sleeping, Malnourished Eyes Eye Exam: Pupils Equal, Pupils Reactive Ears & Nose Ears & Nose Exam: Nasal Mucosa [place] Throat Throat Exam: Oral Mucosa [place] & Moist Neck Neck Exam: Neck Supple, Trachea Midline Pulmonary Resp Exam: Decreased Bases Cardiology CV Exam: Irregular, Arrhythmia, Tachycardia Gastrointestinal/Abdomen GI Exam: Soft, Non-Tender, Bowel Sounds Present, Non-Distended Musculoskeletal MS Exam: Joints Intact Integumentary Skin Exam: Warm, Dry Extremeties Extremities Exam: No Edema, Pedal Pulses Palpable Neurologic Neuro Remarks lethargic Psychiatric Psych Exam: Appropriate Responses VTE Prophylaxis VTE Prophylaxis Device: SCDs VTE Remarks Eliquis PUD Prophylasis PUD Prophylaxis: Protonix Assessment/Plan Problem List: (1) Lactic acidosis (2) Atrial fibrillation with RVR (3) Valvular disease (4) Mild cognitive impairment (5) Hypertension (6) GERD (gastroesophageal reflux disease) (7) UTI (urinary tract infection) (8) Sepsis (9) Anxiety (10) Hypokalemia (11) Pleural effusion (12) Delirium (13) CHF (congestive heart failure) (14) History of CVA (cerebrovascular accident) (15) Hypoxia Assessment/Plan lactic acidosis, sepsis, resolving poss. PNA dc PO abx follow cultures, negative so far Duonebs supplemental oxygen Acute CHF, afib RVR continue CCB, BB, Dig appreciate cardiology input CXR improved, diuresing well Continue with Lasix 20 mg by mouth daily K replacement Echo done, EF 50-55%-reserved left ventricular function with moderate aortic stenosis, moderate mitral and tricuspid regurgitation, mild aortic insufficiency and pulmonary hypertension, small atrial septal defect. Remains with uncontrolled heart rate, at this time Dr. Abel plans to continue with medical management. Possible ablation and pacemaker when patient more stable continue Eliquis afib RVR last night, back on Cardizem gtt. Not able to have invasive procedure. Hx of MCI and CVA, poss. underlying dementia Remains confused, less agitated Continue Xanax PRN may need Seroquel states she drinks 1-2 glasses of wine every day, "small" continue to monitor neuro status UA okay HTN continue home meds BP better, was hypotensive Malnourished enc. po intake Continue Megace GERD, continue with PPI PT for eval and tx OOB daily Appears to be declining, more confused, lethargic. d/w at length, pt. would not want to live like this. He has been talking to sons. agreeable with hospice consult D/W RN D/W Dr. Kelly D/W pt. and This patient was seen by myself and Dr. Kelly, this note is written on his behalf. Problem Qualifiers (1) GERD (gastroesophageal reflux disease): Qualified Code: K21.9 - Gastroesophageal reflux disease, esophagitis presence not specified (2) UTI (urinary tract infection): Qualified Code: N39.0 - Urinary tract infection without hematuria, site unspecified (3) Sepsis: Qualified Code: A41.9 - Sepsis, due to unspecified organism (4) CHF (congestive heart failure): Qualified Code: I50.9 - Acute congestive heart failure, unspecified congestive heart failure type Tamika Jim Sep 06, 2016 11:06 Qualified Code: I50.9 - Acute congestive heart failure, unspecified congestive heart failure type Tamika Jim Sep 06, 2016 11:06
[2016-09-06] MEDS ORDERED: DIGO0.12 PO (16:17)
[2016-09-06] MEDS ORDERED: FURO20TA PO (16:17)
[2016-09-06] MEDS ORDERED: CARD240C6 PO (16:17)
[2016-09-06] MEDS ORDERED: POTA-243 PO (16:17)
--- NOTE | 2016-09-09 13:03 | HHI.DS ---
Discharge Summary Admission Date Aug 29, 2016 at 16:48 Discharge Date: Sep 06, 2016 Admitting Diagnosis sepsis (1) Sepsis (2) Hypoxia (3) CHF (congestive heart failure) (4) UTI (urinary tract infection) (5) GERD (gastroesophageal reflux disease) (6) Hypertension (7) Mild cognitive impairment (8) History of CVA (cerebrovascular accident) (9) Valvular disease (10) Atrial fibrillation with RVR (11) Frequent falls CBC/BMP: 09/05/16 0638 Imaging Last Impressions Chest X-Ray 09/02/16 0800 Signed Impressions: Service Date/Time: Friday, September 02, 2016 07:59 - CONCLUSION: Interval improvement with better aeration and less interstitial edema and pleural effusions. Ayden Gutierres MD FACR Hospital Course This is a pleasant 86-year-old white female who has had multiple hospital admissions since January of 2016. The patient had a stroke during that period of time and has had significant history of atrial fibrillation, atrial flutter, uncontrolled heart rate, as well as falls, generalized debility and left pleural effusion. The patient currently is complaining of some nausea without vomiting, tachycardia which has been controlled with IV Cardizem, mild heavy chest pain midsternal that seems to wax and wane. The patient denies any headache. No current diarrhea or constipation but does note generalized fatigue, malaise and some shortness of breath. Her devoted and son are currently with her at her bedside. The patient is awake. She is alert but she is pleasantly confused over person, situation and time. She does have does have a history of TIAs, CVA and probable dementia. The patient recently had a UTI which was treated with p.o. antibiotics. She did finish her course of treatment but now is feeling weak again. PAST MEDICAL HISTORY Includes: 1. Atrial fibrillation. 2. Alzheimer's disease. 3. Anxiety. 4. Depression. 5. Uncontrolled atrial fibrillation. 6. Hyperlipidemia. 7. Cerebrovascular accident. 8. Dementia. 9. Noted to be slight [id number]. 10. Gastroesophageal reflux disease. 11. Hiatal hernia. 12. Hypertension. 13. Generalized weakness. 14. Dizziness with falls. 15. Recent urinary tract infection. PAST SURGICAL HISTORY 1. Hernia repair. 2. section. 3. Bilateral cataracts. 4. Removal of ovarian cyst. 5. Hysterectomy. 6. Tonsillectomy. 7. Dermoid cyst removed at that age of 46. 8. Pleural effusion. 9. ___. ALLERGIES ASPIRIN. MEDICATIONS Reported medications: 1. Norvasc. 2. Lisinopril. 3. Eliquis. 4. Atorvastatin. 5. Lexapro. 6. Nexium. 7. Metoprolol. SOCIAL HISTORY The patient is , currently lives with her , has a supportive son that assists his parents. The patient denies any tobacco or alcohol use but does consume a couple of glasses of wine daily. REVIEW OF SYSTEMS Due to the patient's poor historian, most of the information including her symptoms is being relayed per the . She is noted to be positive for the things mentioned in the HPI which include generalized weakness and malaise, nausea but no emesis, pleasant confusion. She does note some dizziness when standing and debility which has worsened over the past 6 months. Otherwise systems are negative and unremarkable. PHYSICAL EXAMINATION VITAL SIGNS: Temperature is 97.6, pulse labile between 97-125, respiratory rate 18-20. Blood pressure initially in the ER was 93/73. After fluid bolus and heart rate controlled with IV Cardizem, 109/53 and 105/73. O2 sat initially in the ER was 81, currently 93% on room air. GENERAL: Thin, elderly white female looks to be a little younger than her stated age, resting in the bed. She is alert, pleasantly confused. Pale mucous membranes. Pale, thin skin turgor. Warm and dry. HEENT: Atraumatic, normocephalic. BARBER at 2. Mucous membranes slightly dry. NECK: Thin, supple. CARDIOVASCULAR: S1-S2, irregular rate and rhythm. No peripheral edema noted. LUNGS: The lung roth are essentially clear anteriorly and posteriorly with no wheezes or rhonchi. She does have some decreased breath sounds in her bases, left is more decreased than the right. ABDOMEN: Flat, soft, nontender, nondistended. Active bowel sounds but soft. MUSCULOSKELETAL: Moves her extremities with purpose. She can overcome resistance in her lower extremities. Upper extremities are fairly equal although the patient seems to note more weakness of the left side than the right. SKIN: Pale, warm and dry. NEUROLOGIC: Pleasantly confused. Talkative. Tongue is midline. PSYCHIATRIC: Mild anxiety noted over current hospital stay. Hopes to go home very soon. Speech is clear and understandable. LABORATORY DATA Diagnostic data, WBC count of 8.5, RBC 4.04, hemoglobin 12.6, hematocrit 37.5, platelet count 260. Monocyte elevation at 10. Eosinophils 4.4. Further difs are negative. PT INR is 1.2. Chemistry, sodium 138, potassium 3.5, chloride 103, carbon dioxide 23.5. Anion gap 12, BUN 14, creatinine 0.72, GFR 77, random glucose 99, lactic acid 2.1. Other abnormals are AST 47, ALT is 64. Troponin is less than 0.02. BNP is 728. Total protein 7.3, albumin 3.4. Urine is negative for glucose, ketones, occult blood, nitrites, bilirubin, leukocyte esterase. Her urine is yellow and clear. Specific gravity 1.027, pH 6.0. Moderate amount of mucus but no culture and sensitivity is indicated. IMAGING The imaging studies show chest x-ray to have a left basilar atelectasis and effusion. (1) Lactic acidosis (2) Atrial fibrillation with RVR (3) Valvular disease (4) Mild cognitive impairment (5) Hypertension (6) GERD (gastroesophageal reflux disease) (7) UTI (urinary tract infection) (8) Sepsis (9) Anxiety (10) Hypokalemia (11) Pleural effusion (12) Delirium (13) CHF (congestive heart failure) (14) History of CVA (cerebrovascular accident) (15) Hypoxia Assessment/Plan lactic acidosis, sepsis, resolving poss. PNA dc PO abx follow cultures, negative so far Duonebs supplemental oxygen Acute CHF, afib RVR continue CCB, BB, Dig appreciate cardiology input CXR improved, diuresing well Continue with Lasix 20 mg by mouth daily K replacement Echo done, EF 50-55%-reserved left ventricular function with moderate aortic stenosis, moderate mitral and tricuspid regurgitation, mild aortic insufficiency and pulmonary hypertension, small atrial septal defect. Remains with uncontrolled heart rate, at this time Dr. Abel plans to continue with medical management. Possible ablation and pacemaker when patient more stable continue Eliquis afib RVR last night, back on Cardizem gtt. Not able to have invasive procedure. Hx of MCI and CVA, poss. underlying dementia Remains confused, less agitated Continue Xanax PRN may need Seroquel states she drinks 1-2 glasses of wine every day, "small" continue to monitor neuro status UA okay HTN continue home meds BP better, was hypotensive Malnourished enc. po intake Continue Megace GERD, continue with PPI PT for eval and tx OOB daily Appears to be declining, more confused, lethargic. d/w at length, pt. would not want to live like this. He has been talking to sons. agreeable with hospice consult D/W RN D/W Dr. Kelly D/W pt. and This patient was seen by myself and Dr. Kelly, this note is written on his behalf. Pt Condition on Discharge: Deteriorating Discharge Disposition: Hospice/Med Facility Discharge Instructions DIET: Follow Instructions for: Heart Healthy Diet Fluid Restrictions: 1500 cc/day Activities you can perform: Weight Bearing as Lou New Medications: Digoxin (Digoxin) 0.125 Mg Tab 0.125 MG PO DAILY a fib #30 TAB Diltiazem CD 24 HR (Cardizem CD 24 HR) 240 Mg Caper 240 MG PO DAILY a fib #30 CAP Furosemide (Furosemide) 20 Mg Tab 20 MG PO DAILY chf #30 TAB Potassium Chloride ER (Klor-Con 10) 10 Meq Tab 10 MEQ PO DAILY low k #30 TAB Continued Medications: Apixaban (Eliquis) 2.5 Mg Tab 2.5 MG PO BID@06,18 afib and stroke #60 Ref 0 TAB Escitalopram (Lexapro) 10 Mg Tab 10 MG PO HS #30 Ref [address] (Nexium) 20 Mg Capdr 20 MG PO DAILY Ref 0 CAP Lisinopril (Lisinopril) 5 Mg Tab 10 MG PO DAILY htn #60 TAB Metoprolol Tartrate (Metoprolol Tartrate) 100 Mg Tab 100 MG PO BID #60 Ref 0 TAB Discontinued Medications: Amlodipine (Norvasc) 10 Mg Tab 10 MG PO DAILY htn #30 TAB Atorvastatin (Atorvastatin) 20 Mg Tab 20 MG PO HS Cholesterol Management Ref 0 TAB Tamika Jim Sep 09, 2016 13:03
== END 2016-09-06 19:30 | disposition hospice, inpatient (51) | DRG 871 ==
LOC: NEPC 14:00 → NEDA 16:48 → N04A 19:30 → N04B 08-31 16:15 → HIME 09-01 14:10 → N04A 09-02 22:33 → N04B 09-05 19:08
PROVIDERS: ADMIT Internal Medicine; ATTEND Internal Medicine
DX: A41.9 Sepsis, unspecified organism (principal); J18.9 Pneumonia, unspecified organism; E46 Unspecified protein-calorie malnutrition; R64 Cachexia; I11.0 Hypertensive heart disease with heart failure; I27.2 Other secondary pulmonary hypertension; E87.2 Acidosis; I50.9 Heart failure, unspecified; I48.92 Unspecified atrial flutter; J98.11 Atelectasis; Q21.1 Atrial septal defect; G30.9 Alzheimer's disease, unspecified; I48.2 Chronic atrial fibrillation; F02.80 Dementia in other diseases classified elsewhere, unspecified severity, without behavioral disturbance, psychotic disturbance, mood disturbance, and anxiety; I08.3 Combined rheumatic disorders of mitral, aortic and tricuspid valves; E78.5 Hyperlipidemia, unspecified; D63.8 Anemia in other chronic diseases classified elsewhere; E87.6 Hypokalemia; I25.10 Atherosclerotic heart disease of native coronary artery without angina pectoris; K21.0 Gastro-esophageal reflux disease with esophagitis; R09.02 Hypoxemia; R65.20 Severe sepsis without septic shock; Z79.01 Long term (current) use of anticoagulants; Z86.73 Personal history of transient ischemic attack (TIA), and cerebral infarction without residual deficits; F41.9 Anxiety disorder, unspecified; H91.90 Unspecified hearing loss, unspecified ear
CPT/HCPCS: 36600; 71010; 80048; 80053; 81001; 82550; 82805; 83605; 83735; 83880; 84100; 84484; 85025; 85027; 85610; 85730; 87040; 87641; 93005; 93306; 94640; 94664; J1160; J1630; J1940; J2060; J2405; J2543; J7030; J7040; P9612